=== PATIENT | male | born 1960 | race Caucasian/White ===

== ENCOUNTER 2020-08-31 15:25 | Inpatient (IN) ==
[2020-08-31] MEDS ORDERED: MoRPHine SULFATE 4 MG/ML 1 ML CARP\\VIAL IV STA (15:41)
[2020-08-31] MEDS ORDERED: SODIUM CHLORIDE 0.9% 1000ML 1,000 ML IV ONE (15:44)
--- NOTE | 2020-08-31 15:46 | Emergency Department Note ---
Impression & Plan Acute cholecystitis, Abdominal pain, Acute hypernatremia, Dehydration ED Provider Note Provider: Ignacio Conley MD DATE OF SERVICE:08/31/2020 CHIEF COMPLAINT: Abdominal pain, decreased appetite HISTORY OF PRESENT ILLNESS: Patient is a 60-year-old gentleman history of gout, dementia nonverbal, hypothyroidism, hypertension presenting here via ambulance from his facility in [place] today reportedly with 3 days of worsening abdominal pain decreased intake and not being his normal self and not being able to get out of bed. No bowel movement for 3 is reported. No nausea or vomiting is note d per EMS report. I do report a KUB was obtained there but I do not see results for this. Patient himself is in a provide significant history as he is nonverbal. Patient's states she does not have much more about his acute status as he been nonverbal for more than a year and she has not seen him since lockdown for the and January. No history of intra-abdominal surgeries are reported. There is been no reported trauma or fevers from the available information. REVIEW OF SYSTEMS: Noted secondary to the patient's nonverbal status PAST MEDICAL HISTORY: As noted above MEDICATIONS: Reviewed MAR from the facility of home medications including Depakote SOCIAL HISTORY: , currently resides at [facility] in [place] PHYSICAL EXAM: GENERAL: alert to loud verbal and physical stimuli. Nonverbal himself. Head: normocephalic and atraumatic EYES: No injection, discharge or icterus. NECK: Trachea midline. Supple. ENT: Mucous membranes pink and moist. LUNGS: Airway patent. No retractions. Breath sounds clear HEART: Regular rate and rhythm. No chest wall tenderness ABDOMEN: Guarding with some diffuse abdominal tenderness predominantly on the right side of the mid abdomen. No masses appreciated. BACK: No bilateral flank tenderness. SKIN: Acyanotic, warm, dry, without rashes EXTREMITIES: Without swelling, tenderness or deformity NEUROLOGICAL: Moves all extremities. Nonverbal. EKG: Normal sinus rhythm 97 bpm. No PVC or PAC. No acute ST segment elevation or depression. Normal QTC. CONTINUOUS CARDIAC MONITORING: was ordered and showed a heart rate of 92 bpm in normal sinus rhythm Patient's laboratory studies and imaging reviewed. Differential includes Appendicitis, infections, diverticulitis, UTI, obstruction, mesenteric ischemia, aortic pathology, inflammatory bowel disease, renal colic, PUD, pancreatitis, biliary pathology, hernia, volvulus, constipation, as well as other pathologies. IMPRESSION/MEDICAL DECISION MAKING: Patient presents with [facility] facility for several days of abdominal pain like a bowel movement decreased appetite and not been able to get around like normal. No trauma is reported. Patient himself provides limited history due to nonverbal status. Patient does not describe significant intra-abdominal hi story other than possibly some gallbladder sludge in the past. Patient does appear to be guarding and having some abdominal tenderness on exam. Basic labs were completed as well as an EKG, troponin, and a CT scan of the abdomen pelvis to look for possible etiologies. Patient given some morphine for pain and some IV fluids a liter of normal saline. Labs show white count of 10 with mild anemia 12.6. Hypernatremia of 147 noted creatinine of 1.36 and BUN is slightly elevated 3 8. Prior kidney function the question of there is a mild dehydration he did receive IV fluids. Valproic acid level not significantly elevated. Troponins undetectable. Bilirubin 0.8 and AST and ALT not elevated and no signs of transaminitis or hepatitis. Lipase not elevated and seem consistent with pancreatitis. CT scan shows evidence of a thickened distended gallbladder with surrounding inflammatory changes highly suspicious for acute cholecystitis with a few enlarged lymph nodes noted. No evidence of bowel obstruction or appendicitis. Trace pleural effusions noted. With this finding I did give the patient a dose of Zosyn. Discussed and he is more comfortable on reevaluation. Updated . Alerted our general surgeon to evaluate the patient. Given his medical history of hyponatremia will discuss with the hospitalist for further medical admission and again surgical consultation for acute cholecystectomy is pending from our surgeon. Rapid Covid test to facilitate possible OR case was initiated. DIAGNOSIS: Acute cholecystitis, hyponatremia, dehydration, abdominal pain DISPOSITION: Hospitalist will evaluate as well as general surgeon Patient's is updated and agreeable with the plan. Past Med/Surg History Social History Smoking Status: Former smoker Feels Safe at Home: Yes Allergies Allergies Allergy/AdvReac Type Severity Reaction Status Date / Time No Known Allergies Allergy Verified 08/31/20 16:52 Home Meds Home Medications Medication Instructions Recorded Confirmed B complex-vitamin C-folic acid 1 tab PO DAILY 08/31/20 08/31/20 [Folbee Plus] acetaminophen [Tylenol Extended 1,200 mg PO TID PRN MDD 5 08/31/20 08/31/20 Release] TABLETS/24 HOURS acetaminophen [Tylenol Extended 650 mg PO TID PRN MDD 5 TABLETS/24 08/31/20 08/31/20 Release] HOURS cholecalciferol (vitamin D3) 2,000 unit PO DAILY 08/31/20 08/31/20 [Vitamin D3] divalproex 250 mg PO BID 08/31/20 08/31/20 docusate sodium [DOK] 100 mg PO BID 08/31/20 08/31/20 escitalopram oxalate 10 mg PO DAILY 08/31/20 08/31/20 febuxostat 40 mg PO DAILY 08/31/20 08/31/20 hydroxyzine HCl 50 mg PO Q6H PRN 08/31/20 08/31/20 ibuprofen 400 mg PO BID 08/31/20 08/31/20 levothyroxine 88 mcg PO DAILY 08/31/20 08/31/20 magnesium hydroxide [Milk of 30 ml PO DAILY PRN 08/31/20 08/31/20 Magnesia] melatonin 3 mg PO HS 08/31/20 08/31/20 memantine 28 mg PO DAILY 08/31/20 08/31/20 mirtazapine 15 mg PO HS 08/31/20 08/31/20 quetiapine 100 mg PO TID 08/31/20 08/31/20 sennosides [senna] 8.6 mg PO Q2D 08/31/20 08/31/20 telmisartan 20 mg PO HS 08/31/20 08/31/20 Results & Data (ED) Vital Signs Vital Signs - 24 hr 08/31/20 15:52 08/31/20 16:06 08/31/20 16:11 Temperature 36.8 C Temperature Source Oral Pulse Rate 81 88 98 H Pulse Rate [Finger] Pulse Rate from SpO2 Sensor 88 97 H Respiratory Rate 17 24 22 Blood Pressure 127/77 128/80 Blood Pressure Mean 93 90 Pulse Oximetry 98 98 96 Oxygen Delivery Method Room Air Sepsis Recent Fever Within 48 Hours No Sepsis New/Unexplained Change in Mental Status N/A Sepsis Action Taken by Nursing No Action Required 08/31/20 16:12 08/31/20 16:30 08/31/20 17:12 Temperature Temperature Source Pulse Rate 86 98 H Pulse Rate [Finger] Pulse Rate from SpO2 Sensor 111 H Respiratory Rate 16 15 Blood Pressure 128/86 Blood Pressure Mean 108 Pulse Oximetry 97 92 Oxygen Delivery Method Room Air Sepsis Recent Fever Within 48 Hours Sepsis New/Unexplained Change in Mental Status Sepsis Action Taken by Nursing 08/31/20 17:14 08/31/20 17:30 08/31/20 18:00 Temperature Temperature Source Pulse Rate 92 H 92 H Pulse Rate [Finger] 96 H Pulse Rate from SpO2 Sensor Respiratory Rate 17 22 17 Blood Pressure Blood Pressure Mean Pulse Oximetry 98 Oxygen Delivery Method Room Air Sepsis Recent Fever Within 48 Hours Sepsis New/Unexplained Change in Mental Status Sepsis Action Taken by Nursing 08/31/20 18:05 Temperature Temperature Source Pulse Rate 93 H Pulse Rate [Finger] Pulse Rate from SpO2 Sensor Respiratory Rate 20 Blood Pressure 155/81 H Blood Pressure Mean 104 Pulse Oximetry Oxygen Delivery Method Sepsis Recent Fever Within 48 Hours Sepsis New/Unexplained Change in Mental Status Sepsis Action Taken by Nursing Laboratory Data Result diagrams: 08/31/20 16:05 08/31/20 16:05 Lab Results 08/31/20 08/31/20 08/31/20 Range/Units 16:05 16:05 16:05 WBC 10.20 (4.8-10.8) K/uL RBC 3.99 L (4.7-6.1) M/uL Hgb 12.6 L (14.0-18.0) g/dL Hct 37.6 L (42-52) % MCV 94.2 (80-100) fL MCH 31.6 (25-34) pg MCHC 33.5 (32-36) g/dL RDW Std Deviation 46.7 H (36.4-46.3) fL RDW Coeff of Stella 13.4 (11.5-14.5) % Plt Count 360 (130-400) K/uL MPV 9.8 (7.4-10.4) fL Immature Gran % (Auto) 0.2 % Neut % (Auto) 79.8 % Lymph % (Auto) 11.4 % [place] % (Auto) 8.0 % Eos % (Auto) 0.5 % Baso % (Auto) 0.1 % Neut # (Auto) 8.14 H (1.4-6.5) K/uL Lymph # (Auto) 1.16 L (1.2-3.4) K/uL [place] # (Auto) 0.82 H (0.11-0.59) K/uL Eos # (Auto) 0.05 (0-0.5) K/uL Baso # (Auto) 0.01 (0-0.2) K/uL Immature Gran # (Auto) 0.02 (0.00-0.02) K/uL Sodium 147 H (136-145) mmol/L Potassium 4.0 (3.5-5.1) mmol/L Chloride 113 H (98-107) mmol/L Carbon Dioxide 28 (21-32) mmol/L Anion Gap 6.0 (3-11) BUN 38 H (7-18) mg/dl Creatinine 1.36 (0.6-1.4) mg/dl Est Cr Clr Drug Dosing 52.7 ml/min Est GFR ( Amer) 64.2 Est GFR (Non-Af Amer) 55.4 BUN/Creatinine Ratio 27.6 H (10-20) Glucose 102 H (70-99) mg/dl Calcium 9.6 (8.5-10.1) mg/dl Total Bilirubin 0.8 (0.2-1) mg/dl AST 30 (15-37) U/L ALT 46 (12-78) U/L Alkaline Phosphatase 103 (45-117) U/L Troponin I < 0.015 (0-0.045) ng/ml Total Protein 7.8 (6.4-8.2) gm/dl Albumin 2.5 L (3.4-5.0) gm/dl Globulin 5.3 H (2.5-4.0) gm/dl Albumin/Globulin Ratio 0.5 L (0.9-2) Lipase 79 (73-393) U/L Valproic Acid 27 L (50-100) mcg/ml COVID-19 Eval Order 08/31/20 Range/Units 18:10 WBC (4.8-10.8) K/uL RBC (4.7-6.1) M/uL Hgb (14.0-18.0) g/dL Hct (42-52) % MCV (80-100) fL MCH (25-34) pg MCHC (32-36) g/dL RDW Std Deviation (36.4-46.3) fL RDW Coeff of Stella (11.5-14.5) % Plt Count (130-400) K/uL MPV (7.4-10.4) fL Immature Gran % (Auto) % Neut % (Auto) % Lymph % (Auto) % [place] % (Auto) % Eos % (Auto) % Baso % (Auto) % Neut # (Auto) (1.4-6.5) K/uL Lymph # (Auto) (1.2-3.4) K/uL [place] # (Auto) (0.11-0.59) K/uL Eos # (Auto) (0-0.5) K/uL Baso # (Auto) (0-0.2) K/uL Immature Gran # (Auto) (0.00-0.02) K/uL Sodium (136-145) mmol/L Potassium (3.5-5.1) mmol/L Chloride (98-107) mmol/L Carbon Dioxide (21-32) mmol/L Anion Gap (3-11) BUN (7-18) mg/dl Creatinine (0.6-1.4) mg/dl Est Cr Clr Drug Dosing ml/min Est GFR ( Amer) Est GFR (Non-Af Amer) BUN/Creatinine Ratio (10-20) Glucose (70-99) mg/dl Calcium (8.5-10.1) mg/dl Total Bilirubin (0.2-1) mg/dl AST (15-37) U/L ALT (12-78) U/L Alkaline Phosphatase (45-117) U/L Troponin I (0-0.045) ng/ml Total Protein (6.4-8.2) gm/dl Albumin (3.4-5.0) gm/dl Globulin (2.5-4.0) gm/dl Albumin/Globulin Ratio (0.9-2) Lipase (73-393) U/L Valproic Acid (50-100) mcg/ml COVID-19 Eval Order Covid19 [facility]Now [facility] Administered Medications Discontinued Medications Sodium Chloride (Nss 1000ml) 1,000 mls @ 999 mls/hr IV .Q1H1M ONE Stop: 08/31/20 16:44 Last Infusion: 08/31/20 17:18 Dose: 0 mls/hr Documented by: [id number] Admin: 08/31/20 16:14 Dose: 999 mls/hr Documented by: [id number] Piperacillin Sod/Tazobactam Sod (Zosyn) 4.5 gm in 120 mls @ 240 mls/hr IV NOW ONE Stop: 08/31/20 18:06 Last Admin: 08/31/20 18:22 Dose: 240 mls/hr Documented by: [id number] Ioversol (Ioversol 100ml) 91 ml IV ONCE ONE Stop: 08/31/20 17:04 Last Admin: 08/31/20 17:04 Dose: 91 ml Documented by: [id number] Morphine Sulfate (Morphine Sulfate 4 Mg/Ml 1 Ml Carp\Vial) 4 mg IV NOW STA Stop: 08/31/20 15:42 Last Admin: 08/31/20 16:14 Dose: 4 mg Documented by: [id number] Discharge Plan Visit Data Chief Complaint: Abdominal Pain Stated Complaint: AB PAIN, CONSTIPATION ED Provider: Ignacio Conley Discharge Problem: Acute cholecystitis, Abdominal pain, Acute hypernatremia, Dehydration Patient Disposition: Being Evaluated by Hospitalist Prescriptions Prescriptions: No Action Folbee Plus 5 mg Tablet 1 tab PO DAILY RF: 0 divalproex 250 mg Tablet,Delayed Release (Dr/Ec) 250 mg PO BID RF: 0 melatonin 3 mg Tablet 3 mg PO HS RF: 0 levothyroxine 88 mcg Tablet 88 mcg PO DAILY RF: 0 ibuprofen 200 mg Tablet 400 mg PO BID RF: 0 docusate sodium [DOK] 100 mg Capsule 100 mg PO BID RF: 0 escitalopram oxalate 10 mg Tablet 10 mg PO DAILY RF: 0 febuxostat 40 mg Tablet 40 mg PO DAILY RF: 0 memantine 28 mg Capsule,Sprinkle,Er 24hr 28 mg PO DAILY RF: 0 sennosides [senna] 8.6 mg Tablet 8.6 mg PO Q2D RF: 0 hydroxyzine HCl 50 mg Tablet 50 mg PO Q6H PRN (Reason: Anxiety) RF: 0 quetiapine 100 mg Tablet 100 mg PO TID RF: 0 acetaminophen [Tylenol Extended Release] 650 mg Tablet Extended Release 650 mg PO TID MDD 5 TABLETS/24 HOURS PRN (Reason: Pain, Mild) RF: 0 acetaminophen [Tylenol Extended Release] 650 mg Tablet Extended Release 1,200 mg PO TID MDD 5 TABLETS/24 HOURS PRN (Reason: Pain, Severe) RF: 0 magnesium hydroxide [Milk of Magnesia] 400 mg/5 mL Suspension 30 ml PO DAILY PRN (Reason: Constipation) RF: 0 telmisartan 20 mg Tablet 20 mg PO HS RF: 0 mirtazapine 15 mg Tablet 15 mg PO HS RF: 0 cholecalciferol (vitamin D3) [Vitamin D3] 50 mcg (2,000 unit) Tablet 2,000 unit PO DAILY RF: 0 Referrals Referrals: Won Barton MD [Primary Care Provider] - Discharge Problem: Abdominal pain Qualifiers: Abdominal location: generalized Qualified Code(s): R10.84 - Generalized abdominal pain
[2020-08-31 16:17] LABS: Basophils # (auto) 0.01 K/uL (0-0.2); Basophils % (auto) 0.1 %; Eosinophils # (auto) 0.05 K/uL (0-0.5); Eosinophils % (auto) 0.5 %; Hematocrit (blood only) 37.6 % (42-52); Hemoglobin 12.6 g/dL (14.0-18.0); Immature Granulocytes # (auto) 0.02 K/uL (0.00-0.02); Immature Granulocytes % (auto) 0.2 %; Lymphocytes # (auto) 1.16 K/uL (1.2-3.4); Lymphocytes % (auto) 11.4 %; Mean Corpuscular Hemoglobin 31.6 pg (25-34); Mean Corpuscular Hgb Conc 33.5 g/dL (32-36); Mean Corpuscular Volume 94.2 fL (80-100); Mean Platelet Volume 9.8 fL (7.4-10.4); Monocytes # (auto) 0.82 K/uL (0.11-0.59); Neutrophils # (auto) 8.14 K/uL (1.4-6.5); Neutrophils % (auto) 79.8 %; Platelet Count 360 K/uL (130-400); RDW Coefficient of Variation 13.4 % (11.5-14.5); RDW Standard Deviation 46.7 fL (36.4-46.3); Red Blood Count 3.99 M/uL (4.7-6.1)
--- NOTE | 2020-08-31 16:24 | XRay Report ---
XR chest 1V portable HISTORY: 60 years-old Male abd pain acute atypical chest and abdominal pain COMPARISON: None TECHNIQUE: Portable AP view the chest FINDINGS: Cardiac silhouette appears to be upper limits of normal in size. Lungs are hypoinflated. Small pleura l effusions with linear bibasilar opacities. No overt pulmonary edema or pneumothorax. Bones of the c hest appear grossly intact. IMPRESSION: 1. Small pleural effusions with linear bibasilar atelectasis. 2. Hypoinflation. ACT 112: Negative or not required by law. The above report was generated using voice recognition software. It may contain grammatical, syntax o r spelling errors. Electronically signed by: Jay Leyva M.D. 08/31/2020 4:22 PM
[2020-08-31 16:33] LABS: Alanine Aminotransferase 46 U/L (12-78); Albumin Level 2.5 gm/dl (3.4-5.0); Aspartate Aminotransferase 30 U/L (15-37); BUN Creatinine Ratio 27.6 (10-20); Blood Urea Nitrogen 38 mg/dl (7-18); Calcium 9.6 mg/dl (8.5-10.1); Carbon Dioxide 28 mmol/L (21-32); Chloride 113 mmol/L (98-107); Creatinine Clr Calc Pharmacy 52.7 ml/min; Est GFR (African American) 64.2; Est GFR (Non-African American) 55.4; Glucose 102 mg/dl (70-99); Lipase 79 U/L (73-393); Sodium 147 mmol/L (136-145)
[2020-08-31 16:38] LABS: Albumin Globulin Ratio 0.5 (0.9-2); Alkaline Phosphatase 103 U/L (45-117); Bilirubin,Total 0.8 mg/dl (0.2-1); Globulin 5.3 gm/dl (2.5-4.0); Total Protein 7.8 gm/dl (6.4-8.2); Troponin I < 0.015 ng/ml (0-0.045)
[2020-08-31] MEDS ORDERED: IOVERSOL 100ml IV ONE (17:03)
--- NOTE | 2020-08-31 17:29 | CT Scan Report ---
ABDOMEN AND PELVIS CT WITH IV CONTRAST CT DOSE: 865.04 mGy.cm HISTORY: Generalized abdominal pain, constipation TECHNIQUE: Multiaxial CT images of the abdomen and pelvis were performed following the use of intrave nous contrast. A dose lowering technique was utilized adhering to the principles of ALARA. COMPARISON STUDY: None. FINDINGS: There are trace bilateral pleural effusions. Bilateral lower lobe densities favor atelectas is. No pneumoperitoneum. No pneumatosis. L3-L5 posterior decompression and fusion with pedicle screws and rods. The hardware appears intact. Small fat-containing umbilical hernia. No hepatic or splenic masses. The adrenal glands and pancreas are within normal limits. There are few small bilateral renal hypodense lesions. These favor cysts. No hydronephrosis. Normal bladder. The main portal vein is pat ent. Normal caliber abdominal aorta. Multiple borderline enlarged retroperitoneal lymph nodes are not ed. There are few mildly enlarged periportal lymph nodes. These may be reactive. The gallbladder is d istended and demonstrates a diffusely thickened wall. There is associated pericholecystic fluid and f at stranding. Therefore, this is highly suspicious for acute cholecystitis. Common bile duct appears normal in caliber. There is a 1 cm diverticulum at the second portion of the duodenum. No evidence fo r bowel obstruction. A few scattered colonic diverticula. No evidence for acute diverticulitis. Small to moderate amount of well-formed stool seen within the colon. Normal appendix. IMPRESSION: 1. Diffusely thickened and distended gallbladder with surrounding pericholecystic inflammatory change and fluid. This is highly suspicious for acute cholecystitis. Surgical consultation recommended. 2. A few mildly enlarged periportal lymph nodes which are likely reactive to the suspected acute chol ecystitis. 3. No bowel wall thickening or obstruction. 4. Normal appendix. 5. Colonic diverticulosis. 6. Trace bilateral pleural effusions. 7. Right basilar densities favor atelectasis. ACT 112: Negative or not required by law. Electronically signed by: Jose Luis Bernardo M.D. 08/31/2020 5:27 PM
[2020-08-31] MEDS ORDERED: PIPERACILL/TAZOBAC CONSULT ACTIVE PRN (17:37)
[2020-08-31] MEDS ORDERED: PIPERACILLIN/TAZOBACTAM 4.5 GM/120 ML BAG IV ONE (17:37)
--- NOTE | 2020-08-31 18:47 | History & Physical Report ---
Date of Service August 31, 2020 Assessment & Plan (1) Acute cholecystitis: Zosyn per surgery recommendations NPO after midnight, IV fluids Consult surgery - Discussed with Dr Leblanc at bedside. Revised cardiac risk index 0, medical optimized for surgery High risk of delirium post procedure. (2) Abdominal pain: Acetaminophen PRN +/- morphine PRN (3) Frontotemporal dementia: Continue his routine memantine, mirtazapine, Seroquel. (4) DVT prophylaxis: SCDs would not be tolerated due to his dementia. Consider chemical prophylaxis post operatively. Admission and Anticipated Discharge Date Admission Date: 08/31/2020 History of Present Illness Primary Care Provider: Won Barton MD Ki Lozano is a 60 year old male with frontotemporal dementia, hypothyroidism who presents from a locked memory care unit ([facility] [place]) due to a 2 day history of abdominal pain, decreased oral intake and increased lethargy. Unable to get any history from patient due to severe frontotemporal dementia. His baseline is non-verbal but is ambulatory without assistance. at bedside but she has not seen him since January due to the current pandemic. She denies he has any history cardiovascular disease. Allergies Allergy/AdvReac Type Severity Reaction Status Date / Time No Known Allergies Allergy Verified 08/31/20 16:52 Home Medications Home Medications Medication Instructions Recorded Confirmed Type B complex-vitamin C-folic acid 1 tab PO DAILY 08/31/20 08/31/20 History [Folbee Plus] acetaminophen [Tylenol Extended 1,200 mg PO TID PRN MDD 5 08/31/20 08/31/20 History Release] TABLETS/24 HOURS acetaminophen [Tylenol Extended 650 mg PO TID PRN MDD 5 TABLETS/24 08/31/20 08/31/20 History Release] HOURS cholecalciferol (vitamin D3) 2,000 unit PO DAILY 08/31/20 08/31/20 History [Vitamin D3] divalproex 250 mg PO BID 08/31/20 08/31/20 History docusate sodium [DOK] 100 mg PO BID 08/31/20 08/31/20 History escitalopram oxalate 10 mg PO DAILY 08/31/20 08/31/20 History febuxostat 40 mg PO DAILY 08/31/20 08/31/20 History hydroxyzine HCl 50 mg PO Q6H PRN 08/31/20 08/31/20 History ibuprofen 400 mg PO BID 08/31/20 08/31/20 History levothyroxine 88 mcg PO DAILY 08/31/20 08/31/20 History magnesium hydroxide [Milk of 30 ml PO DAILY PRN 08/31/20 08/31/20 History Magnesia] melatonin 3 mg PO HS 08/31/20 08/31/20 History memantine 28 mg PO DAILY 08/31/20 08/31/20 History mirtazapine 15 mg PO HS 08/31/20 08/31/20 History quetiapine 100 mg PO TID 08/31/20 08/31/20 History sennosides [senna] 8.6 mg PO Q2D 08/31/20 08/31/20 History telmisartan 20 mg PO HS 08/31/20 08/31/20 History Past Med/Surg History Medical History Frontotemporal dementia Hypertension Hypothyroidism Social History Smoking Status: Never smoker Hx Alcohol Use: No Hx Substance Use: No Preferred Language: Bolivian Communication Ability: Unable Telegraphic Instrument Supervisor Required: No Beliefs That Will Affect Care: None Current Living Situation: Jail Other Information That Helps Us Care for You: No Feels Safe at Home: Yes Safety Concerns: Feels Safe At This Time Assistive Devices: None Review of Systems Review of Systems: Unobtainable due to cognitive status Physical Exam Constitutional: well developed and well nourished; no acute distress Eyes: + anicteric sclerae; normal pupil size ENMT: Mouth: + dry oral mucous membranes Neck: trachea midline, no thyromegaly Respiratory: normal respiratory effort, lungs clear to auscultation Cardiovascular: Rate/Rhythm: regular rhythm and + tachycardic Heart Sounds: no murmur Extremities: normal capillary refill; no calf tenderness and no pedal edema Gastrointestinal (Abdomen): Inspection/Auscultation: normal bowel sounds Percussion/Palpation: + abdomen tender (generalized gimacing to palpation) and abdomen soft; no guarding and abdomen not rigid Skin: no rashes, warm and dry Neurologic: moves all extremities, awake and + confused Psychiatric: Orientation: alert; + not oriented x 3 (non-verbal) Results & Data Results & Data ([facility]) Vital Signs (Past 12 Hours) Vital Signs Temp Pulse Pulse Resp BP Pulse Ox 08/31/20 18:05 93 H 20 155/81 H 08/31/20 18:00 92 H 17 08/31/20 17:30 92 H 22 08/31/20 17:14 96 H 17 98 08/31/20 17:12 98 H 15 92 08/31/20 16:30 86 16 128/86 08/31/20 16:12 97 08/31/20 16:11 98 H 22 96 08/31/20 16:06 88 24 128/80 98 08/31/20 15:52 36.8 C 81 17 127/77 98 Diagnostic Findings XR chest 1V portable IMPRESSION: 1. Small pleural effusions with linear bibasilar atelectasis. 2. Hypoinflation. ABDOMEN AND PELVIS CT WITH IV CONTRAST IMPRESSION: 1. Diffusely thickened and distended gallbladder with surrounding pericholecystic inflammatory change and fluid. This is highly suspicious for acute cholecystitis. Surgical consultation recommended. 2. A few mildly enlarged periportal lymph nodes which are likely reactive to the suspected acute cholecystitis. 3. No bowel wall thickening or obstruction. 4. Normal appendix. 5. Colonic diverticulosis. 6. Trace bilateral pleural effusions. 7. Right basilar densities favor atelectasis. ECG Indication: other Rate (beats per minute): 97 Rhythm: normal sinus Findings: no acute ischemic change Comparison ECG Date: no prior available Code Status & VTE Plan Code Status DNR/DNI as discussed with his at bedside VTE Prophylaxis Plan VTE Prophylaxis will be ordered: Yes PG Care Time/CCT Total # of Minutes Spent Total Time Spent with Patient: Total time spent is greater than 50% in coordination of care (as documented) at patient's floor/unit and/or counseling patient: Coding Level of Care Code 95320 Initial Inpt Care Lvl 2 Diagnoses Acute cholecystitis K81.0 Abdominal pain R10.84 Abdominal location: generalized Frontotemporal dementia G31.09; F02.80 DVT prophylaxis Z29.9 (1) Abdominal pain Abdominal location: generalized Qualified Code(s): R10.84 - Generalized abdominal pain
--- NOTE | 2020-08-31 19:37 | Consultation ---
Date of Consultation August 31, 2020 Assessment & Plan (1) Acute cholecystitis: pt is 60 year-old male who presents to Er with 3 days history abdominal pain, IMP: acute cholecystitis, Plan, I recommend to do laparoscopic cholecystectomy, possible open or cholangiogram, D/w benefits, risk sand alternatives of the surgery, the risks - infection, bleeding, injury CBD, pt's family member understood, she agrees with the surgery, I answered all questions, NPO after MN Present on Admission?: Yes (2) Abdominal pain: History of Present Illness CHIEF COMPLAINT: Abdominal pain, decreased appetite HISTORY OF PRESENT ILLNESS: Patient is a 60-year-old gentleman history of gout, dementia nonverbal, hypothyroidism, hypertension presenting here via ambulance from his facility in [place] today reportedly with 3 days of worsening abdominal pain decreased intake and not being his normal self and not being able to get out of bed. No bowel movement for 3 is reported. No nausea or vomiting is noted per EMS report. I do report a KUB was obtained there but I do not see results for this. Patient himself is in a provide significant history as he is nonverbal. Patient's states she does not have much more about his acute status as he been nonverbal for more than a year and she has not seen him since lockdown for the and January. No history of intra-abdominal surgeries are reported. There is been no reported trauma or fevers from the available information. I ( Kentrell Leblanc MD ) got a call for consult acute cholecystitis, I reviewed pt's H/P, labs, CT scan with pt and his family member, REVIEW OF SYSTEMS: Noted secondary to the patient's nonverbal status PAST MEDICAL HISTORY: As noted above MEDICATIONS: Reviewed MAR from the facility of home medications including Depakote SOCIAL HISTORY: , currently resides at [facility] in [place] History of Present Illness CHIEF COMPLAINT: Abdominal pain, decreased appetite HISTORY OF PRESENT ILLNESS: Patient is a 60-year-old gentleman history of gout, dementia nonverbal, hypothyroidism, hypertension presenting here via ambulance from his facility in [place] today reportedly with 3 days of worsening abdominal pain decreased intake and not being his normal self and not being able to get out of bed. No bowel movement for 3 is reported. No nausea or vomiting is noted per EMS report. I do report a KUB was obtained there but I do not see results for this. Patient himself is in a provide significant history as he is nonverbal. Patient's states she does not have much more about his acute status as he been nonverbal for more than a year and she has not seen him since lockdown for the and January. No history of intra-abdominal surgeries are reported. There is been no reported trauma or fevers from the available information. I ( Kentrell Leblanc MD ) got a call for consult acute cholecystitis, I reviewed pt's H/P, labs, CT scan with pt and family member, REVIEW OF SYSTEMS: Noted secondary to the patient's nonverbal status PAST MEDICAL HISTORY: As noted above MEDICATIONS: Reviewed MAR from the facility of home medications including Depakote SOCIAL HISTORY: , currently resides at [facility] in [place] Allergies Allergy/AdvReac Type Severity Reaction Status Date / Time No Known Allergies Allergy Verified 08/31/20 16:52 Home Medications Home Medications Medication Instructions Recorded Confirmed Type B complex-vitamin C-folic acid 1 tab PO DAILY 08/31/20 08/31/20 History [Folbee Plus] acetaminophen [Tylenol Extended 1,200 mg PO TID PRN MDD 5 08/31/20 08/31/20 History Release] TABLETS/24 HOURS acetaminophen [Tylenol Extended 650 mg PO TID PRN MDD 5 TABLETS/24 08/31/20 08/31/20 History Release] HOURS cholecalciferol (vitamin D3) 2,000 unit PO DAILY 08/31/20 08/31/20 History [Vitamin D3] divalproex 250 mg PO BID 08/31/20 08/31/20 History docusate sodium [DOK] 100 mg PO BID 08/31/20 08/31/20 History escitalopram oxalate 10 mg PO DAILY 08/31/20 08/31/20 History febuxostat 40 mg PO DAILY 08/31/20 08/31/20 History hydroxyzine HCl 50 mg PO Q6H PRN 08/31/20 08/31/20 History ibuprofen 400 mg PO BID 08/31/20 08/31/20 History levothyroxine 88 mcg PO DAILY 08/31/20 08/31/20 History magnesium hydroxide [Milk of 30 ml PO DAILY PRN 08/31/20 08/31/20 History Magnesia] melatonin 3 mg PO HS 08/31/20 08/31/20 History memantine 28 mg PO DAILY 08/31/20 08/31/20 History mirtazapine 15 mg PO HS 08/31/20 08/31/20 History quetiapine 100 mg PO TID 08/31/20 08/31/20 History sennosides [senna] 8.6 mg PO Q2D 08/31/20 08/31/20 History telmisartan 20 mg PO HS 08/31/20 08/31/20 History Patient History Social History Smoking Status: Former smoker Feels Safe at Home: Yes Review of Systems Review of Systems: All systems reviewed & are unremarkable except as noted in HPI & below Constitutional: as per Subjective / HPI dementia Eyes: as per Subjective / HPI Ear, Nose, Mouth, Throat: as per Subjective / HPI Respiratory: as per Subjective / HPI Cardiovascular: as per Subjective / HPI Additional Comments: HTN Gastrointestinal: as per Subjective / HPI abdominal pain Genitourinary: + as per Subjective / HPI Musculoskeletal: as per Subjective / HPI Integumentary: as per Subjective / HPI Neurologic: as per Subjective / HPI Psychiatric: as per Subjective / HPI Endocrine: as per Subjective / HPI hypothyroidism Physical Exam Constitutional: WD/WN, vitals as above well developed and well nourished Eyes: PERRL, conjunctivae normal, anicteric sclerae ENMT: external ear and nose normal, oropharynx normal Neck: trachea midline, no thyromegaly Respiratory: normal respiratory effort, lungs clear to auscultation Cardiovascular: RRR, no murmur, no edema Rate/Rhythm: regular rate and regular rhythm Gastrointestinal (Abdomen): Percussion/Palpation: + abdomen tender and abdomen soft tenderness on RUQ, no rebound pain, no distend Musculoskeletal: no cyanosis or clubbing, extremities motor strength 5/5 Skin: no rashes, warm and dry Neurologic: awake Psychiatric: Orientation: + guarded Results & Data ([facility]) Vital Signs (Past 12 Hours) Vital Signs Temp Pulse Pulse Resp BP Pulse Ox 08/31/20 19:13 90 18 150/80 H 95 08/31/20 18:05 93 H 20 155/81 H 08/31/20 18:00 92 H 17 08/31/20 17:30 92 H 22 08/31/20 17:14 96 H 17 98 10/28/20 17:12 98 H 15 92 08/31/20 16:30 86 16 128/86 08/31/20 16:12 97 08/31/20 16:11 98 H 22 96 08/31/20 16:06 88 24 128/80 98 08/31/20 15:52 36.8 C 81 17 127/77 98 Laboratory Results Abnormal lab results 08/31/20 08/31/20 08/31/20 Range/Units 16:05 16:05 16:05 RBC 3.99 L (4.7-6.1) M/uL Hgb 12.6 L (14.0-18.0) g/dL Hct 37.6 L (42-52) % RDW Std Deviation 46.7 H (36.4-46.3) fL Neut # (Auto) 8.14 H (1.4-6.5) K/uL Lymph # (Auto) 1.16 L (1.2-3.4) K/uL [place] # (Auto) 0.82 H (0.11-0.59) K/uL Sodium 147 H (136-145) mmol/L Chloride 113 H (98-107) mmol/L BUN 38 H (7-18) mg/dl BUN/Creatinine Ratio 27.6 H (10-20) Glucose 102 H (70-99) mg/dl Albumin 2.5 L (3.4-5.0) gm/dl Globulin 5.3 H (2.5-4.0) gm/dl Albumin/Globulin Ratio 0.5 L (0.9-2) Valproic Acid 27 L (50-100) mcg/ml Diagnostic Findings ABDOMEN AND PELVIS CT WITH IV CONTRAST CT DOSE: 865.04 mGy.cm HISTORY: Generalized abdominal pain, constipation TECHNIQUE: Multiaxial CT images of the abdomen and pelvis were performed following the use of intravenous contrast. A dose lowering technique was utilized adhering to the principles of ALARA. COMPARISON STUDY: None. FINDINGS: There are trace bilateral pleural effusions. Bilateral lower lobe densities favor atelectasis. No pneumoperitoneum. No pneumatosis. L3-L5 posterior decompression and fusion with pedicle screws and rods. The hardware appears intact. Small fat-containing umbilical hernia. No hepatic or splenic masses. The adrenal glands and pancreas are within normal limits. There are few small bilateral renal hypodense lesions. These favor cysts. No hydronephrosis. Normal bladder. The main portal vein is patent. Normal caliber abdominal aorta. Multiple borderline enlarged retroperitoneal lymph nodes are noted. There are few mildly enlarged periportal lymph nodes. These may be reactive. The gallbladder is distended and demonstrates a diffusely thickened wall. There is associated pericholecystic fluid and fat stranding. Therefore, this is highly suspicious for acute cholecystitis. Common bile duct appears normal in caliber. There is a 1 cm diverticulum at the second portion of the duodenum. No evidence for bowel obstruction. A few scattered colonic diverticula. No evidence for acute diverticulitis. Small to moderate amount of well-formed stool seen within the colon. Normal appendix. IMPRESSION: 1. Diffusely thickened and distended gallbladder with surrounding pericholecystic inflammatory change and fluid. This is highly suspicious for acute cholecystitis. Surgical consultation recommended. 2. A few mildly enlarged periportal lymph nodes which are likely reactive to the suspected acute cholecystitis. 3. No bowel wall thickening or obstruction. 4. Normal appendix. 5. Colonic diverticulosis. 6. Trace bilateral pleural effusions. 7. Right basilar densities favor atelectasis. (1) Abdominal pain Abdominal location: generalized Qualified Code(s): R10.84 - Generalized abdominal pain
[2020-08-31] MEDS ORDERED: POLYETHYLENE (MIRALAX) 17 GM PACK PO PRN (19:46)
[2020-08-31] MEDS ORDERED: ONDANSETRON INJ 2 MG/ML 2 ML VIAL IV PRN (19:46)
[2020-08-31] MEDS: D5W AND 1/2NSS + 20MEQ KCL 20 MEQ/1,000 ML BAG IV SCH (21:06)
[2020-08-31] MEDS: DOCUSATE SODIUM 100 MG CAP PO SCH (21:07)
[2020-08-31] MEDS: DIVALPROEX DELAY RELEASE 250 MG TABEC PO SCH (21:07)
[2020-08-31] MEDS: MELATONIN 3 MG TAB PO SCH (21:07)
[2020-08-31] MEDS: ACETAMINOPHEN 325 MG TAB PO PRN (21:07)
[2020-08-31] MEDS: SENNA 8.6 MG TAB PO SCH (21:08)
[2020-08-31] MEDS: MIRTAZAPINE TAB 15 MG TAB PO SCH (21:08)
[2020-08-31] MEDS: QUEtiapine FUMARATE 100 MG TABLET PO SCH (21:08)
[2020-08-31] MEDS: PIPERACILLIN/TAZOBACTAM 3.375 GM in DEXTROSE 5% 100 ML IV SCH (22:26)
[2020-09-01 05:58] LABS: Hematocrit (blood only) 39.5 % (42-52); Hemoglobin 12.9 g/dL (14.0-18.0); Mean Corpuscular Hemoglobin 31.3 pg (25-34); Mean Corpuscular Hgb Conc 32.7 g/dL (32-36); Mean Corpuscular Volume 95.9 fL (80-100); Platelet Count 299 K/uL (130-400); RDW Coefficient of Variation 13.7 % (11.5-14.5); RDW Standard Deviation 48.5 fL (36.4-46.3); Red Blood Count 4.12 M/uL (4.7-6.1); White Blood Count 6.94 K/uL (4.8-10.8)
[2020-09-01 06:16] LABS: BUN Creatinine Ratio 20.8 (10-20); Calcium 8.6 mg/dl (8.5-10.1); Creatinine Clr Calc Pharmacy 54.5 ml/min; Est GFR (African American) 64.2; Est GFR (Non-African American) 55.4
[2020-09-01] MEDS: PIPERACILLIN/TAZOBACTAM 3.375 GM in DEXTROSE 5% 100 ML IV SCH ×3 (06:35→22:22)
[2020-09-01] MEDS: LEVOTHYROXINE SODIUM 88 MCG TABLET PO SCH (06:35)
[2020-09-01] MEDS: D5W AND 1/2NSS + 20MEQ KCL 20 MEQ/1,000 ML BAG IV SCH ×3 (06:35→21:23)
--- NOTE | 2020-09-01 08:29 | Hospitalist Progress Note ---
Date of Service September 01, 2020 Assessment & Plan (1) Acute cholecystitis: s/p cholecystecomy today Per Op note: significant inflammation on gallbladder wall with gangrene gallbladder with full pus Zosyn per surgery recommendations (2) Abdominal pain: related to acute cholecystitis Acetaminophen PRN morphine PRN (3) Elevated serum creatinine: Cr up to 1.36 unknown baseline likely related to poor PO intake/dehydration giving fluids repeat BMP in am (4) Anemia: normocytic anemia monitor (5) Frontotemporal dementia: Cont memantine, mirtazapine, Seroquel, depakote, lexapro (6) Hypertension: cont telmisartan (7) Hypothyroidism: cont synthroid (8) DVT prophylaxis: SCDs in place Admission and Anticipated Discharge Date Admission Date: August 31, 2020 Subjective Hx frontotemporal dementia lives in [facility]. Patient is nonverbal at baseline. at bedside providing history. Patient has had abdominal pain, lethargy, poor PO intake for several days. Went OR today for cholecystectomy. Per report, gallbladder was gangrenous. thinks patient is in pain, though improved from earlier. Believes pain meds are helping as he is grimacing less. No other current issues. No active vomiting or diarrhea. Review of Systems Review of Systems: Unobtainable due to cognitive status Physical Exam Constitutional: well developed and + ill appearing; no acute distress grimacing Eyes: PERRL, conjunctivae normal, anicteric sclerae ENMT: Mouth: oral mucous membranes not dry Respiratory: normal respiratory effort; no respiratory distress and no labored breathing Auscultation: lungs clear to auscultation bilaterally; no crackles, no rales, no rhonchi and no wheezes Cardiovascular: Rate/Rhythm: regular rate and regular rhythm Heart Sounds: no murmur and no cardiac rub Vessels: normal peripheral pulses and radial pulses present; no JVD Extremities: no edema Gastrointestinal (Abdomen): Inspection/Auscultation: abdomen normal to inspection and normal bowel sounds; abdomen not distended Percussion/Palpation: + abdomen tender, + guarding and + abdomen rigid; + abdomen not soft and no hepatosplenomegaly Musculoskeletal: Head/Neck/Chest: normocephalic and head atraumatic Spine: no cervical spinal tenderness, no cervical muscular tenderness, no thoracic spinal tenderness and no lumbar spinal tenderness Skin: no rashes, warm and dry Neurologic: CN's II-XI intact bilaterally and moves all extremities Motor/Sensory: no tremor and no sensory deficit nonverbal Psychiatric: Orientation: alert Apperance: appropriately groomed; not disheveled Genitourinary: no Echeverria catheter Results & Data Results & Data ([facility]) Vital Signs (Past 12 Hours) Vital Signs Temp Pulse Resp BP BP Pulse Ox 09/01/20 07:12 36.9 C 80 18 150/91 H 95 08/31/20 23:39 37.0 C 83 16 100/64 94 Laboratory Results Abnormal lab results 08/31/20 08/31/20 08/31/20 Range/Units 16:05 16:05 16:05 RBC 3.99 L (4.7-6.1) M/uL Hgb 12.6 L (14.0-18.0) g/dL Hct 37.6 L (42-52) % RDW Std Deviation 46.7 H (36.4-46.3) fL Neut # (Auto) 8.14 H (1.4-6.5) K/uL Lymph # (Auto) 1.16 L (1.2-3.4) K/uL [place] # (Auto) 0.82 H (0.11-0.59) K/uL Sodium 147 H (136-145) mmol/L Chloride 113 H (98-107) mmol/L BUN 38 H (7-18) mg/dl BUN/Creatinine Ratio 27.6 H (10-20) Glucose 102 H (70-99) mg/dl Albumin 2.5 L (3.4-5.0) gm/dl Globulin 5.3 H (2.5-4.0) gm/dl Albumin/Globulin Ratio 0.5 L (0.9-2) Valproic Acid 27 L (50-100) mcg/ml 09/01/20 09/01/20 Range/Units 05:22 05:22 RBC 4.12 L (4.7-6.1) M/uL Hgb 12.9 L (14.0-18.0) g/dL Hct 39.5 L (42-52) % RDW Std Deviation 48.5 H (36.4-46.3) fL Neut # (Auto) (1.4-6.5) K/uL Lymph # (Auto) (1.2-3.4) K/uL [place] # (Auto) (0.11-0.59) K/uL Sodium (136-145) mmol/L Chloride 116 H (98-107) mmol/L BUN 28 H (7-18) mg/dl BUN/Creatinine Ratio 20.8 H (10-20) Glucose 111 H (70-99) mg/dl Albumin (3.4-5.0) gm/dl Globulin (2.5-4.0) gm/dl Albumin/Globulin Ratio (0.9-2) Valproic Acid (50-100) mcg/ml Diagnostic Findings COVID negative CXR small pleural effusions with linear bibasilar atelectasis, hypoinflation CT abd/pelvis diffusely thickened and distended gallbladder with surrounding pericholecystic inflammatory change and fluid, highly suspicious for acute cholecystitis. Few mildly enlarged periportal lymph nodes which are likely reactive to suspected acute cholecystitis. No bowel wall thickening or obstruction. PG Care Time/CCT Total # of Minutes Spent Total Time Spent with Patient: Total time spent is greater than 50% in coordination of care (as documented) at patient's floor/unit and/or counseling patient: Coding Level of Care Code 71654 Subseq Hosp Care Lvl 3 Diagnoses Acute cholecystitis K81.0 Abdominal pain R10.84 Abdominal location: generalized Elevated serum creatinine R79.89 Anemia D64.9 Anemia type: unspecified type Frontotemporal dementia G31.09; F02.80 Hypertension I10 Hypertension type: unspecified Hypothyroidism E03.9 Hypothyroidism type: unspecified DVT prophylaxis Z29.9 (1) Abdominal pain Abdominal location: generalized Qualified Code(s): R10.84 - Generalized abdominal pain (2) Anemia Anemia type: unspecified type Qualified Code(s): D64.9 - Anemia, unspecified (3) Hypothyroidism Hypothyroidism type: unspecified Qualified Code(s): E03.9 - Hypothyroidism, unspecified (4) Hypertension Hypertension type: unspecified Qualified Code(s): I10 - Essential (primary) hypertension
[2020-09-01] MEDS: MoRPHine SULFATE 2 MG/ML CARP IV PRN ×2 (09:23→16:28)
[2020-09-01] MEDS ORDERED: ROCURONIUM BROMIDE 10 MG/ML 5 ML VIAL IV ONE ×3 (09:46→12:26)
[2020-09-01] MEDS ORDERED: PROPOFOL IV EMULSION 10 MG/ML 20 ML VIAL IV ONE (09:46)
[2020-09-01] MEDS ORDERED: ONDANSETRON INJ 2 MG/ML 2 ML VIAL ONE (09:46)
[2020-09-01] MEDS ORDERED: LIDOCAINE HCL 2% 2 ML VIAL/AMP(20MG/ML) INFIL ONE (09:46)
--- NOTE | 2020-09-01 10:00 | History & Physical Bridge Note ---
Date of Service September 01, 2020 History & Physical Bridge Note I have examined the patient, reviewed the History & Physical and in the interval since the performance of the History & Physical I have noted the following changes of clinical significance: no changes noted
[2020-09-01] MEDS ORDERED: HYDROmorphone INJ 1 MG/ML SYRINGE IV PRN (10:14)
[2020-09-01] MEDS ORDERED: ePHEDrine sulfate 50 MG/ML AMP IV PRN (10:14)
[2020-09-01] MEDS ORDERED: ATROPINE SULFATE 0.1 MG/ML 10ML SYR IV PRN (10:14)
[2020-09-01] MEDS ORDERED: fentaNYL citrate 100 MCG/2 ML VIAL IV PRN (10:14)
[2020-09-01] MEDS ORDERED: LABETALOL HCL IV 5 MG/ML 20ML IV PRN (10:14)
[2020-09-01] MEDS ORDERED: ONDANSETRON INJ 2 MG/ML 2 ML VIAL IV PRN (10:14)
[2020-09-01] MEDS ORDERED: PHENYLEPHRINE 100MCG/ML 5ML SYR IV PRN (10:14)
[2020-09-01] MEDS ORDERED: fentaNYL citrate 100 MCG/2 ML VIAL ONE ×2 (10:15→10:50)
[2020-09-01] MEDS ORDERED: BACITRACIN OINT 15 GM TUBE ONE (10:16)
[2020-09-01] MEDS ORDERED: LIDOCAINE HCL 1% 20 ML VIAL ONE (10:16)
[2020-09-01] MEDS ORDERED: BUPIVACAINE 0.5 % 5 MG/1 ML MPF 30ML VIAL ONE (10:16)
--- NOTE | 2020-09-01 10:20 | Anesthesiology Consultation ---
Date of Service September 01, 2020 Covid 19 negative from 08/31/20. The patient has fronto-temporal dementia. He is awake with open eyes but is not following any commands and has been nonverbal. His signed consent. Assessment & Plan (1) Encounter for pre-operative examination: Chart Review Chart Review: Acceptable Risk for Surgery and Patient NOT seen in Pre Admission Testing Consults Requested none History Surgery Operation Date: 09/01/20 08:10 Proposed Procedures p Laparoscopic Cholecystectomy - Kentrell Leblanc MD Height/Weight Height: 5 ft 8 in Weight: 72.1 kg Allergies Allergy/AdvReac Type Severity Reaction Status Date / Time No Known Allergies Allergy Verified 08/31/20 16:52 Medications Home Medications Medication Instructions Recorded Confirmed Last Taken B complex-vitamin C-folic acid 1 tab PO DAILY 08/31/20 08/31/20 Unknown [Folbee Plus] acetaminophen [Tylenol Extended 1,200 mg PO TID PRN MDD 5 08/31/20 08/31/20 Unknown Release] TABLETS/24 HOURS acetaminophen [Tylenol Extended 650 mg PO TID PRN MDD 5 TABLETS/24 08/31/20 08/31/20 Unknown Release] HOURS cholecalciferol (vitamin D3) 2,000 unit PO DAILY 08/31/20 08/31/20 Unknown [Vitamin D3] divalproex 250 mg PO BID 08/31/20 08/31/20 Unknown docusate sodium [DOK] 100 mg PO BID 08/31/20 08/31/20 Unknown escitalopram oxalate 10 mg PO DAILY 08/31/20 08/31/20 Unknown febuxostat 40 mg PO DAILY 08/31/20 08/31/20 Unknown hydroxyzine HCl 50 mg PO Q6H PRN 08/31/20 08/31/20 Unknown ibuprofen 400 mg PO BID 08/31/20 08/31/20 Unknown levothyroxine 88 mcg PO DAILY 08/31/20 08/31/20 Unknown magnesium hydroxide [Milk of 30 ml PO DAILY PRN 08/31/20 08/31/20 Unknown Magnesia] melatonin 3 mg PO HS 08/31/20 08/31/20 Unknown memantine 28 mg PO DAILY 08/31/20 08/31/20 Unknown mirtazapine 15 mg PO HS 08/31/20 08/31/20 Unknown quetiapine 100 mg PO TID 08/31/20 08/31/20 Unknown sennosides [senna] 8.6 mg PO Q2D 08/31/20 08/31/20 Unknown telmisartan 20 mg PO HS 08/31/20 08/31/20 Unknown Active Medications Generic Name Dose Route Start Last Admin Trade Name Freq PRN Reason Stop Dose Admin Acetaminophen 650 mg 08/31/20 19:46 08/31/20 21:07 Acetaminophen 325 Mg Tab PO 09/30/20 19:45 650 mg Q4H PRN Administration pain/fever Divalproex Sodium 250 mg 08/31/20 21:00 08/31/20 21:07 Divalproex Delay Release 250 Mg Tabec PO 09/30/20 20:59 250 mg BID SOFY Administration Docusate Sodium 100 mg 08/31/20 21:00 08/31/20 21:07 Docusate Sodium 100 Mg Cap PO 09/30/20 20:59 100 mg BID SOFY Administration Potassium Chloride/Dextrose/Sod Cl 20 meq in 1,000 mls @ 125 mls/hr 08/31/20 20:15 09/01/20 06:35 D5w And 1/2nss + 20meq Kcl IV 09/30/20 20:14 125 mls/hr .Q8H SOFY Administration Piperacillin Sod/Tazobactam 115 mls @ 28.75 mls/hr 08/31/20 23:00 09/01/20 06:35 Sod 3.375 gm/ Dextrose IV 09/10/20 22:59 28.8 mls/hr Q8H SOFY Administration Protocol Levothyroxine Sodium 88 mcg 09/01/20 06:30 09/01/20 06:35 Levothyroxine Sodium 88 Mcg Tablet PO 10/01/20 06:29 Not Given DAILYBB SOFY Melatonin 3 mg 08/31/20 21:00 08/31/20 21:07 Melatonin 3 Mg Tab PO 09/30/20 20:59 3 mg HS SOFY Administration Mirtazapine 15 mg 08/31/20 21:00 08/31/20 21:08 Mirtazapine Tab 15 Mg Tab PO 09/30/20 20:59 15 mg HS SOFY Administration Morphine Sulfate 2 mg 09/01/20 07:42 09/01/20 09:23 Morphine Sulfate 2 Mg/Ml Carp IV 09/15/20 07:41 2 mg Q2H PRN Administration Pain Quetiapine Fumarate 100 mg 08/31/20 21:00 08/31/20 21:08 Quetiapine Fumarate 100 Mg Tablet PO 09/30/20 20:59 100 mg TID SOFY Administration Sennosides 8.6 mg 08/31/20 21:00 08/31/20 21:08 Senna 8.6 Mg Tab PO 09/30/20 20:59 8.6 mg Q48H SOFY Administration NPO Date Last Intake of Fluids: 08/29/20 Time Last Intake of Fluids: 12:00 Date Last Intake of Solids: 08/29/20 Time Last Intake of Solids: 12:00 Past Medical History Medical History Frontotemporal dementia Hypertension Hypothyroidism Social History Smoking Status: Never smoker Hx Alcohol Use: No Hx Substance Use: No Physical Exam Vital Signs Last Vital Signs Temp 37.9 C H 09/01/20 10:06 Pulse 78 09/01/20 10:06 Resp 18 09/01/20 10:06 BP 140/87 09/01/20 10:06 Pulse Ox 98 09/01/20 10:06 Testing Laboratory Results 09/01/20 05:22 09/01/20 05:22 Electrocardiogram Date: 08/31/20 Findings: + NSR @ (97)
[2020-09-01] MEDS ORDERED: PHENYLEPHRINE 100MCG/ML 5ML SYR ONE (11:07)
[2020-09-01] MEDS ORDERED: GLYCOPYRROLATE 0.2 MG/ML VIAL ONE (11:08)
[2020-09-01] MEDS ORDERED: NEOSTIGMINE METHYLSULFATE 5 MG/5 ML SYR ONE (11:08)
--- NOTE | 2020-09-01 13:00 | Post Operative Brief Note ---
Immediate Post Op Note v1 Date of Surgery September 01, 2020 Pre & Post Diagnosis Operation Date: 09/01/20 08:10 Pre-Op Diagnosis: ACUTE CHOLECYSTITIS Post-Op Diagnosis: ACUTE CHOLECYSTITIS, GANGRENE GALLBLADDER I identified the patient and participated in the time-out.: Yes Procedure Operation Date: 09/01/20 08:10 Actual Procedures p Laparoscopic subtotal Cholecystectomy(Not Applicable) - Kentrell Leblanc MD Surgeon Kentrell Leblanc MD Certified [employer] Estimated Blood Loss 30 Findings Consistent with Post-Op Diagnosis SIGNIFICANT INFLAMMATION ON GALLBLADDER WALL WITH GANGRENE GALLBLADDER WITH FULL PUS Fluids 1200ML Specimens GALLBLADDER Drains Hernandez-Liriano Drain (10 flat ) Anesthesia Type General Complications none Disposition Accompanied Patient To Recovery: Yes Disposition: Recovery Room Overlapping Procedure I was immediately available: during the entire case.
--- NOTE | 2020-09-01 13:28 | Anesthesiology Progress Note ---
Date of Service September 01, 2020 Anesthesia Post Procedure Vital Signs Vital Signs: Temp Pulse Pulse Pulse Resp BP BP 09/01/20 13:20 86 21 114/80 09/01/20 13:11 36.0 C L 90 14 117/75 09/01/20 10:06 37.9 C H 78 18 140/87 09/01/20 09:30 36.3 C L 76 16 137/79 09/01/20 07:12 36.9 C 80 18 08/31/20 23:39 37.0 C 83 16 100/64 08/31/20 19:47 37.6 C H 88 18 08/31/20 19:13 90 18 150/80 H 08/31/20 18:05 93 H 20 155/81 H 08/31/20 18:00 92 H 17 08/31/20 17:30 92 H 22 08/31/20 17:14 96 H 17 08/31/20 17:12 98 H 15 08/31/20 16:30 86 16 128/86 08/31/20 16:12 08/31/20 16:11 98 H 22 08/31/20 16:06 88 24 128/80 08/31/20 15:52 36.8 C 81 17 127/77 BP Pulse Ox 09/01/20 13:20 100 09/01/20 13:11 92 09/01/20 10:06 98 09/01/20 09:30 95 09/01/20 07:12 150/91 H 95 08/31/20 23:39 94 08/31/20 19:47 145/90 H 96 08/31/20 19:13 95 08/31/20 18:05 08/31/20 18:00 08/31/20 17:30 08/31/20 17:14 98 08/31/20 17:12 92 08/31/20 16:30 08/31/20 16:12 97 08/31/20 16:11 96 08/31/20 16:06 98 08/31/20 15:52 98 Pain Intensity Abdomen: Pain Intensity: 0 Transfer of Care Handoff Completed per policy Notes Mental Status: see notes below Patient Amnestic to Procedure: Yes Nausea / Vomiting: adequately controlled Pain: adequately controlled Airway Patency, RR, SpO2: stable & adequate BP & HR: stable & adequate Hydration State: stable & adequate Anesthetic Complications: no major complications apparent and Pt Satisfied with anesthetic care Notes: The patient is stable at baseline. He was nonverbal and not following commands preoperatively.
[2020-09-01] MEDS ORDERED: MAGNESIUM HYDROXIDE SUSP 30 ML UDC PO PRN (14:33)
[2020-09-01] MEDS: QUEtiapine FUMARATE 100 MG TABLET PO SCH ×3 (15:46→21:29)
[2020-09-01] MEDS: DOCUSATE SODIUM 100 MG CAP PO SCH ×2 (15:49→21:29)
[2020-09-01] MEDS: CHOLECALCIFEROL 1,000 UNITS 25 MCG TAB PO SCH (16:04)
[2020-09-01] MEDS: DIVALPROEX SODIUM SPRINKLE 125 MG CAP PO SCH ×2 (17:13→22:22)
[2020-09-01] MEDS: FEBUXOSTAT 40 MG TABLET PO SCH (17:13)
[2020-09-01] MEDS: ESCITALOPRAM OXALATE 10 MG TAB PO SCH (17:14)
--- NOTE | 2020-09-01 18:20 | Operative Report (OR) ---
DATE OF OPERATION: 09/01/2020 PREOPERATIVE DIAGNOSES: Acute cholecystitis, cholelithiasis. POSTOPERATIVE DIAGNOSES: Acute cholecystitis, gangrenous gallbladder. OPERATIVE PROCEDURE: Laparoscopy, subtotal cholecystectomy, CÉSAR drainage x1. SURGEON: Kentrell Leblanc MD. ANESTHESIA: General. ESTIMATED BLOOD LOSS: About 30 mL. FINDINGS: Acute cholecystitis, significant inflammation on the gallbladder wall with gangrene gallbladder and gallbladder contained full pus. COMPLICATIONS: None. INDICATIONS FOR THE PROCEDURE: This is a 60-year-old gentleman who was admitted to the hospital for acute cholecystitis and I recommended to do laparoscopic cholecystectomy, possible open, possible cholangiogram. I did talk to the patient and family member about the benefit, the risk, alternate procedure. I indicated the risks may include but not limited to such as bleeding, infection, injury to common bile duct, bile leak, may need ERCP, myocardial infarction, DVT, even , sepsis, multiple organ failure. The patient and family understand. The patient and family signed informed consent and I answered all questions. DETAILS OF PROCEDURE: We brought the patient to the OR, put the patient in the supine position. The patient received SCD on bilateral legs to prevent DVT. Also, patient received 3.375 grams of Zosyn IV for prophylactic antibiotic. The patient received general anesthesia without difficulties. The abdomen was prepped and draped in routine sterile fashion. After timeout, I injected the local anesthesia by using 1% lidocaine mixed with 0.5% Marcaine just above the umbilicus. Then I made a small incision just above umbilicus, opened fascia and opened peritoneum under direct vision, put a Jonah trocar in, connected to CO2 to create pneumoperitoneum, flow rate at 6 liters per minute, pressure not more than 14 mmHg. Once we got a nice pneumoperitoneum, we put the camera in, looked around the abdomen, it showed normal finding on the liver. However, the gallbladder showed significant inflammation on the gallbladder with distention, confirmed the diagnosis of acute cholecystitis and also with gangrene gallbladder. Then, we put another two 5 mm trocars on the right upper quadrant, one 12 trocar on the epigastric area. Once all trocars in, we used the grasper to hold the gallbladder. Because of the significant distention, we had to use a large needle to decompress the gallbladder first. Once we decompressed, we found the patient had full pus inside the gallbladder and the gallbladder wall was gangrene gallbladder. We used the grasper to hold the base of gallbladder, put in the direction to the diaphragm, another grasper to hold the pouch of gallbladder. Because of the significant inflammation on the cystic duct area, it was difficult to identify. At this moment, we used the top-down technique and dissected the gallbladder from the liver bed nearly about 90%. Then we used the Endo-AKBAR staple for transection the gallbladder near the duct area and then we removed gallbladder through the catch bag. Then we reinserted Jonah trocar in, connected to CO2 to create pneumoperitoneum again. Then we used the harmonic to open the remainder of the gallbladder and suctioned all the flow out to make sure no stone left behind. Then we used Endoloop, closed the remainder of the opening of the gallbladder. We left about 1 cm piece of gallbladder near the cystic duct. We thought this is safe for the patient in order to avoid injury the common bile duct and also I used 2-0 Vicryl, sutured the opening of gallbladder figure of eight. Rechecked and no bile leak at this moment. So, we put a 10 mm CÉSAR drainage near the remainder of the gallbladder. Then, we rechecked the gallbladder on the liver side, no active bleeding. Then we removed the trocar under direct vision. No active bleeding from the trocar site. Pneumoperitoneum was released and we fixed the CÉSAR drainage on the skin by using 0 nylon and we closed the umbilical incision, fascial layer by using 0 Vicryl [id number] x2, closed subcutaneous layer by using 2-0 Vicryl interruptedly, closed skin by using 4-0 Vicryl continuous running, closed the epigastric area incision, fascial layer by using 0 Vicryl [id number] x2, closed subcutaneous layer by using 2-0 Vicryl interruptedly, closed skin by using 4-0 Vicryl interruptedly, closed another two 5 mm trocar site skin only by using 4-0 Vicryl. Then, we put the dressing on. The patient tolerated the procedure well. All instrument, needle and sponge count were correct x2 at the end of the case. The patient was transferred to recovery room in stable condition. The specimen was sent to pathology. After the procedure, I did talk to the patient and family member about the OR finding and the procedure we did, she understands and I answered all questions. I attest to the content of the Intraoperative Record and any orders documented therein. Any exceptions are noted below. FAB
[2020-09-01] MEDS: ACETAMINOPHEN 1,000 MG/100 ML VIAL IV PRN (18:48)
[2020-09-01] MEDS ORDERED: TELMISARTAN 20 MG TAB PO SCH (21:00)
[2020-09-01] MEDS: IBUPROFEN 200 MG TAB PO SCH (21:28)
[2020-09-01] MEDS: MEMANTINE HCL 10 MG TAB PO SCH (21:28)
[2020-09-01] MEDS: MELATONIN 3 MG TAB PO SCH (21:29)
[2020-09-01] MEDS: MIRTAZAPINE TAB 15 MG TAB PO SCH (21:30)
[2020-09-01] MEDS: DIVALPROEX DELAY RELEASE 250 MG TABEC PO SCH (21:38)
[2020-09-02] MEDS: MoRPHine SULFATE 2 MG/ML CARP IV PRN (03:08)
[2020-09-02] MEDS: D5W AND 1/2NSS + 20MEQ KCL 20 MEQ/1,000 ML BAG IV SCH ×2 (04:40→13:40)
[2020-09-02] MEDS: ACETAMINOPHEN 1,000 MG/100 ML VIAL IV PRN ×2 (04:40→22:52)
--- NOTE | 2020-09-02 05:02 | Electrocardiogram Report ---
Test Reason : Blood Pressure : / mmHG Vent. Rate : 097 BPM Atrial Rate : 097 BPM P-R Int : 132 ms QRS Dur : 084 ms QT Int : 302 ms P-R-T Axes : 052 049 020 degrees QTc Int : 383 ms Poor data quality, interpretation may be adversely affected Normal sinus rhythm Normal ECG No previous ECGs available Confirmed by Hugh Loja ([id number]) on 09/02/2020 5:02:25 AM Referred By: REFERRED SELF Confirmed By:Hugh Loja
[2020-09-02] MEDS: PIPERACILLIN/TAZOBACTAM 3.375 GM in DEXTROSE 5% 100 ML IV SCH ×3 (06:21→22:50)
[2020-09-02] MEDS: LEVOTHYROXINE SODIUM 88 MCG TABLET PO SCH (06:23)
[2020-09-02 06:49] LABS: Hematocrit (blood only) 32.6 % (42-52); Hemoglobin 10.7 g/dL (14.0-18.0); Mean Corpuscular Hgb Conc 32.8 g/dL (32-36); Mean Corpuscular Volume 94.5 fL (80-100); Mean Platelet Volume 9.8 fL (7.4-10.4); Platelet Count 355 K/uL (130-400); RDW Coefficient of Variation 13.6 % (11.5-14.5); RDW Standard Deviation 47.2 fL (36.4-46.3); Red Blood Count 3.45 M/uL (4.7-6.1); White Blood Count 6.94 K/uL (4.8-10.8)
[2020-09-02 07:42] LABS: Albumin Level 1.9 gm/dl (3.4-5.0); BUN Creatinine Ratio 19.4 (10-20); Calcium 8.1 mg/dl (8.5-10.1); Creatinine Clr Calc Pharmacy 72.6 ml/min; Est GFR (African American) 90.9; Est GFR (Non-African American) 78.4; Potassium 3.8 mmol/L (3.5-5.1)
[2020-09-02 07:49] LABS: Albumin Globulin Ratio 0.5 (0.9-2); Bilirubin,Total 0.6 mg/dl (0.2-1); Globulin 3.8 gm/dl (2.5-4.0); Total Protein 5.7 gm/dl (6.4-8.2)
[2020-09-02] MEDS: ESCITALOPRAM OXALATE 10 MG TAB PO SCH (09:45)
[2020-09-02] MEDS: CHOLECALCIFEROL 1,000 UNITS 25 MCG TAB PO SCH (09:45)
[2020-09-02] MEDS: QUEtiapine FUMARATE 100 MG TABLET PO SCH ×2 (09:45→14:45)
[2020-09-02] MEDS: IBUPROFEN 200 MG TAB PO SCH (09:45)
[2020-09-02] MEDS: MEMANTINE HCL 10 MG TAB PO SCH ×2 (09:46→22:43)
[2020-09-02] MEDS: DIVALPROEX SODIUM SPRINKLE 125 MG CAP PO SCH ×2 (09:46→22:43)
[2020-09-02] MEDS: VITAMIN B COMPLEX TAB PO SCH (09:46)
[2020-09-02] MEDS: DOCUSATE SODIUM 100 MG CAP PO SCH ×2 (09:47→22:42)
[2020-09-02] MEDS: FEBUXOSTAT 40 MG TABLET PO SCH (09:47)
[2020-09-02] MEDS: ADVANCED PROBIOTIC 1250 MG CAPSULE PO SCH ×2 (11:17→12:30)
--- NOTE | 2020-09-02 13:05 | Surgery Progress Note ---
Date of Service F/U S/P laparoscopic subtotal cholecystectomy for gangrene gallbladder, POD 1 doing fine, tolerated clear diet, no nausea, no vomiting, no fever, CÉSAR 70ml September 02, 2020 Assessment & Plan (1) Acute cholecystitis: pt is 60 year-old male who presents to Er with 3 days history abdominal pain, IMP: acute cholecystitis, Plan, I recommend to do laparoscopic cholecystectomy, possible open or cholangiogram, D/w benefits, risk sand alternatives of the surgery, the risks - infection, bleeding, injury CBD, pt's family member understood, she agrees with the surgery, I answered all questions, NPO after MN 09/02/2020 1:07PM pod 1 doing fine regular diet, continue iv antibiotic, phone representative surgeon cover this weekend, thanks, (2) Abdominal pain: Admission and Anticipated Discharge Date Admission Date: August 31, 2020 Review of Systems Constitutional: as per Subjective / HPI dementia Eyes: as per Subjective / HPI Ear, Nose, Mouth, Throat: as per Subjective / HPI Respiratory: as per Subjective / HPI Cardiovascular: as per Subjective / HPI Additional Comments: HTN Gastrointestinal: as per Subjective / HPI abdominal pain Genitourinary: + as per Subjective / HPI Musculoskeletal: as per Subjective / HPI Integumentary: as per Subjective / HPI Neurologic: as per Subjective / HPI Psychiatric: as per Subjective / HPI Endocrine: as per Subjective / HPI hypothyroidism Physical Exam Constitutional: WD/WN, vitals as above well developed and well nourished Eyes: PERRL, conjunctivae normal, anicteric sclerae ENMT: external ear and nose normal, oropharynx normal Neck: trachea midline, no thyromegaly Respiratory: normal respiratory effort, lungs clear to auscultation Cardiovascular: RRR, no murmur, no edema Rate/Rhythm: regular rate and regular rhythm Gastrointestinal (Abdomen): Percussion/Palpation: + abdomen tender (mild tenderness at incision site, all incisions intact, no redness, ) and abdomen soft Musculoskeletal: no cyanosis or clubbing, extremities motor strength 5/5 Skin: no rashes, warm and dry Neurologic: awake Psychiatric: Orientation: + guarded Results & Data ([facility]) Vital Signs (Past 12 Hours) Vital Signs Temp Pulse Resp BP Pulse Ox 09/02/20 12:00 37.1 C 82 16 121/82 95 09/02/20 07:34 37.1 C 79 18 128/77 95 09/02/20 03:29 37.1 C 93 H 18 116/79 90 09/02/20 02:20 82 14 94 09/02/20 01:08 96 Laboratory Results Abnormal lab results 09/02/20 09/02/20 Range/Units 06:12 06:12 RBC 3.45 L (4.7-6.1) M/uL Hgb 10.7 L (14.0-18.0) g/dL Hct 32.6 L (42-52) % RDW Std Deviation 47.2 H (36.4-46.3) fL Chloride 111 H (98-107) mmol/L BUN 20 H (7-18) mg/dl Glucose 134 H (70-99) mg/dl Calcium 8.1 L (8.5-10.1) mg/dl AST 42 H (15-37) U/L Alkaline Phosphatase 178 H (45-117) U/L Total Protein 5.7 L D (6.4-8.2) gm/dl Albumin 1.9 L (3.4-5.0) gm/dl Albumin/Globulin Ratio 0.5 L (0.9-2) (1) Abdominal pain Abdominal location: generalized Qualified Code(s): R10.84 - Generalized abdominal pain
--- NOTE | 2020-09-02 13:06 | Hospitalist Progress Note ---
Date of Service September 02, 2020 Assessment & Plan (1) Acute gangrenous cholecystitis: POD #1 s/p subtotal lap lucho. Gall bladder was severely gangrenous and diseased at time of surgery. Intra-op culture growing GNR -- continue IV zosyn. Patient's LFTs fernando overnight - given the severity of his gall bladder disease I spoke with Dr Leblanc. We both agreed GI consultation was needed to exclude CBD stone. [facility] contacted - Dr Monk performed ERCP/EUS. ERCP revealed choledocholithiasis. s/p extraction of stone and stent placement. No purulence noted per his op note. Continue NPO status, IV zosyn, IV fluids. Appreciate gen surg and GI consultations/assistance. (2) Sepsis: 2nd gangrenous gall bladder. (3) Choledocholithiasis: as noted on ERCP today. see above. LFTs in am. (4) Acute metabolic encephalopathy: suspect 2nd to severe sepsis, recent anesthesia, and acute respiratory acidosis. continue IV antibiotics and supportive care. HOLD melatonin, seroquel and remeron in the face of his severe sedation. BIPAP for mild respiratory acidosis. of note - lactate, ammonia levels both normal. check TSH in am. (5) Acute respiratory failure with hypercapnia: 2nd to severe sedation in face of sepsis, recent surgery, etc. upon arrival back from ERCP BIPAP to be placed and would leave on for the rem ainder of the night. recheck VBG 1-2 hours after BIPAP is initiated. (6) Acute kidney injury: 2nd to sepsis. BMP in am. Cr is improved with IV fluids. (7) Hypertension: hold ARB (8) Hypothyroidism: check TSH am cont synthroid (9) Frontotemporal dementia: I suspect that his depakote, seroquel, etc is for behavior related to his dementia. resides in [address]. depakote level at admission was 17. holding other agents due to severe sedation/lethargy as noted above. DNR status. (10) Esophagitis: as seen on ERCP today. start IV PPI daily. Dr Monk recommends oral PPI x 1month after d/c. (11) DVT prophylaxis: holding chemical means today due to ERCP can likely start SC heparin or lovenox tomorrow updated twice today remains quite ill Admission and Anticipated Discharge Date Admission Date: August 31, 2020 Subjective during the visit pt's was at bedside. she reports she had been present for several hours and despite such he has been sleeping heavily/difficult to arouse. she reports he was also very lethargic yesterday evening s/p lap lucho. I performed a sternal rub and he briefly opened eyes then quickly returned to sleep. she reports it is not unusual for him to become quite delirious in the hospital setting but his is quite severe for him. he has known frontotemporal dementia. Review of Systems Review of Systems: Unobtainable due to reduced consciousness Physical Exam Constitutional: + altered mental status; no acute distress ENMT: Mouth: + dry oral mucous membranes Respiratory: normal respiratory effort, lungs clear to auscultation Auscultation: + diminished lung sounds (Bases ) Cardiovascular: Rate/Rhythm: regular rate and regular rhythm Heart Sounds: normal S1 and normal S2; no murmur Vessels: posterior tibial pulses present and dorsalis pedis pulses present; no JVD Extremities: no edema Gastrointestinal (Abdomen): Inspection/Auscultation: + abdomen distended and + hypoactive bowel sounds Percussion/Palpation: + abdomen tender; no hepatosplenomegaly drain in place - serosanguinous fluid present; no bile Skin: no jaundice Psychiatric: Orientation: + not alert and + not oriented x 3 Results & Data Results & Data ([facility]) Vital Signs (Past 12 Hours) Vital Signs Temp Pulse Resp BP Pulse Ox 09/02/20 12:00 37.1 C 82 16 121/82 95 09/02/20 07:34 37.1 C 79 18 128/77 95 09/02/20 03:29 37.1 C 93 H 18 116/79 90 09/02/20 02:20 82 14 94 09/02/20 01:08 96 Laboratory Results Laboratory Results - last 24 hr 09/02/20 09/02/20 09/02/20 06:12 06:12 13:27 WBC 6.94 RBC 3.45 L Hgb 10.7 L Hct 32.6 L MCV 94.5 MCH 31.0 MCHC 32.8 RDW Std Deviation 47.2 H RDW Coeff of Stella 13.6 Plt Count 355 MPV 9.8 VBG pH VBG pCO2 VBG pO2 VBG HCO3 VBG O2 Saturation VBG Base Excess Barometric Pressure Sodium 142 Potassium 3.8 Chloride 111 H Carbon Dioxide 26 Anion Gap 5.0 BUN 20 H Creatinine 1.02 Est Cr Clr Drug Dosing 72.6 Est GFR ( Amer) 90.9 Est GFR (Non-Af Amer) 78.4 BUN/Creatinine Ratio 19.4 Glucose 134 H Lactate 2.0 Calcium 8.1 L Total Bilirubin 0.6 AST 42 H ALT 73 Alkaline Phosphatase 178 H Ammonia Total Protein 5.7 L D Albumin 1.9 L Globulin 3.8 Albumin/Globulin Ratio 0.5 L 09/02/20 09/02/20 09/02/20 13:27 13:27 22:26 WBC RBC Hgb Hct MCV MCH MCHC RDW Std Deviation RDW Coeff of Stella Plt Count MPV VBG pH 7.33 L 7.36 VBG pCO2 51 H 45 VBG pO2 31 36 VBG HCO3 26 25 VBG O2 Saturation < 60.0 64.0 VBG Base Excess -0.4 -0.6 Barometric Pressure 734.9 741.9 Sodium Potassium Chloride Carbon Dioxide Anion Gap BUN Creatinine Est Cr Clr Drug Dosing Est GFR ( Amer) Est GFR (Non-Af Amer) BUN/Creatinine Ratio Glucose Lactate Calcium Total Bilirubin AST ALT Alkaline Phosphatase Ammonia 29.3 Total Protein Albumin Globulin Albumin/Globulin Ratio PG Care Time/CCT Total # of Minutes Spent Total Time Spent with Patient: Total time spent is greater than 50% in coordination of care (as documented) at patient's floor/unit and/or counseling patient: Coding Level of Care Code 33176 Subseq Hosp Care Lvl 3 Diagnoses Acute gangrenous cholecystitis K81.0 Sepsis A41.9 Choledocholithiasis K80.50 Acute metabolic encephalopathy G93.41 Acute respiratory failure with hypercapnia J96.02 Acute kidney injury N17.9 Hypertension I10 Hypertension type: unspecified Hypothyroidism E03.9 Hypothyroidism type: unspecified Frontotemporal dementia G31.09; F02.80 Esophagitis K20.90 DVT prophylaxis Z29.9 (1) Hypertension Hypertension type: unspecified Qualified Code(s): I10 - Essential (primary) hypertension (2) Hypothyroidism Hypothyroidism type: unspecified Qualified Code(s): E03.9 - Hypothyroidism, unspecified
[2020-09-02 13:37] LABS: Base Excess VBG -0.4 mEq/L; HCO3 VBG 26 mmol/L; PCO2 VBG 51 mmHg (38-50); PO2 VBG 31 mmHg; pH VBG 7.33 (7.36-7.41)
[2020-09-02 13:40] LABS: Oxygen Saturation VBG < 60.0 %
[2020-09-02] MEDS ORDERED: INDOMETHACIN 50 MG SUPP PR ONE ×2 (13:50→19:43)
[2020-09-02] MEDS ORDERED: IOVERSOL 50ml IV ONE ×2 (14:18→18:38)
--- NOTE | 2020-09-02 14:46 | Gastrointestinal Consultation ---
Date of Consultation September 02, 2020 Assessment & Plan (1) Elevated LFTs: Pt is a 60 y/o male who is POD #1 s/p subtotal cholecystectomy, seen for rising LFTs concerning for possible biliary stone. - Keep NPO, IVF hydration - Will plan for EUS/ERCP in OR by Dr. Monk; Pt has frontotemporal dementia, non verbal. (Pat) will need to give consent - Trend LFTs Supervising Physician Co-Signing Physician Notes I performed a history and physical examination of the patient today, including specifically on physical exam - soft abdomen. I have discussed the patient's management with the advanced practitioner. Please refer to the nurse practitioner's note for the documented findings and plan of care. EUS/ERCP today. History of Present Illness Reason for Consultation: Elevated LFTs, ? CBD stone Requesting Physician: Dr. Vin Chery Attending Physician: Dr. Franki Monk History of Present Illness Pt is a 60 y/o male seen today for elevated LFTs, POD #1 after subtotal ch olecystectomy for gangrenous gallbladder. He had hx of frontotemporal dementia, non verbal for over a year. (Pat) gives history. Pt currently sleeping in bed, grimaces when abdomen palpated. Noted CÉSAR drain to RUQ abd area w serosangenous fluid. Surgical dressings CDI. Chart reviewed - he is hemodynamically stable. LFTs: Tbili 0.6, AST 42, ALT 73, Alk phose 178. CT abd/pelvis 08/31: 1. Diffusely thickened and distended gallbladder with surrounding pericholecystic inflammatory change and fluid. This is highly suspicious for acute cholecystitis. Surgical consultation recommended. 2. A few mildly enlarged periportal lymph nodes which are likely reactive to the suspected acute cholecystitis. 3. No bowel wall thickening or obstruction. 4. Normal appendix. 5. Colonic diverticulosis. 6. Trace bilateral pleural effusions. 7. Right basilar densities favor atelectasis. Allergies Allergy/AdvReac Type Severity Reaction Status Date / Time No Known Allergies Allergy Verified 08/31/20 16:52 Home Medications Home Medications Medication Instructions Recorded Confirmed Type B complex-vitamin C-folic acid 1 tab PO DAILY 08/31/20 08/31/20 History [Folbee Plus] acetaminophen [Tylenol Extended 1,200 mg PO TID PRN MDD 5 08/31/20 08/31/20 History Release] TABLETS/24 HOURS acetaminophen [Tylenol Extended 650 mg PO TID PRN MDD 5 TABLETS/24 08/31/20 08/31/20 History Release] HOURS cholecalciferol (vitamin D3) 2,000 unit PO DAILY 08/31/20 08/31/20 History [Vitamin D3] divalproex 250 mg PO BID 08/31/20 08/31/20 History docusate sodium [DOK] 100 mg PO BID 08/31/20 08/31/20 History escitalopram oxalate 10 mg PO DAILY 08/31/20 08/31/20 History febuxostat 40 mg PO DAILY 08/31/20 08/31/20 History hydroxyzine HCl 50 mg PO Q6H PRN 08/31/20 08/31/20 History ibuprofen 400 mg PO BID 08/31/20 08/31/20 History levothyroxine 88 mcg PO DAILY 08/31/20 08/31/20 History magnesium hydroxide [Milk of 30 ml PO DAILY PRN 08/31/20 08/31/20 History Magnesia] melatonin 3 mg PO HS 08/31/20 08/31/20 History memantine 28 mg PO DAILY 08/31/20 08/31/20 History mirtazapine 15 mg PO HS 08/31/20 08/31/20 History quetiapine 100 mg PO TID 08/31/20 08/31/20 History sennosides [senna] 8.6 mg PO Q2D 08/31/20 08/31/20 History telmisartan 20 mg PO HS 08/31/20 08/31/20 History Patient History Medical History Frontotemporal dementia Hypertension Hypothyroidism Social History Smoking Status: Never smoker Hx Alcohol Use: No Hx Substance Use: No Preferred Language: Occitan Communication Ability: Unable E [employer] Required: No Beliefs That Will Affect Care: None marital status: Current Living Situation: [facility] Other Information That Helps Us Care for You: No Feels Safe at Home: Yes Safety Concerns: Feels Safe At This Time Assistive Devices: None Review of Systems Review of Systems: Unobtainable due to cognitive status Physical Exam Constitutional: WD/WN, vitals as above well groomed and comfortable Eyes: PERRL, conjunctivae normal, anicteric sclerae ENMT: external ear and nose normal, oropharynx normal Respiratory: normal respiratory effort, lungs clear to auscultation Cardiovascular: RRR, no murmur, no edema Gastrointestinal (Abdomen): Surgical dressing CDI, CÉSAR drain w serosangenous fluid, pt grimaces when abd palpated Skin: no rashes, warm and dry Psychiatric: Non verbal (frontotemporal dementia) Lymphatic: no lymphedema Results & Data ([facility]) Vital Signs (Past 12 Hours) Vital Signs Temp Pulse Resp BP Pulse Ox 09/02/20 12:00 37.1 C 82 16 121/82 95 09/02/20 07:34 37.1 C 79 18 128/77 95 09/02/20 03:29 37.1 C 93 H 18 116/79 90
[2020-09-02] MEDS ORDERED: SODIUM CHLORIDE 0.9% 1000ML 500 ML IV ONE (15:10)
[2020-09-02] MEDS ORDERED: LABETALOL HCL IV 5 MG/ML 20ML IV PRN (18:00)
[2020-09-02] MEDS ORDERED: ONDANSETRON INJ 2 MG/ML 2 ML VIAL IV PRN (18:00)
[2020-09-02] MEDS ORDERED: PHENYLEPHRINE 100MCG/ML 5ML SYR IV PRN (18:00)
[2020-09-02] MEDS ORDERED: fentaNYL citrate 100 MCG/2 ML VIAL IV PRN (18:00)
[2020-09-02] MEDS ORDERED: ATROPINE SULFATE 0.1 MG/ML 10ML SYR IV PRN (18:00)
[2020-09-02] MEDS ORDERED: ePHEDrine sulfate 50 MG/ML AMP IV PRN (18:00)
--- NOTE | 2020-09-02 18:14 | Anesthesiology Consultation ---
Date of Service September 02, 2020 Covid 19 negative from 08/31/20. The patient is familiar to me as I took care of him yesterday for his laparoscopic cholecystectomy. He has significant dementia. Assessment & Plan (1) Encounter for pre-operative examination: Chart Review Chart Review: Acceptable Risk for Surgery and Patient NOT seen in Pre Admission Testing Consults Requested none medicine is following the patient History Surgery Operation Date: 09/01/20 08:10 Proposed Procedures p Laparoscopic Cholecystectomy - Kentrell Leblanc MD Operation Date: 09/02/20 16:15 Proposed Procedures p Endoscopic Retrograde Cholangiopancreato - Franki Monk MD s Endoscopic Ultrasonography Upper - Franki Monk MD Height/Weight Height: 5 ft 8 in Weight: 72.1 kg Allergies Allergy/AdvReac Type Severity Reaction Status Date / Time No Known Allergies Allergy Verified 08/31/20 16:52 Medications Home Medications Medication Instructions Recorded Confirmed Last Taken B complex-vitamin C-folic acid 1 tab PO DAILY 08/31/20 08/31/20 Unknown [Folbee Plus] acetaminophen [Tylenol Extended 1,200 mg PO TID PRN MDD 5 08/31/20 08/31/20 Unknown Release] TABLETS/24 HOURS acetaminophen [Tylenol Extended 650 mg PO TID PRN MDD 5 TABLETS/24 08/31/20 08/31/20 Unknown Release] HOURS cholecalciferol (vitamin D3) 2,000 unit PO DAILY 08/31/20 08/31/20 Unknown [Vitamin D3] divalproex 250 mg PO BID 08/31/20 08/31/20 Unknown docusate sodium [DOK] 100 mg PO BID 08/31/20 08/31/20 Unknown escitalopram oxalate 10 mg PO DAILY 08/31/20 08/31/20 Unknown febuxostat 40 mg PO DAILY 08/31/20 08/31/20 Unknown hydroxyzine HCl 50 mg PO Q6H PRN 08/31/20 08/31/20 Unknown ibuprofen 400 mg PO BID 08/31/20 08/31/20 Unknown levothyroxine 88 mcg PO DAILY 08/31/20 08/31/20 Unknown magnesium hydroxide [Milk of 30 ml PO DAILY PRN 08/31/20 08/31/20 Unknown Magnesia] melatonin 3 mg PO HS 08/31/20 08/31/20 Unknown memantine 28 mg PO DAILY 08/31/20 08/31/20 Unknown mirtazapine 15 mg PO HS 08/31/20 08/31/20 Unknown quetiapine 100 mg PO TID 08/31/20 08/31/20 Unknown sennosides [senna] 8.6 mg PO Q2D 08/31/20 08/31/20 Unknown telmisartan 20 mg PO HS 08/31/20 08/31/20 Unknown Active Medications Generic Name Dose Route Start Last Admin Trade Name Freq PRN Reason Stop Dose Admin Acetaminophen 650 mg 08/31/20 19:46 08/31/20 21:07 Acetaminophen 325 Mg Tab PO 09/30/20 19:45 650 mg Q4H PRN Administration pain/fever Divalproex Sodium 250 mg 09/01/20 16:00 09/02/20 09:46 Divalproex Sodium Sprinkle 125 Mg Cap PO 10/01/20 15:59 250 mg BID SOFY Administration Docusate Sodium 100 mg 08/31/20 21:00 09/02/20 09:47 Docusate Sodium 100 Mg Cap PO 09/30/20 20:59 100 mg BID SOFY Administration Escitalopram Oxalate 10 mg 09/01/20 09:00 09/02/20 09:45 Escitalopram Oxalate 10 Mg Tab PO 10/01/20 08:59 10 mg DAILY SOFY Administration Febuxostat 40 mg 09/01/20 09:00 09/02/20 09:47 Febuxostat 40 Mg Tablet PO 10/01/20 08:59 40 mg DAILY SOFY Administration Potassium Chloride/Dextrose/Sod Cl 20 meq in 1,000 mls @ 125 mls/hr 08/31/20 20:15 09/02/20 18:04 D5w And 1/2nss + 20meq Kcl IV 09/30/20 20:14 0 mls/hr .Q8H SOFY Infusion Acetaminophen 1,000 mg in 100 mls @ 400 mls/hr 08/31/20 19:46 09/02/20 05:09 Ofirmev IV 09/03/20 19:45 Infused Q8H PRN Infusion Pain or fever Piperacillin Sod/Tazobactam 115 mls @ 28.75 mls/hr 08/31/20 23:00 09/02/20 14:49 Sod 3.375 gm/ Dextrose IV 09/10/20 22:59 28.8 mls/hr Q8H SOFY Administration Protocol Ibuprofen 400 mg 09/01/20 21:00 09/02/20 09:45 Ibuprofen 200 Mg Tab PO 10/01/20 20:59 400 mg BID SOFY Administration Lactobacillus Acidoph/Casei/Rhamnos 2 cap 09/02/20 10:00 09/02/20 12:30 Advanced Probiotic 1250 Mg Capsule PO 10/02/20 09:59 2 cap DAILY SOFY Administration Levothyroxine Sodium 88 mcg 09/01/20 06:30 09/02/20 06:23 Levothyroxine Sodium 88 Mcg Tablet PO 10/01/20 06:29 88 mcg DAILYBB SOFY Administration Melatonin 3 mg 08/31/20 21:00 09/01/20 21:29 Melatonin 3 Mg Tab PO 09/30/20 20:59 3 mg HS SOFY Administration Memantine 10 mg 09/01/20 21:00 09/02/20 09:46 Memantine Hcl 10 Mg Tab PO 10/01/20 20:59 10 mg BID SOFY Administration Mirtazapine 15 mg 08/31/20 21:00 09/01/20 21:30 Mirtazapine Tab 15 Mg Tab PO 09/30/20 20:59 15 mg HS SOFY Administration Morphine Sulfate 2 mg 09/01/20 07:42 09/02/20 03:08 Morphine Sulfate 2 Mg/Ml Carp IV 09/15/20 07:41 2 mg Q2H PRN Administration Pain Quetiapine Fumarate 100 mg 08/31/20 21:00 09/02/20 14:45 Quetiapine Fumarate 100 Mg Tablet PO 09/30/20 20:59 Not Given TID SOFY Sennosides 8.6 mg 08/31/20 21:00 08/31/20 21:08 Senna 8.6 Mg Tab PO 09/30/20 20:59 8.6 mg Q48H SOFY Administration Telmisartan 20 mg 09/01/20 21:00 09/01/20 21:28 Telmisartan 20 Mg Tab PO 10/01/20 20:59 20 mg HS SOFY Administration Vitamin B Complex 1 tab 09/02/20 09:00 09/02/20 09:46 Vitamin B Complex Tab PO 10/02/20 08:59 1 tab DAILY SOFY Administration Vitamin D 2,000 units 09/01/20 09:00 09/02/20 09:45 Cholecalciferol 1,000 Units 25 Mcg Tab PO 10/01/20 08:59 2,000 units DAILY SOFY Administration NPO Date Last Intake of Fluids: 09/02/20 Time Last Intake of Fluids: 12:00 Date Last Intake of Solids: 09/02/20 Time Last Intake of Solids: 12:00 Past Medical History Medical History Frontotemporal dementia Hypertension Hypothyroidism Social History Smoking Status: Never smoker Hx Alcohol Use: No Hx Substance Use: No Physical Exam Vital Signs Last Vital Signs Temp 36.9 C 09/02/20 15:33 Pulse 82 09/02/20 15:33 Resp 18 09/02/20 15:33 BP 124/76 09/02/20 15:33 Pulse Ox 97 09/02/20 15:33 Testing Laboratory Results 09/02/20 06:12 09/02/20 06:12 09/01/20 11:32 Gram Stain - Final Gallbladder Fluid Aerobic and Anaerobic Culture - Preliminary Gram negative bacilli Electrocardiogram Date: 08/31/20 Findings: + NSR @ (60)
[2020-09-02] MEDS ORDERED: PROPOFOL IV EMULSION 10 MG/ML 20 ML VIAL IV ONE (18:46)
[2020-09-02] MEDS ORDERED: fentaNYL citrate 100 MCG/2 ML VIAL ONE (18:46)
[2020-09-02] MEDS ORDERED: ONDANSETRON INJ 2 MG/ML 2 ML VIAL ONE (18:46)
[2020-09-02] MEDS ORDERED: SUCCINYLCHOLINE CHLORIDE 20 MG/ML 10 ML VIAL IV ONE (18:46)
--- NOTE | 2020-09-02 19:52 | Operative Report ---
Post Operative Report Pre & Post Diagnosis Operation Date: 09/01/20 08:10 Pre-Op Diagnosis: ACUTE CHOLECYSTITIS Post-Op Diagnosis: ACUTE CHOLECYSTITIS Operation Date: 09/02/20 16:15 Pre-Op Diagnosis: Suspected Bile Leak Post-Op Diagnosis: Suspected Bile Leak I identified the patient and participated in the time-out.: Yes Procedure Operation Date: 09/01/20 08:10 Actual Procedures p Laparoscopic subtotal Cholecystectomy(Not Applicable) - Kentrell Leblanc MD Operation Date: 09/02/20 16:15 Actual Procedures p Endoscopic Retrograde Cholangiopancreatogram(Not Applicable) - Franki Monk MD s Endoscopic Ultrasonography Upper; Esophagogastroduodenoscopy(Not Applicable) - Franki Monk MD Surgeon Franki Monk MD 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 Any exceptions are noted below.
--- NOTE | 2020-09-02 20:06 | GI REPORT ---
Patient Name: Ki Lozano Procedure Date: 09/02/2020 7:10 PM Date of : 1960 Admit Type: Inpatient Age: 60 Gender: Male Attending MD: Franki Monk MD Procedure: Upper GI endoscopy Providers: Franki Monk MD Referring MD: Vin Harding Indications: Abnormal CT of the GI tract Medicines: General Anesthesia Complications: No immediate complications. Estimated Blood Loss: Estimated blood loss: none. Procedure: Pre-Anesthesia Assessment: - Prior to the procedure, a History and Physical was performed, and patient medications, allergies and sensitivities were reviewed. The patient's tolerance of previous anesthesia was reviewed. - The risks and benefits of the procedure and the sedation options and risks were discussed with the patient. All questions were answered and informed consent was obtained. - Patient identification and proposed procedure were verified prior to the procedure by the physician and the nurse. The procedure was verified in the procedure room. - Pre-procedure physical examination revealed no contraindications to sedation. After obtaining informed consent, the endoscope was passed under direct vision. Throughout the procedure, the patient's blood pressure, pulse, and oxygen saturations were monitored continuously. The Endoscope was introduced through the mouth, and advanced to the second part of duodenum. The upper GI endoscopy was accomplished without difficulty. The patient tolerated the procedure well. Findings: Esophagitis with no bleeding was found in the lower third of the esophagus. The entire examined stomach was normal. The duodenal bulb and second portion of the duodenum were normal. Impression: - Reflux esophagitis. - Normal stomach. - Normal duodenal bulb and second portion of the duodenum. - No specimens collected. Recommendation: - Perform an upper endoscopic ultrasound (UEUS) today. - PO PPI for 4 weeks. Franki Monk MD 09/02/2020 8:05:49 PM This report has been signed electronically. Note Initiated On: 09/02/2020 7:10 PM Number of Addenda: 0 I attest to the content of the Intraoperative Record and orders documented therein, exceptions below {[id number]}
--- NOTE | 2020-09-02 20:08 | Fluoroscopy Report ---
[place] ERCP biliary ductal HISTORY: 60 years-old Male ERCP COMPARISON: CT abdomen and pelvis 08/31/2020 TECHNIQUE: 8 spot fluoroscopic images of the right upper quadrant abdomen were obtained utilizing 45. 5 seconds fluoroscopy time FINDINGS: Surgical drainage catheter projects over the abdominal right upper quadrant. Endoscope is noted withi n the duodenum. Cannulation of the common bile duct with retrograde injection of contrast into the co mmon bile duct. Opacified cystic duct remnant with cholecystectomy. Balloon sweep of the common bile duct. There is no intrahepatic or extrahepatic biliary ductal dilation or definite choledocholithiasi s. Subsequent images demonstrate placement of a common bile duct stent which appears in satisfactory positioning. IMPRESSION: Fluoroscopic assistance as above. Please see operative report for further details. ACT 112: Negative or not required by law. The above report was generated using voice recognition software. It may contain grammatical, syntax o r spelling errors. Electronically signed by: Jay Leyva M.D. 09/02/2020 8:07 PM
--- NOTE | 2020-09-02 20:12 | GI REPORT ---
Patient Name: Ki Lozano Procedure Date: 09/02/2020 7:15 PM Date of : 1960 Admit Type: Inpatient Age: 60 Gender: Male Attending MD: Franki Monk MD Procedure: Upper EUS Providers: Franki Monk MD Referring MD: Vin Harding Indications: Elevated liver enzymes, Suspected choledocholithiasis Medicines: General Anesthesia Complications: No immediate complications. Estimated Blood Loss: Estimated blood loss: none. Procedure: Pre-Anesthesia Assessment: - Prior to the procedure, a History and Physical was performed, and patient medications, allergies and sensitivities were reviewed. The patient's tolerance of previous anesthesia was reviewed. - The risks and benefits of the procedure and the sedation options and risks were discussed with the patient. All questions were answered and informed consent was obtained. - Patient identification and proposed procedure were verified prior to the procedure by the physician and the nurse. The procedure was verified in the procedure room. - Pre-procedure physical examination revealed no contraindications to sedation. After obtaining informed consent, the endoscope was passed under direct vision. Throughout the procedure, the patient's blood pressure, pulse, and oxygen saturations were monitored continuously. The Endosonoscope was introduced through the mouth, and advanced to the second part of duodenum. The upper EUS was accomplished without difficulty. The patient tolerated the procedure well. Findings: ENDOSCOPIC FINDING: : A medium diverticulum was found in the area of the papilla. ENDOSONOGRAPHIC FINDING: : There was no sign of significant endosonographic abnormality in the ampulla. No masses were identified. One stone was visualized endosonographically in the common bile duct. It was hyperechoic and characterized by shadowing. CBD diameter was 6 mm. Evidence of a subtotal cholecystectomy was identified endosonographically. There was no sign of significant endosonographic abnormality in the visualized portion of the liver. There was no sign of significant endosonographic abnormality in the entire pancreas. The pancreatic duct measured up to 2 mm in diameter. There was no sign of significant endosonographic abnormality involving the celiac trunk. Many enlarged lymph nodes were visualized in the celiac region (level 20), peripancreatic region and su hepatis region. The largest measured 22 mm in maximal cross-sectional diameter. The nodes were triangular, hypoechoic and heterogenous and had well defined margins. Impression: - Duodenal diverticulum. - There was no sign of significant pathology in the ampulla. - One stone was visualized endosonographically in the common bile duct. - Evidence of partial cholecystectomy with remnant gallbladder. - There was no evidence of significant pathology in the visualized portion of the liver. - There was no sign of significant pathology in the entire pancreas. - The celiac trunk was endosonographically normal. - Many enlarged lymph nodes were visualized in the celiac region (level 20), peripancreatic region and su hepatis region. Likely reative inflammatory nodes. - No specimens collected. Recommendation: - Perform an ERCP today. - Perform CT scan (computed tomography) of the abdomen with contrast in 5 weeks for follow up on the lymph nodes. Franki Monk MD 09/02/2020 8:11:56 PM This report has been signed electronically. Note Initiated On: 09/02/2020 7:15 PM Number of Addenda: 0 I attest to the content of the Intraoperative Record and orders documented therein, exceptions below {[id number]}
--- NOTE | 2020-09-02 20:18 | GI REPORT ---
Patient Name: Ki Lozano Procedure Date: 09/02/2020 7:28 PM Date of : 1960 Admit Type: Inpatient Age: 60 Gender: Male Attending MD: Franki Monk MD Procedure: ERCP Providers: Franki Monk MD Referring MD: Kentrell Ag . Md Indications: For therapy of bile duct stone(s) Medicines: General Anesthesia Complications: No immediate complications. Estimated Blood Loss: Estimated blood loss: none. Procedure: Pre-Anesthesia Assessment: - Prior to the procedure, a History and Physical was performed, and patient medications, allergies and sensitivities were reviewed. The patient's tolerance of previous anesthesia was reviewed. - The risks and benefits of the procedure and the sedation options and risks were discussed with the patient. All questions were answered and informed consent was obtained. - Patient identification and proposed procedure were verified prior to the procedure by the physician and the nurse. The procedure was verified in the procedure room. - Pre-procedure physical examination revealed no contraindications to sedation. After obtaining informed consent, the scope was passed under direct vision. Throughout the procedure, the patient's blood pressure, pulse, and oxygen saturations were monitored continuously. The Scope was introduced through the mouth, and advanced to the duodenum and used to inject contrast into the bile duct. The ERCP was accomplished without difficulty. The patient tolerated the procedure well. Findings: A veneer redrier film of the abdomen was obtained. One percutaneous drain ending in the Right upper quadrant was seen. The esophagus was successfully intubated under direct vision. The scope was advanced to a normal major papilla in the descending duodenum without detailed examination of the pharynx, larynx and associated structures, and upper GI tract. The upper GI tract was grossly normal. The major papilla was located partially within a diverticulum. A 0.035 inch straight standard wire was passed into the biliary tree. The Fusion OMNI sphincterotome was passed over the guidewire and the bile duct was then deeply cannulated. Contrast was injected. I personally interpreted the bile duct images. Ductal flow of contrast was adequate. Image quality was adequate. Contrast extended to the main bile duct. Opacification of the entire biliary tree except for the gallbladder was successful. The maximum diameter of the ducts was 8 mm. No clear evidence of bile leak seen. Biliary sphincterotomy was made with a monofilament traction (standard) sphincterotome using ERBE electrocautery. There was no post-sphincterotomy bleeding. The biliary tree was swept with a 12 mm balloon starting at the bifurcation. One stone was removed. No stones remained. One 10 Fr by 10 cm plastic biliary stent with a single external flap and a single internal flap was placed into the common bile duct. Bile flowed through the stent. The stent was in good position. Indomethacin 100 mg was given via suppository to decrease the risk of post-ERCP pancreatitis (PEP). PD was not cannulated. Impression: - Choledocholithiasis was found. Complete removal was accomplished by biliary sphincterotomy and balloon extraction. - One plastic biliary stent was placed into the common bile duct. Recommendation: - Return patient to [facility] care. - Repeat ERCP in 6 weeks to remove stent. Franki Monk MD 09/02/2020 8:17:59 PM This report has been signed electronically. Note Initiated On: 09/02/2020 7:28 PM Number of Addenda: 0 I attest to the content of the Intraoperative Record and orders documented therein, exceptions below {[id number]}
[2020-09-02] MEDS ORDERED: PANTOprazole 40 MG in SYRINGE 0 ML IV ONE (20:19)
--- NOTE | 2020-09-02 20:36 | Anesthesiology Progress Note ---
Date of Service September 02, 2020 Anesthesia Post Procedure Vital Signs Vital Signs: Temp Pulse Pulse Resp BP BP Pulse Ox 09/02/20 20:33 89 22 140/91 94 09/02/20 20:25 94 H 22 144/99 H 94 09/02/20 20:15 97 H 24 140/96 97 09/02/20 20:05 37.7 C H 98 H 20 120/87 95 09/02/20 18:15 36.9 C 86 18 132/86 97 09/02/20 15:33 36.9 C 82 18 124/76 97 09/02/20 12:00 37.1 C 82 16 121/82 95 09/02/20 07:34 37.1 C 79 18 128/77 95 09/02/20 03:29 37.1 C 93 H 18 116/79 90 09/02/20 02:20 82 14 94 09/02/20 01:08 96 09/02/20 00:16 36.8 C 81 18 96 09/01/20 23:41 37.4 C 87 18 123/71 94 Pain Intensity Abdomen: Pain Intensity: 0 Transfer of Care Handoff Completed per policy Notes Mental Status: alert / awake / arousable Patient Amnestic to Procedure: Yes Nausea / Vomiting: adequately controlled Pain: adequately controlled Airway Patency, RR, SpO2: stable & adequate BP & HR: stable & adequate Hydration State: stable & adequate Anesthetic Complications: no major complications apparent and Pt Satisfied with anesthetic care Notes: The patient is awake and stable at his baseline.
[2020-09-02 22:39] LABS: Base Excess VBG -0.6 mEq/L; pH VBG 7.36 (7.36-7.41)
[2020-09-02] MEDS: SENNA 8.6 MG TAB PO SCH (22:43)
[2020-09-03] MEDS: D5W AND 1/2NSS + 20MEQ KCL 20 MEQ/1,000 ML BAG IV SCH ×4 (01:45→21:19)
[2020-09-03] MEDS: PIPERACILLIN/TAZOBACTAM 3.375 GM in DEXTROSE 5% 100 ML IV SCH ×3 (06:58→23:50)
[2020-09-03] MEDS: LEVOTHYROXINE SODIUM 88 MCG TABLET PO SCH (07:03)
--- NOTE | 2020-09-03 07:05 | Surgery Progress Note ---
Date of Service September 03, 2020 Assessment & Plan (1) Acute gangrenous cholecystitis: -s/p cholecystectomy on 09/01 and ERCP on 09/02 due to choledocholithiasis -continue CÉSAR drain -will likely advance diet this am Admission and Anticipated Discharge Date Admission Date: August 31, 2020 Subjective Pt. non-verbal. Discussed with RN and no acute issues noted. Physical Exam Constitutional: well developed and well nourished; no acute distress Respiratory: normal respiratory effort; no respiratory distress and no labored breathing using BiPAP as ordered Gastrointestinal (Abdomen): CÉSAR in place; abdomen with slight distention, palpation does not appear to cause pain Results & Data ([facility]) Vital Signs (Past 12 Hours) Vital Signs Temp Pulse Pulse Pulse Resp BP BP 09/03/20 04:07 36.5 C 69 18 130/78 09/03/20 03:15 91 H 18 09/02/20 23:00 37.4 C 78 20 154/81 H 09/02/20 21:55 37.9 C H 85 18 138/82 09/02/20 21:25 37.8 C H 83 20 138/87 09/02/20 21:00 85 17 09/02/20 20:55 37.3 C 92 H 18 142/87 H 09/02/20 20:45 37.9 C H 87 22 132/83 09/02/20 20:35 37.9 C H 89 22 140/91 09/02/20 20:25 94 H 22 144/99 H 09/02/20 20:15 97 H 24 140/96 09/02/20 20:05 37.7 C H 98 H 20 120/87 Pulse Ox 09/03/20 04:07 97 09/03/20 03:15 95 09/02/20 23:00 100 09/02/20 21:55 100 09/02/20 21:25 100 09/02/20 21:00 97 09/02/20 20:55 95 09/02/20 20:45 100 09/02/20 20:35 94 09/02/20 20:25 94 09/02/20 20:15 97 09/02/20 20:05 95 PG Care Time/CCT Total # of Minutes Spent Total Time Spent with Patient: Total time spent is greater than 50% in coordination of care (as documented) at patient's floor/unit and/or counseling patient: Coding Level of Care Code None Diagnoses Acute gangrenous cholecystitis K81.0
[2020-09-03 07:17] LABS: Basophils # (auto) 0.01 K/uL (0-0.2); Basophils % (auto) 0.2 %; Eosinophils % (auto) 1.5 %; Hematocrit (blood only) 32.5 % (42-52); Hemoglobin 11.1 g/dL (14.0-18.0); Immature Granulocytes # (auto) 0.05 K/uL (0.00-0.02); Immature Granulocytes % (auto) 0.8 %; Lymphocytes # (auto) 1.74 K/uL (1.2-3.4); Lymphocytes % (auto) 26.4 %; Mean Corpuscular Hemoglobin 31.4 pg (25-34); Mean Corpuscular Hgb Conc 34.2 g/dL (32-36); Mean Corpuscular Volume 91.8 fL (80-100); Mean Platelet Volume 9.4 fL (7.4-10.4); Monocytes # (auto) 0.84 K/uL (0.11-0.59); Monocytes % (auto) 12.8 %; Neutrophils # (auto) 3.84 K/uL (1.4-6.5); Neutrophils % (auto) 58.3 %; Platelet Count 413 K/uL (130-400); RDW Coefficient of Variation 12.9 % (11.5-14.5); RDW Standard Deviation 43.7 fL (36.4-46.3); Red Blood Count 3.54 M/uL (4.7-6.1); White Blood Count 6.58 K/uL (4.8-10.8)
[2020-09-03 07:54] LABS: Albumin Globulin Ratio 0.5 (0.9-2); Albumin Level 1.8 gm/dl (3.4-5.0); BUN Creatinine Ratio 12.2 (10-20); Bilirubin,Total 0.7 mg/dl (0.2-1); Calcium 7.9 mg/dl (8.5-10.1); Creatinine Clr Calc Pharmacy 76.4 ml/min; Est GFR (African American) 96.6; Est GFR (Non-African American) 83.3; Globulin 3.9 gm/dl (2.5-4.0); Potassium 3.9 mmol/L (3.5-5.1); Total Protein 5.7 gm/dl (6.4-8.2)
[2020-09-03] MEDS: CHOLECALCIFEROL 1,000 UNITS 25 MCG TAB PO SCH (09:22)
[2020-09-03] MEDS: FEBUXOSTAT 40 MG TABLET PO SCH (09:22)
[2020-09-03] MEDS: DOCUSATE SODIUM 100 MG CAP PO SCH ×2 (09:22→21:18)
[2020-09-03] MEDS: DIVALPROEX SODIUM SPRINKLE 125 MG CAP PO SCH ×2 (09:23→21:19)
[2020-09-03] MEDS: ESCITALOPRAM OXALATE 10 MG TAB PO SCH (09:23)
[2020-09-03] MEDS: VITAMIN B COMPLEX TAB PO SCH (09:23)
[2020-09-03] MEDS: ADVANCED PROBIOTIC 1250 MG CAPSULE PO SCH (09:23)
[2020-09-03] MEDS: MEMANTINE HCL 10 MG TAB PO SCH ×2 (09:24→21:20)
[2020-09-03] MEDS ORDERED: PANTOprazole 40 MG in SYRINGE 0 ML IV SCH (11:00)
--- NOTE | 2020-09-03 13:22 | Hospitalist Progress Note ---
Date of Service September 03, 2020 Assessment & Plan (1) Acute gangrenous cholecystitis: s/p subtotal lap lucho on 09/01. Gall bladder was severely gangrenous and diseased at time of surgery. Intra-op culture growing E. coli resistant to ampicillin, ampicillin/sulbactam, gentamicin, and Bactrim-- continue IV zosyn and eventually convert to oral antibiotics. CÉSAR drain remains in place Patient's LFTs fernando overnight after surgery-GI was consulted GI Dr Monk performed ERCP/EUS and ERCP revealed choledocholithiasis. Now s/p extraction of stone and stent placement. No purulence noted per his op note. Doing much better, advance diet to clear liquids today -Continue IV zosyn, IV fluids with D5 half-normal with 20 M EQ potassium chloride -Does not seem to be having any pain but Tylenol is ordered as needed, discontinue morphine as it may contribute to worsening mental status -Can convert IV meds to p.o. now that tolerating p.o. -Bowel regimen with senna, MiraLAX as needed, milk of magnesia as needed, docusate twice daily Appreciate gen surg and GI consultations Of note, he had lymphadenopathy noted in the region of the celiac region, peripancreatic region, and su hepatis region largest measuring 22 mm-GI recommends repeat CT scan abdomen/pelvis with contrast in 5 weeks for follow-up (2) Sepsis: 2nd gangrenous gall bladder. Now resolved (3) Choledocholithiasis: as noted on ERCP as above see above. Follow LFTs (4) Acute metabolic encephalopathy: suspect 2nd to severe sepsis, recent anesthesia, and acute respiratory acidosis. Ammonia and lactate levels were normal, TSH mildly elevated at 6 Now much improved status post ERCP, recovery from anesthesia, and with BiPAP to correct respiratory acidosis continue IV antibiotics and supportive care as above. Continue to HOLD melatonin, seroquel and remeron in the face of his severe sedation. -Much improved At baseline he is nonverbal as per (5) Acute respiratory failure with hypercapnia: 2nd to severe sedation in face of sepsis, recent surgery, etc. VBG was abnormal and is now improved after BiPAP Resolved (6) Acute kidney injury: 2nd to sepsis. Creatinine now normal Follow BMP in am. Continue IV fluids. Continue holding ARB (7) Hypertension: Blood pressures are acceptable -Continue to hold ARB (8) Hypothyroidism: TSH mildly elevated here at 6.04 but in the setting of acute illness cont synthroid at current home dose Follow TFTs in 6 weeks as an outpatient (9) Frontotemporal dementia: Severe and progressive, resides in memory care at [facility]. Is nonverbal at baseline I suspect that his depakote, seroquel, etc is for behavior related to his dementia. depakote level at admission was 17. holding other agents due to severe sedation/lethargy as noted above. Continue Lexapro DNR status. Continue supportive care (10) Esophagitis: as seen on ERCP start IV PPI daily and convert to oral PPI in the morning. Dr Monk recommends oral PPI x 1month after d/c. (11) DVT prophylaxis: holding chemical means today due to ERCP can likely start SC heparin or lovenox when okay with surgeon/GI SCDs updated at the bedside Disposition-continued stay on medical/surgical floor Admission and Anticipated Discharge Date Admission Date: August 31, 2020 Subjective Patient is nonverbal but is awake and eating lunch when I saw him, smiling. His is at the bedside and does not report any problems. She does not notice him grimacing which is usually a sign of pain. He was on BiPAP overnight which has been weaned off. Review of Systems Review of Systems: Unobtainable due to cognitive status Physical Exam Constitutional: WD/WN, vitals as above Eyes: + anicteric sclerae Neck: trachea midline, no thyromegaly Respiratory: normal respiratory effort, lungs clear to auscultation Cardiovascular: RRR, no murmur, no edema Chest (Breasts): Chest: normal inspection of chest Gastrointestinal (Abdomen): Inspection/Auscultation: normal bowel sounds; + abdomen abnormal to inspection (With right-sided abdominal dressing with CÉSAR drain with serosang drainage) and abdomen not distended Percussion/Palpation: abdomen soft; abdomen nontender Umbilical dressing with small clear fluid- filled blister underneath it Musculoskeletal: Extremities: extremities normal to inspection; no cyanosis and no clubbing Skin: no rashes, warm and dry Neurologic: moves all extremities and awake; no focal motor deficits Psychiatric: Speech: + mute Lymphatic: no lymphedema Results & Data Results & Data ([facility]) Vital Signs (Past 12 Hours) Vital Signs Temp Pulse Pulse Resp BP Pulse Ox 09/03/20 09:16 97 09/03/20 07:47 36.7 C 67 16 135/82 96 09/03/20 04:07 36.5 C 69 18 130/78 97 09/03/20 03:15 91 H 18 95 Laboratory Results 09/03/20 09/03/20 09/03/20 Range/Units 07:03 07:03 07:03 WBC 6.58 (4.8-10.8) K/uL RBC 3.54 L (4.7-6.1) M/uL Hgb 11.1 L (14.0-18.0) g/dL Hct 32.5 L (42-52) % MCV 91.8 (80-100) fL MCH 31.4 (25-34) pg MCHC 34.2 (32-36) g/dL RDW Std Deviation 43.7 (36.4-46.3) fL RDW Coeff of Stella 12.9 (11.5-14.5) % Plt Count 413 H (130-400) K/uL MPV 9.4 (7.4-10.4) fL Immature Gran % (Auto) 0.8 % Neut % (Auto) 58.3 % Lymph % (Auto) 26.4 % Kendall % (Auto) 12.8 % Eos % (Auto) 1.5 % Baso % (Auto) 0.2 % Neut # (Auto) 3.84 (1.4-6.5) K/uL Lymph # (Auto) 1.74 (1.2-3.4) K/uL Kendall # (Auto) 0.84 H (0.11-0.59) K/uL Eos # (Auto) 0.10 (0-0.5) K/uL Baso # (Auto) 0.01 (0-0.2) K/uL Immature Gran # (Auto) 0.05 H (0.00-0.02) K/uL VBG pH (7.36-7.41) VBG pCO2 (38-50) mmHg VBG pO2 mmHg VBG HCO3 mmol/L VBG O2 Saturation % VBG Base Excess mEq/L Barometric Pressure mm/Hg Sodium 139 (136-145) mmol/L Potassium 3.9 (3.5-5.1) mmol/L Chloride 109 H (98-107) mmol/L Carbon Dioxide 26 (21-32) mmol/L Anion Gap 4.0 (3-11) BUN 12 (7-18) mg/dl Creatinine 0.97 (0.6-1.4) mg/dl Est Cr Clr Drug Dosing 76.4 ml/min Est GFR ( Amer) 96.6 Est GFR (Non-Af Amer) 83.3 BUN/Creatinine Ratio 12.2 (10-20) Glucose 118 H (70-99) mg/dl Lactate (0.4-2.0) mmol/L Calcium 7.9 L (8.5-10.1) mg/dl Total Bilirubin 0.7 (0.2-1) mg/dl AST 30 (15-37) U/L ALT 55 (12-78) U/L Alkaline Phosphatase 146 H (45-117) U/L Ammonia (11-32) umol/L Total Protein 5.7 L (6.4-8.2) gm/dl Albumin 1.8 L (3.4-5.0) gm/dl Globulin 3.9 (2.5-4.0) gm/dl Albumin/Globulin Ratio 0.5 L (0.9-2) TSH 6.040 H (0.300-4.500) uIu/ml 09/02/20 09/02/20 09/02/20 Range/Units 22:26 13:27 13:27 WBC (4.8-10.8) K/uL RBC (4.7-6.1) M/uL Hgb (14.0-18.0) g/dL Hct (42-52) % MCV (80-100) fL MCH (25-34) pg MCHC (32-36) g/dL RDW Std Deviation (36.4-46.3) fL RDW Coeff of Stella (11.5-14.5) % Plt Count (130-400) K/uL MPV (7.4-10.4) fL Immature Gran % (Auto) % Neut % (Auto) % Lymph % (Auto) % Kendall % (Auto) % Eos % (Auto) % Baso % (Auto) % Neut # (Auto) (1.4-6.5) K/uL Lymph # (Auto) (1.2-3.4) K/uL Kendall # (Auto) (0.11-0.59) K/uL Eos # (Auto) (0-0.5) K/uL Baso # (Auto) (0-0.2) K/uL Immature Gran # (Auto) (0.00-0.02) K/uL VBG pH 7.36 7.33 L (7.36-7.41) VBG pCO2 45 51 H (38-50) mmHg VBG pO2 36 31 mmHg VBG HCO3 25 26 mmol/L VBG O2 Saturation 64.0 < 60.0 % VBG Base Excess -0.6 -0.4 mEq/L Barometric Pressure 741.9 734.9 mm/Hg Sodium (136-145) mmol/L Potassium (3.5-5.1) mmol/L Chloride (98-107) mmol/L Carbon Dioxide (21-32) mmol/L Anion Gap (3-11) BUN (7-18) mg/dl Creatinine (0.6-1.4) mg/dl Est Cr Clr Drug Dosing ml/min Est GFR ( Amer) Est GFR (Non-Af Amer) BUN/Creatinine Ratio (10-20) Glucose (70-99) mg/dl Lactate (0.4-2.0) mmol/L Calcium (8.5-10.1) mg/dl Total Bilirubin (0.2-1) mg/dl AST (15-37) U/L ALT (12-78) U/L Alkaline Phosphatase (45-117) U/L Ammonia 29.3 (11-32) umol/L Total Protein (6.4-8.2) gm/dl Albumin (3.4-5.0) gm/dl Globulin (2.5-4.0) gm/dl Albumin/Globulin Ratio (0.9-2) TSH (0.300-4.500) uIu/ml 09/02/20 Range/Units 13:27 WBC (4.8-10.8) K/uL RBC (4.7-6.1) M/uL Hgb (14.0-18.0) g/dL Hct (42-52) % MCV (80-100) fL MCH (25-34) pg MCHC (32-36) g/dL RDW Std Deviation (36.4-46.3) fL RDW Coeff of Stella (11.5-14.5) % Plt Count (130-400) K/uL MPV (7.4-10.4) fL Immature Gran % (Auto) % Neut % (Auto) % Lymph % (Auto) % Kendall % (Auto) % Eos % (Auto) % Baso % (Auto) % Neut # (Auto) (1.4-6.5) K/uL Lymph # (Auto) (1.2-3.4) K/uL Kendall # (Auto) (0.11-0.59) K/uL Eos # (Auto) (0-0.5) K/uL Baso # (Auto) (0-0.2) K/uL Immature Gran # (Auto) (0.00-0.02) K/uL VBG pH (7.36-7.41) VBG pCO2 (38-50) mmHg VBG pO2 mmHg VBG HCO3 mmol/L VBG O2 Saturation % VBG Base Excess mEq/L Barometric Pressure mm/Hg Sodium (136-145) mmol/L Potassium (3.5-5.1) mmol/L Chloride (98-107) mmol/L Carbon Dioxide (21-32) mmol/L Anion Gap (3-11) BUN (7-18) mg/dl Creatinine (0.6-1.4) mg/dl Est Cr Clr Drug Dosing ml/min Est GFR ( Amer) Est GFR (Non-Af Amer) BUN/Creatinine Ratio (10-20) Glucose (70-99) mg/dl Lactate 2.0 (0.4-2.0) mmol/L Calcium (8.5-10.1) mg/dl Total Bilirubin (0.2-1) mg/dl AST (15-37) U/L ALT (12-78) U/L Alkaline Phosphatase (45-117) U/L Ammonia (11-32) umol/L Total Protein (6.4-8.2) gm/dl Albumin (3.4-5.0) gm/dl Globulin (2.5-4.0) gm/dl Albumin/Globulin Ratio (0.9-2) TSH (0.300-4.500) uIu/ml Gallbladder fluid culture with E. coli, resistant to ampicillin, ampicillin/sulbactam, gentamicin, Bactrim PG Care Time/CCT Total # of Minutes Spent Total Time Spent with Patient: Total time spent is greater than 50% in coordination of care (as documented) at patient's floor/unit and/or counseling patient: Coding Level of Care Code 93288 Subseq Hosp Care Lvl 3 Diagnoses Acute gangrenous cholecystitis K81.0 Sepsis A41.9 Choledocholithiasis K80.50 Acute metabolic encephalopathy G93.41 Acute respiratory failure with hypercapnia J96.02 Acute kidney injury N17.9 Hypertension I10 Hypertension type: unspecified Hypothyroidism E03.9 Hypothyroidism type: unspecified Frontotemporal dementia G31.09; F02.80 Esophagitis K20.90 DVT prophylaxis Z29.9 (1) Hypertension Hypertension type: unspecified Qualified Code(s): I10 - Essential (primary) hypertension (2) Hypothyroidism Hypothyroidism type: unspecified Qualified Code(s): E03.9 - Hypothyroidism, unspecified
[2020-09-04] MEDS: D5W AND 1/2NSS + 20MEQ KCL 20 MEQ/1,000 ML BAG IV SCH ×3 (03:50→20:09)
[2020-09-04 05:53] LABS: Basophils # (auto) 0.02 K/uL (0-0.2); Basophils % (auto) 0.3 %; Eosinophils # (auto) 0.18 K/uL (0-0.5); Eosinophils % (auto) 2.7 %; Hematocrit (blood only) 34.7 % (42-52); Hemoglobin 11.8 g/dL (14.0-18.0); Immature Granulocytes # (auto) 0.08 K/uL (0.00-0.02); Immature Granulocytes % (auto) 1.2 %; Lymphocytes % (auto) 25.7 %; Mean Corpuscular Hemoglobin 30.7 pg (25-34); Mean Corpuscular Volume 90.4 fL (80-100); Mean Platelet Volume 9.3 fL (7.4-10.4); Monocytes # (auto) 0.63 K/uL (0.11-0.59); Monocytes % (auto) 9.5 %; Neutrophils # (auto) 4.01 K/uL (1.4-6.5); Neutrophils % (auto) 60.6 %; Platelet Count 598 K/uL (130-400); RDW Coefficient of Variation 12.9 % (11.5-14.5); RDW Standard Deviation 42.6 fL (36.4-46.3); Red Blood Count 3.84 M/uL (4.7-6.1); White Blood Count 6.62 K/uL (4.8-10.8)
[2020-09-04] MEDS: PIPERACILLIN/TAZOBACTAM 3.375 GM in DEXTROSE 5% 100 ML IV SCH (06:12)
[2020-09-04] MEDS: LEVOTHYROXINE SODIUM 88 MCG TABLET PO SCH (06:12)
--- NOTE | 2020-09-04 06:30 | Surgery Progress Note ---
Date of Service September 04, 2020 Assessment & Plan (1) Acute gangrenous cholecystitis: -s/p cholecystectomy on 09/01 and ERCP on 09/02 due to choledocholithiasis -continue CÉSAR drain -will continue diet advancement as tolerated Admission and Anticipated Discharge Date Admission Date: August 31, 2020 Subjective When asked how he is doing pt. states "good.". He does not offer much more in the way of verbal commentary. Discussed with RN--pt. doing well without N/V and tolerating oral intake. Physical Exam Gastrointestinal (Abdomen): Percussion/Palpation: abdomen soft; abdomen nontender palpation does not cause pain Results & Data ([facility]) Vital Signs (Past 12 Hours) Vital Signs Temp Pulse Resp BP Pulse Ox 09/03/20 22:49 36.8 C 82 18 152/89 H 96 PG Care Time/CCT Total # of Minutes Spent Total Time Spent with Patient: Total time spent is greater than 50% in coordination of care (as documented) at patient's floor/unit and/or counseling patient: Coding Level of Care Code None Diagnoses Acute gangrenous cholecystitis K81.0
[2020-09-04 06:35] LABS: Albumin Level 1.9 gm/dl (3.4-5.0); BUN Creatinine Ratio 8.7 (10-20); Bilirubin Direct 0.2 mg/dl (0-0.2); Calcium 7.9 mg/dl (8.5-10.1); Creatinine Clr Calc Pharmacy 75.6 ml/min; Est GFR (African American) 95.4; Est GFR (Non-African American) 82.3; Magnesium 2.1 mg/dl (1.8-2.4); Potassium 3.9 mmol/L (3.5-5.1)
[2020-09-04 06:37] LABS: Bilirubin,Total 0.6 mg/dl (0.2-1); Phosphorus 2.4 mg/dl (2.5-4.9); Total Protein 5.9 gm/dl (6.4-8.2)
[2020-09-04] MEDS: DIVALPROEX SODIUM SPRINKLE 125 MG CAP PO SCH ×2 (08:44→20:10)
[2020-09-04] MEDS: DOCUSATE SODIUM 100 MG CAP PO SCH ×2 (08:44→20:09)
[2020-09-04] MEDS: VITAMIN B COMPLEX TAB PO SCH (08:45)
[2020-09-04] MEDS: ADVANCED PROBIOTIC 1250 MG CAPSULE PO SCH (08:46)
[2020-09-04] MEDS: ESCITALOPRAM OXALATE 10 MG TAB PO SCH (08:47)
[2020-09-04] MEDS: FEBUXOSTAT 40 MG TABLET PO SCH (08:47)
[2020-09-04] MEDS: PANTOprazole 40 MG TAB PO SCH (08:48)
[2020-09-04] MEDS: CHOLECALCIFEROL 1,000 UNITS 25 MCG TAB PO SCH (08:48)
[2020-09-04] MEDS: MEMANTINE HCL 10 MG TAB PO SCH ×2 (08:48→20:10)
--- NOTE | 2020-09-04 09:28 | Hospitalist Progress Note ---
Date of Service September 04, 2020 Assessment & Plan (1) Acute gangrenous cholecystitis: s/p subtotal lap lucho on 09/01. Gall bladder was severely gangrenous and diseased at time of surgery. Intra-op culture growing E. coli resistant to ampicillin, ampicillin/sulbactam, gentamicin, and Bactrim CÉSAR drain remains in place Patient's LFTs fernando overnight 09/03 after surgery-GI was consulted GI Dr Monk performed ERCP/EUS and ERCP revealed choledocholithiasis. Now s/p extraction of stone and stent placement. No purulence noted per his op note. surgery is with oversight of advance diet - based on sensitivities will change to iv rocephin ( can consider po cipro if needs longer course) -Does not seem to be having any pain but Tylenol is ordered as needed, discontinue morphine as it may contribute to worsening mental status -pt is having diarrhea, and incontinence will reduce Bowel regimen previously with senna, MiraLAX as needed, milk of magnesia as needed, docusate twice daily Appreciate gen surg and GI consultations Of note, he had lymphadenopathy noted in the region of the celiac region, peripancreatic region, and su hepatis region largest measuring 22 mm-GI recommends repeat CT scan abdomen/pelvis with contrast in 5 weeks for follow-up, however will plan these future workups based on family discussion of goals of care (2) Sepsis: 2nd gangrenous gall bladder. Now resolved (3) Choledocholithiasis: as noted on ERCP as above see above. normalized with exception of alk phos (4) Acute metabolic encephalopathy: suspect 2nd to severe sepsis, recent anesthesia, and acute respiratory acidosis. Ammonia and lactate levels were normal, TSH mildly elevated at 6 Now much improved status post ERCP, recovery from anesthesia, and with BiPAP to correct respiratory acidosis continue IV antibiotics and supportive care as above. Continue to HOLD melatonin, seroquel and remeron At baseline he is nonverbal as per and she is open to goals of care discussion as he has had prehospital progression of his dementia (5) Acute respiratory failure with hypercapnia: resolved after appropriate medications held (6) Acute kidney injury: resolved 2nd to sepsis. Continue holding ARB (7) Hypertension: Blood pressures are acceptable -Continue to hold ARB (8) Hypothyroidism: TSH mildly elevated here at 6.04 but in the setting of acute illness cont synthroid at current home dose Follow TFTs as an outpatient (9) Frontotemporal dementia: Severe and progressive, resides in memory care at [facility]. Is nonverbal at baseline it is suspected that his depakote, seroquel, etc is for behavior related to his dementia. depakote level at admission was 17. DNR status. will have palliative care consult as is concerned about his progressive cognitive decline and that it may be a physical sharp to have him cooperate with physical therapy, so as not to create this conflict or medication him to cooperate, she understands that his pre illness wishes were to eventually progress to palliative/hospice care and wishes to discuss goals of care and what a possible future transition may look like. (10) Esophagitis: as seen on ERCP PPI daily Dr Monk recommends oral PPI x 1month after d/c. (11) DVT prophylaxis: SCDs updated at the bedside 09/04/20 Disposition-continued stay on medical/surgical floor Admission and Anticipated Discharge Date Admission Date: August 31, 2020 Subjective pt has frontal lobe dementia, is with very sparse communication, his is at bedside, she is supportive and understands that his dementia is progressing she will be open to discuss goals of care with palliative care this week Review of Systems Review of Systems: Unobtainable due to cognitive status Physical Exam Physical Exam: The patient appeared well nourished and normally developed. Vital signs as documented. Head exam is normocephalic atraumatic no scleral icterus Neck is without JVD, thyromegaly, or carotid bruits. Lungs are clear to auscultation, no focal loss of breath sounds Cardiac exam, Rhythm is regular.. No murmurs, rubs or gallops. Abdominal exam reveals hypoactive bowel sounds dressings in place CÉSAR drain at the right upper quadrant is still draining serosanguineous liquid abdomen is somewhat tender to examination Extremities are nonedematous and both pedal pulses are present Neurologic exam is alert expressionless bradykinetic typically not interested in cooperating with examination today Skin is without bruises within the operative site Psychologically is with concerns for progressive frontal lobe dementia Results & Data Results & Data ([facility]) Vital Signs (Past 12 Hours) Vital Signs Temp Pulse Pulse Resp BP Pulse Ox 09/04/20 06:58 99.1 F 77 18 151/91 H 97 09/03/20 22:49 98.2 F 82 18 152/89 H 96 PG Care Time/CCT Total # of Minutes Spent Total Time Spent with Patient: Total time spent is greater than 50% in coordination of care (as documented) at patient's floor/unit and/or counseling patient: Coding Level of Care Code 63532 Subseq Hosp Care Lvl 3 Diagnoses Acute gangrenous cholecystitis K81.0 Sepsis A41.9 Choledocholithiasis K80.50 Acute metabolic encephalopathy G93.41 Acute respiratory failure with hypercapnia J96.02 Acute kidney injury N17.9 Hypertension I10 Hypertension type: unspecified Hypothyroidism E03.9 Hypothyroidism type: unspecified Frontotemporal dementia G31.09; F02.80 Esophagitis K20.90 DVT prophylaxis Z29.9 (1) Hypothyroidism Hypothyroidism type: unspecified Qualified Code(s): E03.9 - Hypothyroidism, unspecified (2) Hypertension Hypertension type: unspecified Qualified Code(s): I10 - Essential (primary) hypertension
[2020-09-04] MEDS: cefTRIAXone SODIUM 2,000 MG in DEXTROSE 5% 50 ML IV SCH (15:02)
[2020-09-04] MEDS: ACETAMINOPHEN 325 MG TAB PO PRN (15:51)
[2020-09-04] MEDS: SENNA 8.6 MG TAB PO SCH (20:10)
[2020-09-05] MEDS: D5W AND 1/2NSS + 20MEQ KCL 20 MEQ/1,000 ML BAG IV SCH ×3 (04:07→20:01)
[2020-09-05] MEDS: LEVOTHYROXINE SODIUM 88 MCG TABLET PO SCH (04:08)
[2020-09-05] MEDS: DOCUSATE SODIUM 100 MG CAP PO SCH ×2 (08:49→21:04)
[2020-09-05] MEDS: FEBUXOSTAT 40 MG TABLET PO SCH (08:49)
[2020-09-05] MEDS: DIVALPROEX SODIUM SPRINKLE 125 MG CAP PO SCH ×2 (08:50→21:05)
[2020-09-05] MEDS: MEMANTINE HCL 10 MG TAB PO SCH ×2 (08:50→21:06)
[2020-09-05] MEDS: CHOLECALCIFEROL 1,000 UNITS 25 MCG TAB PO SCH (08:51)
[2020-09-05] MEDS: VITAMIN B COMPLEX TAB PO SCH (08:51)
[2020-09-05] MEDS: PANTOprazole 40 MG TAB PO SCH (08:51)
[2020-09-05] MEDS: ESCITALOPRAM OXALATE 10 MG TAB PO SCH (08:51)
[2020-09-05] MEDS: ADVANCED PROBIOTIC 1250 MG CAPSULE PO SCH (08:52)
--- NOTE | 2020-09-05 09:12 | Palliative Care Consultation ---
Date of Consultation September 05, 2020 Assessment & Plan (1) Palliative care encounter: This patient is a 60 year old male who presented to the [facility] from [facility] care [facility] with abdominal pain, decreased PO intake, and worsening lethargy. The patient has severe frontotemporal dementia and is non- verbal at baseline. A CT was performed and he was found to have a gangrenous cholelithiasis and underwent a cholecystectomy on September 01, 2020 and an ERCP on September 02, 2020. Post-operatively, he has a CÉSAR drain and is advancing his diet as tolerated. The patients , Ca, stated she has concerns regarding his overall progress and progressive cognitive decline and is int erested in discussing goals of care. Pt is an established DNR/DNI. Palliative care was consulted to discuss further. -I met with the patient in room 387. The patient did not fix his gaze on me and did not answer questions or follow commands appropriately. The patients daughter, Ruba, was at the bedside and she indicated that her stepmother, Ca, was in the waiting room. I called Ca at [phone] and we met in the lobby in a conference room to discuss her husbands care at length. They share a daughter and he has two other daughters from a previous marriage (Ruba and another daughter who is estranged from his life) He has lived at [facility] for 3 years and has done relatively well there. He does have some behaviors that require medication (Seroquel, Lexapro and Remeron). He apparent has grabbed at staff out of fear, but that has not occurred for over a year. She would like to take a conservative approach to his care moving forward. I certainly believe he would qualify for Hospice Services with a diagnosis of: Senile Degeneration of the Brain. Taking into consideration his dementia, on a FAST score, I would indicate him to be all of 6 and all of 7, indicating severe dementia. We did discuss the possibility that he could return to [facility] in [place] with Hospice services. 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 I communicated the above with the showcase trimmer, who will reach out to [facility] to determine which hospice service they are contracted with. I returned to the room to leave the completed POLST form. Ruba, his daughter, was updated as well. Dr. Haywood was updated as well. At this time, palliative will follow peripherally, unless additional needs arise. (2) Frontotemporal dementia: (3) Acute gangrenous cholecystitis: (4) Sepsis: History of Present Illness Reason for Consultation: Goals of care Requesting Physician: Dr. Haywood Attending Physician: Jules Haywood MD History of Present Illness This patient is a 60 year old male who presented to the [facility] from [facility] with abdominal pain, decreased PO intake, and worsening lethargy. The patient has severe frontotemporal dementia and is non- verbal at baseline. A CT was performed and he was found to have a gangrenous cholelithiasis and underwent a cholecystectomy on September 01, 2020 and an ERCP on September 02, 2020. Post-operatively, he has a CÉSAR drain and is advancing his diet as tolerated. The patients , Ca, stated she has concerns regarding his overall progress and progressive cognitive decline and is interested in discussing goals of care. Pt is an established DNR/DNI. Palliative care was consulted to discuss further. Please see A/P for further details. Thank you kindly for involving the Palliative Care Consultation service with this individual. Allergies Allergy/AdvReac Type Severity Reaction Status Date / Time No Known Allergies Allergy Verified 08/31/20 16:52 Home Medications Home Medications Medication Instructions Recorded Confirmed Type B complex-vitamin C-folic acid 1 tab PO DAILY 08/31/20 08/31/20 History [Folbee Plus] acetaminophen [Tylenol Extended 1,200 mg PO TID PRN MDD 5 08/31/20 08/31/20 History Release] TABLETS/24 HOURS acetaminophen [Tylenol Extended 650 mg PO TID PRN MDD 5 TABLETS/24 08/31/20 08/31/20 History Release] HOURS cholecalciferol (vitamin D3) 2,000 unit PO DAILY 08/31/20 08/31/20 History [Vitamin D3] divalproex 250 mg PO BID 08/31/20 08/31/20 History docusate sodium [DOK] 100 mg PO BID 08/31/20 08/31/20 History escitalopram oxalate 10 mg PO DAILY 08/31/20 08/31/20 History febuxostat 40 mg PO DAILY 08/31/20 08/31/20 History hydroxyzine HCl 50 mg PO Q6H PRN 08/31/20 08/31/20 History ibuprofen 400 mg PO BID 08/31/20 08/31/20 History levothyroxine 88 mcg PO DAILY 08/31/20 08/31/20 History magnesium hydroxide [Milk of 30 ml PO DAILY PRN 08/31/20 08/31/20 History Magnesia] melatonin 3 mg PO HS 08/31/20 08/31/20 History memantine 28 mg PO DAILY 08/31/20 08/31/20 History mirtazapine 15 mg PO HS 08/31/20 08/31/20 History quetiapine 100 mg PO TID 08/31/20 08/31/20 History sennosides [senna] 8.6 mg PO Q2D 08/31/20 08/31/20 History telmisartan 20 mg PO HS 08/31/20 08/31/20 History Patient History Medical History (Updated 09/05/20 @ 09:10 by CAYETANO Greco) Frontotemporal dementia Hypertension Hypothyroidism Palliative care encounter Social History Smoking Status: Never smoker Hx Alcohol Use: No Hx Substance Use: No Preferred Language: Spanish Communication Ability: Unable 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 Beliefs That Will Affect Care: None marital status: Current Living Situation: Longterm Other Information That Helps Us Care for You: No Feels Safe at Home: Yes Safety Concerns: Feels Safe At This Time Assistive Devices: None Review of Systems Review of Systems: Unobtainable due to cognitive status Physical Exam Constitutional: well nourished, + ill appearing and + combative; not in distress Respiratory: normal respiratory effort, lungs clear to auscultation Auscultation: + diminished lung sounds Cardiovascular: RRR, no murmur, no edema Extremities: normal capillary refill and + edema Gastrointestinal (Abdomen): normal bowel sounds, soft, nontender, no hepatosplenomegaly Psychiatric: Orientation: alert; + not oriented x 3 Insight: + severely impaired insight Judgement: + severely impaired judgement Results & Data ([facility]) Vital Signs (Past 12 Hours) Vital Signs Temp Pulse Resp BP Pulse Ox 09/05/20 07:07 37.3 C 83 18 145/84 H 96 09/04/20 23:58 37.2 C 75 16 153/88 H 95 PG Care Time/CCT Total # of Minutes Spent Total Time Spent with Patient: Total time spent is greater than 50% in coordination of care (as documented) at patient's floor/unit and/or counseling patient: 100 Coding Level of Care Code 43797 Inpt Consult Level 4 Diagnoses Palliative care encounter Z51.5 Frontotemporal dementia G31.09; F02.80 Acute gangrenous cholecystitis K81.0 Sepsis A41.9 Time Spent (min) 100 Time Spent Midlevel Total time spent 100 minutes with > 50% of that time spent assessing the patient, discussing goals of care with the patients and collaborating with IDT
--- NOTE | 2020-09-05 12:01 | Surgery Progress Note ---
Date of Service doing fine, no abdominal pain, no nausea, no vomiting, no fever, September 05, 2020 Assessment & Plan (1) Acute cholecystitis: pt is 60 year-old male who presents to Er with 3 days history abdominal pain, IMP: acute cholecystitis, Plan, I recommend to do laparoscopic cholecystectomy, possible open or cholangiogram, D/w benefits, risk sand alternatives of the surgery, the risks - infection, bleeding, injury CBD, pt's family member understood, she agrees with the surgery, I answered all questions, NPO after MN 09/02/2020 1:07PM pod 1 doing fine regular diet, continue iv antibiotic, 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 I have discussed the patient's management with the advanced practitioner. Please refer to the nurse practitioner's note for the documented findings and plan of care. EUS/ERCP today. Subjective pt has frontal lobe dementia, is with very sparse communication, his is at bedside, she is supportive and understands that his dementia is progressing she will be open to discuss goals of care with palliative care this week Review of Systems Constitutional: as per Subjective / HPI dementia Eyes: as per Subjective / HPI Ear, Nose, Mouth, Throat: as per Subjective / HPI Respiratory: as per Subjective / HPI Cardiovascular: as per Subjective / HPI Additional Comments: HTN Gastrointestinal: as per Subjective / HPI abdominal pain Genitourinary: + as per Subjective / HPI Musculoskeletal: as per Subjective / HPI Integumentary: as per Subjective / HPI Neurologic: as per Subjective / HPI Psychiatric: as per Subjective / HPI Endocrine: as per Subjective / HPI hypothyroidism Physical Exam Constitutional: WD/WN, vitals as above well developed and well nourished Eyes: PERRL, conjunctivae normal, anicteric sclerae ENMT: external ear and nose normal, oropharynx normal Neck: trachea midline, no thyromegaly Respiratory: normal respiratory effort, lungs clear to auscultation Cardiovascular: RRR, no murmur, no edema Rate/Rhythm: regular rate and regular rhythm Gastrointestinal (Abdomen): normal bowel sounds, soft, nontender, no hepatosplenomegaly Percussion/Palpation: abdomen soft all incisions heal well, Musculoskeletal: no cyanosis or clubbing, extremities motor strength 5/5 Skin: no rashes, warm and dry Neurologic: awake Psychiatric: Orientation: + guarded Results & Data ([facility]) Vital Signs (Past 12 Hours) Vital Signs Temp Pulse Resp BP Pulse Ox 09/05/20 07:07 37.3 C 83 18 145/84 H 96 (1) Abdominal pain Abdominal location: generalized Qualified Code(s): R10.84 - Generalized abdominal pain
[2020-09-05] MEDS: cefTRIAXone SODIUM 2,000 MG in DEXTROSE 5% 50 ML IV SCH (13:32)
--- NOTE | 2020-09-05 18:04 | Hospitalist Progress Note ---
Date of Service September 05, 2020 Assessment & Plan (1) Acute gangrenous cholecystitis: s/p subtotal lap lucho on 09/01. Gall bladder was severely gangrenous and diseased at time of surgery. Intra-op culture growing E. coli resistant to ampicillin, ampicillin/sulbactam, gentamicin, and Bactrim CÉSAR drain remains in place Patient's LFTs fernando overnight 09/03 after surgery-GI was consulted GI Dr Monk performed ERCP/EUS and ERCP revealed choledocholithiasis. Now s/p extraction of stone and stent placement. No purulence noted per his op note. surgery is with oversight of advance diet - based on sensitivities will change to iv rocephin ( can consider po cipro if needs longer course) -Does not seem to be having any pain but Tylenol is ordered as needed, discontinue morphine as it may contribute to worsening mental status -pt is having diarrhea, and incontinence will reduce Bowel regimen previously with senna, MiraLAX as needed, milk of magnesia as needed, docusate twice daily Appreciate gen surg and GI consultations Of note, he had lymphadenopathy noted in the region of the celiac region, peripancreatic region, and su hepatis region largest measuring 22 mm-GI recommends repeat CT scan abdomen/pelvis with contrast in 5 weeks for follow-up, however will plan these future workups based on family discussion of goals of care (2) Sepsis: 2nd gangrenous gall bladder. Now resolved (3) Choledocholithiasis: as noted on ERCP as above see above. normalized with exception of alk phos (4) Acute metabolic encephalopathy: suspect 2nd to severe sepsis, recent anesthesia, and acute respiratory acidosis. Ammonia and lactate levels were normal, TSH mildly elevated at 6 Now much improved status post ERCP, recovery from anesthesia, and with BiPAP to correct respiratory acidosis continue IV antibiotics and supportive care as above. Continue to HOLD melatonin, seroquel and remeron At baseline he is nonverbal as per and she is open to goals of care discussion as he has had prehospital progression of his dementia (5) Acute respiratory failure with hypercapnia: resolved after appropriate medications held (6) Acute kidney injury: resolved 2nd to sepsis. Continue holding ARB (7) Hypertension: Blood pressures are acceptable -Continue to hold ARB (8) Hypothyroidism: TSH mildly elevated here at 6.04 but in the setting of acute illness cont synthroid at current home dose Follow TFTs as an outpatient (9) Frontotemporal dementia: Severe and progressive, resides in memory care at [facility]. Is nonverbal at baseline it is suspected that his depakote, seroquel, etc is for behavior related to his dementia. depakote level at admission was 17. DNR status. Prolonged visit today with discussions with and daughter who is the stepdaughter. Eventual disposition is going to depend upon whether [facility] will take him back, hospice status [facility] patient's hospice status really revolves around his progressive frontal lobe dementia. He is physically quite strong but he is resistant to direction and instruction for physical therapy which is a difficult to place him in a personal care situation. He does have the physical ability to do things such as walking some self hygiene however his frontal lobe dementia makes him have challenges understanding direction and taking direction. Overall I spent approximately 90 minutes in discussions with his Ca, his daughter Juan M, palliative care services and nursing staff (10) Esophagitis: as seen on ERCP PPI daily Dr Monk recommends oral PPI x 1month after d/c. (11) DVT prophylaxis: SCDs updated at the bedside 09/04/20 Disposition-continued stay on medical/surgical floor Admission and Anticipated Discharge Date Admission Date: August 31, 2020 Subjective pt has frontal lobe dementia, is with very sparse communication, his is at bedside, she is supportive and understands that his dementia is progressing she will be open to discuss goals of care with palliative care this week Review of Systems Review of Systems: Unobtainable due to cognitive status Patient appears restless but comfortable not significantly uncomfortable when examining his abdomen Physical Exam Physical Exam: The patient appeared well nourished and normally developed. Vital signs as documented. Head exam is normocephalic atraumatic no scleral icterus Neck is without JVD, thyromegaly, or carotid bruits. Lungs are clear to auscultation, no focal loss of breath sounds Cardiac exam, Rhythm is regular.. No murmurs, rubs or gallops. Abdominal exam reveals hypoactive bowel sounds dressings in place CÉSAR drain at the right upper quadrant is still draining serosanguineous liquid abdomen is somewhat tender to examination there is no focal guarding or rebound noted Extremities are nonedematous and both pedal pulses are present Neurologic exam is alert expressionless bradykinetic typically not interested in cooperating with examination today Skin is without bruises within the operative site Psychologically is with concerns for progressive frontal lobe dementia Results & Data Results & Data ([facility]) Vital Signs (Past 12 Hours) Vital Signs Temp Pulse Resp BP Pulse Ox 09/05/20 16:29 99.5 F 84 16 160/95 H 97 09/05/20 07:07 99.1 F 83 18 145/84 H 96 PG Care Time/CCT Total # of Minutes Spent Total Time Spent with Patient: Total time spent is greater than 50% in coordination of care (as documented) at patient's floor/unit and/or counseling patient: Coding Level of Care Code 05591 Subseq Hosp Care Lvl 3 Diagnoses Acute gangrenous cholecystitis K81.0 Sepsis A41.9 Choledocholithiasis K80.50 Acute metabolic encephalopathy G93.41 Acute respiratory failure with hypercapnia J96.02 Acute kidney injury N17.9 Hypertension I10 Hypertension type: unspecified Hypothyroidism E03.9 Hypothyroidism type: unspecified Frontotemporal dementia G31.09; F02.80 Esophagitis K20.90 DVT prophylaxis Z29.9 (1) Hypertension Hypertension type: unspecified Qualified Code(s): I10 - Essential (primary) hypertension (2) Hypothyroidism Hypothyroidism type: unspecified Qualified Code(s): E03.9 - Hypothyroidism, unspecified
[2020-09-06] MEDS: D5W AND 1/2NSS + 20MEQ KCL 20 MEQ/1,000 ML BAG IV SCH ×2 (02:51→11:15)
[2020-09-06] MEDS: LEVOTHYROXINE SODIUM 88 MCG TABLET PO SCH (05:58)
[2020-09-06 07:23] LABS: Hematocrit (blood only) 40.5 % (42-52); Mean Corpuscular Hemoglobin 31.4 pg (25-34); Mean Corpuscular Hgb Conc 34.6 g/dL (32-36); Mean Corpuscular Volume 90.8 fL (80-100); Platelet Count 746 K/uL (130-400); RDW Coefficient of Variation 12.9 % (11.5-14.5); RDW Standard Deviation 42.4 fL (36.4-46.3); Red Blood Count 4.46 M/uL (4.7-6.1)
[2020-09-06 07:58] LABS: Albumin Level 2.4 gm/dl (3.4-5.0); BUN Creatinine Ratio 5.7 (10-20); Calcium 9.2 mg/dl (8.5-10.1); Creatinine Clr Calc Pharmacy 76.4 ml/min; Est GFR (African American) 96.6; Est GFR (Non-African American) 83.3; Potassium 4.1 mmol/L (3.5-5.1)
[2020-09-06 08:02] LABS: Albumin Globulin Ratio 0.5 (0.9-2); Bilirubin,Total 0.3 mg/dl (0.2-1); Globulin 4.7 gm/dl (2.5-4.0); Total Protein 7.1 gm/dl (6.4-8.2)
[2020-09-06] MEDS: DOCUSATE SODIUM 100 MG CAP PO SCH (09:01)
[2020-09-06] MEDS: DIVALPROEX SODIUM SPRINKLE 125 MG CAP PO SCH ×2 (09:02→21:36)
[2020-09-06] MEDS: ESCITALOPRAM OXALATE 10 MG TAB PO SCH (09:03)
[2020-09-06] MEDS: MEMANTINE HCL 10 MG TAB PO SCH ×2 (09:04→21:37)
[2020-09-06] MEDS: PANTOprazole 40 MG TAB PO SCH (09:04)
[2020-09-06] MEDS: ADVANCED PROBIOTIC 1250 MG CAPSULE PO SCH (09:04)
[2020-09-06] MEDS: FEBUXOSTAT 40 MG TABLET PO SCH (09:05)
[2020-09-06] MEDS: CHOLECALCIFEROL 1,000 UNITS 25 MCG TAB PO SCH (09:05)
[2020-09-06] MEDS: VITAMIN B COMPLEX TAB PO SCH (09:05)
--- NOTE | 2020-09-06 12:59 | Surgery Progress Note ---
Date of Service pt is stable, no fever, he tolerated diet, no nausea, no vomiting, September 06, 2020 Assessment & Plan (1) Acute cholecystitis: pt is 60 year-old male who presents to Er with 3 days history abdominal pain, IMP: acute cholecystitis, Plan, I recommend to do laparoscopic cholecystectomy, possible open or cholangiogram, D/w benefits, risk sand alternatives of the surgery, the risks - infection, bleeding, injury CBD, pt's family member understood, she agrees with the surgery, I answered all questions, NPO after MN 09/02/2020 1:07PM pod 1 doing fine regular diet, continue iv antibiotic, 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 I have discussed the patient's management with the advanced practitioner. Please refer to the nurse practitioner's note for the documented findings and plan of care. EUS/ERCP today. Subjective pt has frontal lobe dementia, is with very sparse communication, his is at bedside, she is supportive and understands that his dementia is progressing she will be open to discuss goals of care with palliative care this week Review of Systems Constitutional: as per Subjective / HPI dementia Eyes: as per Subjective / HPI Ear, Nose, Mouth, Throat: as per Subjective / HPI Respiratory: as per Subjective / HPI Cardiovascular: as per Subjective / HPI Additional Comments: HTN Gastrointestinal: as per Subjective / HPI abdominal pain Genitourinary: + as per Subjective / HPI Musculoskeletal: as per Subjective / HPI Integumentary: as per Subjective / HPI Neurologic: as per Subjective / HPI Psychiatric: as per Subjective / HPI Endocrine: as per Subjective / HPI hypothyroidism Physical Exam Constitutional: WD/WN, vitals as above well developed and well nourished Eyes: PERRL, conjunctivae normal, anicteric sclerae ENMT: external ear and nose normal, oropharynx normal Neck: trachea midline, no thyromegaly Respiratory: normal respiratory effort, lungs clear to auscultation Cardiovascular: RRR, no murmur, no edema Rate/Rhythm: regular rate and regular rhythm Gastrointestinal (Abdomen): normal bowel sounds, soft, nontender, no hepatosplenomegaly Percussion/Palpation: abdomen soft Musculoskeletal: no cyanosis or clubbing, extremities motor strength 5/5 Skin: no rashes, warm and dry Neurologic: awake Psychiatric: Orientation: + guarded Results & Data ([facility]) Vital Signs (Past 12 Hours) Vital Signs Temp Pulse Resp BP Pulse Ox 09/06/20 07:51 36.2 C L 84 18 151/97 H 96 Laboratory Results Abnormal lab results 09/06/20 09/06/20 Range/Units 06:35 06:35 RBC 4.46 L (4.7-6.1) M/uL Hct 40.5 L (42-52) % Plt Count 746 H (130-400) K/uL BUN 6 L (7-18) mg/dl BUN/Creatinine Ratio 5.7 L (10-20) Glucose 103 H (70-99) mg/dl Alkaline Phosphatase 129 H (45-117) U/L Albumin 2.4 L (3.4-5.0) gm/dl Globulin 4.7 H (2.5-4.0) gm/dl Albumin/Globulin Ratio 0.5 L (0.9-2) (1) Abdominal pain Abdominal location: generalized Qualified Code(s): R10.84 - Generalized abdominal pain
--- NOTE | 2020-09-06 13:37 | Palliative Care Progress Note ---
Date of Service September 06, 2020 Assessment & Plan (1) Palliative care encounter: Plan for return to SNF with hospice care. He appears to be comfortable at rest. I am concerned that combative behavior with care may be pain related. Discussed with RN to premedicate with tylenol prior to am care. He is also having loose stools. Will d/c senna and colace and continue miralax prn for constipation. I was unable to meet with his who has left for work POLST was completed for discharge. Admission and Anticipated Discharge Date Admission Date: August 31, 2020 Subjective Having loose stools. RN feeding him during visit. He appears to have good appetite when fed and no difficulty swallowing. He continues to be combative with care. Review of Systems Review of Systems: Unobtainable due to cognitive status PainAD 0 Physical Exam 2 Constitutional: + disheveled Eyes: stares straight ahead ENMT: external ear and nose normal, oropharynx normal Respiratory: normal respiratory effort; no labored breathing Skin: warm and dry Neurologic: awake Speech / Cognition: + abnormal cognition Psychiatric: Orientation: + not oriented x 3 Results & Data ([facility]) Vital Signs (Past 12 Hours) Vital Signs Temp Pulse Resp BP Pulse Ox 09/06/20 07:51 97.2 F L 84 18 151/97 H 96 PG Care Time/CCT Total # of Minutes Spent Total Time Spent with Patient: Total time spent is greater than 50% in coordination of care (as documented) at patient's floor/unit and/or counseling patient:28 minutes with more than 50% spent on coordinating care with Dr. Haywood and RN, symptom management and plan of care. Coding Level of Care Code 55771 Subseq Hosp Care Lvl 2 Diagnoses Palliative care encounter Z51.5 Time Spent (min) 28 Comment [id number]
[2020-09-06] MEDS: cefTRIAXone SODIUM 2,000 MG in DEXTROSE 5% 50 ML IV SCH (14:07)
--- NOTE | 2020-09-06 17:11 | Hospitalist Progress Note ---
Date of Service September 06, 2020 Assessment & Plan (1) Acute gangrenous cholecystitis: s/p subtotal lap lucho on 09/01. Gall bladder was severely gangrenous and diseased at time of surgery. Intra-op culture growing E. coli resistant to ampicillin, ampicillin/sulbactam, gentamicin, and Bactrim CÉSAR drain remains in place Patient's LFTs fernando overnight 09/03 after surgery-GI was consulted GI Dr Monk performed ERCP/EUS and ERCP revealed choledocholithiasis. Now s/p extraction of stone and stent placement. No purulence noted per his op note. surgery is with oversight of advance diet - based on sensitivities will change to iv rocephin ( can consider po cipro if needs longer course) -Does not seem to be having any pain but Tylenol is ordered as needed, discontinue morphine as it may contribute to worsening mental status -pt is having diarrhea, and incontinence will reduce Bowel regimen previously with senna, MiraLAX as needed, milk of magnesia as needed, docusate twice daily Appreciate gen surg and GI consultations Of note, he had lymphadenopathy noted in the region of the celiac region, peripancreatic region, and su hepatis region largest measuring 22 mm-GI recommends repeat CT scan abdomen/pelvis with contrast in 5 weeks for follow-up, however will plan these future workups based on family discussion of goals of care (2) Sepsis: 2nd gangrenous gall bladder. Now resolved (3) Choledocholithiasis: as noted on ERCP as above see above. normalized with exception of alk phos (4) Acute metabolic encephalopathy: suspect 2nd to severe sepsis, recent anesthesia, and acute respiratory acidosis. Ammonia and lactate levels were normal, TSH mildly elevated at 6 Now much improved status post ERCP, recovery from anesthesia, and with BiPAP to correct respiratory acidosis continue IV antibiotics and supportive care as above. Continue to HOLD melatonin, seroquel and remeron At baseline he is nonverbal as per and she is open to goals of care discussion as he has had prehospital progression of his dementia (5) Acute respiratory failure with hypercapnia: resolved after appropriate medications held (6) Acute kidney injury: resolved 2nd to sepsis. Continue holding ARB (7) Hypertension: Blood pressures are acceptable -Continue to hold ARB (8) Hypothyroidism: TSH mildly elevated here at 6.04 but in the setting of acute illness cont synthroid at current home dose Follow TFTs as an outpatient (9) Frontotemporal dementia: Severe and progressive, resides in memory care at [facility]. Is nonverbal at baseline it is suspected that his depakote, seroquel, etc is for behavior related to his dementia. depakote level at admission was 17. DNR status. Prolonged visit today with discussions with and daughter who is the stepdaughter. Eventual disposition is going to depend upon whether [facility] will take him back, hospice status versus needing to be placed in a [facility] for palliative hospice care patient's hospice status really revolves around his progressive frontal lobe dementia. He is physically quite strong but he is resistant to direction and instruction for physical therapy which is a difficult to place him in a personal care situation. He does have the physical ability to do things such as walking some self hygiene however his frontal lobe dementia makes him have challenges understanding direction and taking direction. Overall I spent approximately 90 minutes in discussions with his Ca, his daughter Juan M, palliative care services and nursing staff (10) Esophagitis: as seen on ERCP PPI daily Dr Monk recommends oral PPI x 1month after d/c. (11) DVT prophylaxis: SCDs updated at the bedside 09/04/20 Disposition-continued stay on medical/surgical floor Admission and Anticipated Discharge Date Admission Date: August 31, 2020 Subjective pt has frontal lobe dementia, remains at the bedside daily, is mostly interested in patient returning to [facility], but his mobility status is not been assesed as he has been resistent to ambulation, unclear as of why as pt is not loquacious given his frontal lobe dementia Review of Systems Review of Systems: Patient appears restless but comfortable not significantly uncomfortable when examining his abdomen Physical Exam Physical Exam: The patient appeared well nourished and normally developed. Vital signs as documented. Head exam is normocephalic atraumatic no scleral icterus Neck is without JVD, thyromegaly, or carotid bruits. Lungs are clear to auscultation, no focal loss of breath sounds Cardiac exam, Rhythm is regular.. No murmurs, rubs or gallops. Abdominal exam reveals normal bowel sounds,seems tender to exam, still with drai n in place Extremities are nonedematous and both pedal pulses are present Neurologic exam is alert, no focal loss of strength or sensation Skin is without bruises or rashes Psychologically is with concerns for progressive dementia. Results & Data Results & Data ([facility]) Vital Signs (Past 12 Hours) Vital Signs Temp Pulse Resp BP Pulse Ox 09/06/20 16:26 99.1 F 85 18 143/97 H 96 09/06/20 07:51 97.2 F L 84 18 151/97 H 96 PG Care Time/CCT Total # of Minutes Spent Total Time Spent with Patient: Total time spent is greater than 50% in coordination of care (as documented) at patient's floor/unit and/or counseling patient: Coding Level of Care Code 35016 Subseq Hosp Care Lvl 2 Diagnoses Acute gangrenous cholecystitis K81.0 Sepsis A41.9 Choledocholithiasis K80.50 Acute metabolic encephalopathy G93.41 Acute respiratory failure with hypercapnia J96.02 Acute kidney injury N17.9 Hypertension I10 Hypertension type: unspecified Hypothyroidism E03.9 Hypothyroidism type: unspecified Frontotemporal dementia G31.09; F02.80 Esophagitis K20.90 DVT prophylaxis Z29.9 (1) Hypertension Hypertension type: unspecified Qualified Code(s): I10 - Essential (primary) hypertension (2) Hypothyroidism Hypothyroidism type: unspecified Qualified Code(s): E03.9 - Hypothyroidism, unspecified
[2020-09-06] MEDS: ACETAMINOPHEN 500 MG TAB PO SCH (21:38)
[2020-09-07] MEDS: LEVOTHYROXINE SODIUM 88 MCG TABLET PO SCH (06:14)
[2020-09-07] MEDS: DIVALPROEX SODIUM SPRINKLE 125 MG CAP PO SCH ×2 (08:40→20:17)
[2020-09-07] MEDS: ADVANCED PROBIOTIC 1250 MG CAPSULE PO SCH (08:41)
[2020-09-07] MEDS: PANTOprazole 40 MG TAB PO SCH (08:41)
[2020-09-07] MEDS: MEMANTINE HCL 10 MG TAB PO SCH ×2 (08:41→20:17)
[2020-09-07] MEDS: ESCITALOPRAM OXALATE 10 MG TAB PO SCH (08:41)
[2020-09-07] MEDS: VITAMIN B COMPLEX TAB PO SCH (08:42)
[2020-09-07] MEDS: ACETAMINOPHEN 500 MG TAB PO SCH ×3 (08:42→20:18)
[2020-09-07] MEDS: FEBUXOSTAT 40 MG TABLET PO SCH (08:42)
[2020-09-07] MEDS: CHOLECALCIFEROL 1,000 UNITS 25 MCG TAB PO SCH (08:42)
--- NOTE | 2020-09-07 10:20 | Surgery Progress Note ---
Date of Service pt is doing fine, tolerated diet, no nausea, no vomiting, no fever, CÉSAR 5 ml September 07, 2020 Assessment & Plan (1) Acute cholecystitis: pt is 60 year-old male who presents to [facility] with 3 days history abdominal pain, IMP: acute cholecystitis, Plan, I recommend to do laparoscopic cholecystectomy, possible open or cholangiogram, D/w benefits, risk sand alternatives of the surgery, the risks - infection, bleeding, injury CBD, pt's family member understood, she agrees with the surgery, I answered all questions, NPO after MN 09/02/2020 1:07PM pod 1 doing fine regular diet, continue iv antibiotic, 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 weekend, thanks, 09/05/2020 12:00PM doing fine, regular diet, consult returned case inspector for discharge plan, possible discharge tomorrow, will F/u 09/06/2020 12:57PM stable, discharge plan, the CÉSAR is 10 ml, may pull out CÉSAR tomorrow, will F/U 09/07/2020 10:19AM i pulled CÉSAR drainage today, pt can be discharged he can take a shower tomorrow, F/U nm in 2 weeks, (2) Abdominal pain: Admission and Anticipated Discharge Date Admission Date: August 31, 2020 Supervising Physician Co-Signing Physician Notes I performed a history and physical examination of the patient today, including specifically on physical exam - soft abdomen. I have discussed the patient's management with the advanced practitioner. Please refer to the nurse practitioner's note for the documented findings and plan of care. EUS/ERCP today. Subjective pt has frontal lobe dementia, remains at the bedside daily, is mostly interested in patient returning to [facility], but his mobility status is not been assesed as he has been resistent to ambulation, unclear as of why as pt is not loquacious given his frontal lobe dementia Review of Systems Constitutional: as per Subjective / HPI dementia Eyes: as per Subjective / HPI Ear, Nose, Mouth, Throat: as per Subjective / HPI Respiratory: as per Subjective / HPI Cardiovascular: as per Subjective / HPI Additional Comments: HTN Gastrointestinal: as per Subjective / HPI abdominal pain Genitourinary: + as per Subjective / HPI Musculoskeletal: as per Subjective / HPI Integumentary: as per Subjective / HPI Neurologic: as per Subjective / HPI Psychiatric: as per Subjective / HPI Endocrine: as per Subjective / HPI hypothyroidism Physical Exam Constitutional: WD/WN, vitals as above well developed and well nourished Eyes: PERRL, conjunctivae normal, anicteric sclerae ENMT: external ear and nose normal, oropharynx normal Neck: trachea midline, no thyromegaly Respiratory: normal respiratory effort, lungs clear to auscultation Cardiovascular: RRR, no murmur, no edema Rate/Rhythm: regular rate and regular rhythm Gastrointestinal (Abdomen): normal bowel sounds, soft, nontender, no hepatosplenomegaly Percussion/Palpation: abdomen soft all incisions heal well, Musculoskeletal: no cyanosis or clubbing, extremities motor strength 5/5 Skin: no rashes, warm and dry Neurologic: awake Psychiatric: Orientation: + guarded Results & Data ([facility]) Vital Signs (Past 12 Hours) Vital Signs Temp Pulse Resp BP BP Pulse Ox 09/07/20 07:40 36.8 C 94 H 18 123/94 94 09/06/20 23:02 37.1 C 79 20 140/86 98 (1) Abdominal pain Abdominal location: generalized Qualified Code(s): R10.84 - Generalized abdominal pain
--- NOTE | 2020-09-07 13:31 | Palliative Care Progress Note ---
Date of Service September 07, 2020 Assessment & Plan (1) Palliative care encounter: I met with his and we discussed her goals. She and Ki have talked about this in the past and he was clear that he would not want life prolonging interventions. She has considered SNF for rehab but realizes that his rehab potential is limited and wonders to what end we would be aiming. She feels that comfort directed approach is best route for him at this point and is most consistent with his previously expressed wishes. Her preference would be to return to his [facility] where he is familiar with the staff and routine. He could have hospice care at the facility to provide additional support. If that is not possible, then she would prefer SNF with hospice care. She has completed POLST form for DNR, comfort measures only, avoid rehospitalization. (2) Frontotemporal dementia: (3) Acute gangrenous cholecystitis: Admission and Anticipated Discharge Date Admission Date: August 31, 2020 Subjective Eating lunch. Requires assistance with feeding by his who is at bedside. He is cooperative but nonverbal. No facial grimace at rest. has noted facial grimace with movement. Review of Systems Review of Systems: Unobtainable due to cognitive status [place] Symptom Assessment Scale Pain 0/3 PainAD Physical Exam Constitutional: no acute distress Respiratory: normal respiratory effort; no labored breathing Skin: no rashes, warm and dry Neurologic: nonverbal Psychiatric: Orientation: alert Results & Data ([facility]) Vital Signs (Past 12 Hours) Vital Signs Temp Pulse Resp BP Pulse Ox 09/07/20 07:40 98.2 F 94 H 18 123/94 94 PG Care Time/CCT Total # of Minutes Spent Total Time Spent with Patient: Total time spent is greater than 50% in coordination of care (as documented) at patient's floor/unit and/or counseling patient:38 minutes with more than 50% spent on discussing goals of care, prognosis and symptom management Coding Level of Care Code 43263 Subseq Hosp Care Lvl 3 Diagnoses Palliative care encounter Z51.5 Frontotemporal dementia G31.09; F02.80 Acute gangrenous cholecystitis K81.0
[2020-09-07] MEDS: cefTRIAXone SODIUM 2,000 MG in DEXTROSE 5% 50 ML IV SCH (14:16)
--- NOTE | 2020-09-07 17:27 | Hospitalist Progress Note ---
Date of Service September 07, 2020 Assessment & Plan (1) Acute gangrenous cholecystitis: s/p subtotal lap lucho on 09/01. Gall bladder was severely gangrenous and diseased at time of surgery. Intra-op culture growing E. coli resistant to ampicillin, ampicillin/sulbactam, gentamicin, and Bactrim CÉSAR drain to be removed per Dr Leblanc Patient's LFTs fernando overnight 09/03 after surgery-GI was consulted GI Dr Monk performed ERCP/EUS and ERCP revealed choledocholithiasis. Now s/p extraction of stone and stent placement. No purulence noted per his op note. surgery is with oversight of advance diet - based on sensitivities will change to iv rocephin ( can consider po cipro if needs longer course) -Does not seem to be having any pain but Tylenol is ordered as needed, discontinue morphine as it may contribute to worsening mental status still incontinence of bowel, this has been an issue previously Of note, he had lymphadenopathy noted in the region of the celiac region, peripancreatic region, and su hepatis region largest measuring 22 mm-GI recommends repeat CT scan abdomen/pelvis with contrast in 5 weeks for follow-up, however will plan these future workups based on family discussion of goals of care, family is considering palliative care and this may forgo this follow up (2) Sepsis: 2nd gangrenous gall bladder. Now resolved (3) Choledocholithiasis: as noted on ERCP as above see above. (4) Acute metabolic encephalopathy: suspect 2nd to severe sepsis, recent anesthesia, and acute respiratory acidosis. Ammonia and lactate levels were normal, TSH mildly elevated at 6 resolved Continue to HOLD melatonin, seroquel and remeron At baseline he is nonverbal as per and she is open to goals of care discussion as he has had prehospital progression of his dementia (5) Acute respiratory failure with hypercapnia: resolved after appropriate medications held (6) Acute kidney injury: resolved 2nd to sepsis. Continue holding ARB (7) Hypertension: Blood pressures are acceptable -Continue to hold ARB (8) Hypothyroidism: TSH mildly elevated here at 6.04 but in the setting of acute illness cont synthroid at current home dose Follow TFTs as an outpatient (9) Frontotemporal dementia: Severe and progressive, resides in memory care at [facility]. Is nonverbal at baseline it is suspected that his depakote, seroquel, etc is for behavior related to his dementia. depakote level at admission was 17. DNR status. Prolonged visit today with discussions with and daughter who is the s tepdaughter. now with personal snf not being able to accomidate this pts needs will consider snf placement and eventual transition to palliative care (10) Esophagitis: as seen on ERCP PPI daily Dr Monk recommends oral PPI x 1month after d/c. (11) DVT prophylaxis: SCDs Disposition-continued stay on medical/surgical floor, look to place in snf Admission and Anticipated Discharge Date Admission Date: August 31, 2020 Subjective pt has frontal lobe dementia, remains at the bedside daily, is mostly interested in [facility], but his mobility status is not been assesed as he has been resistent to ambulation, unclear as of why as pt is not loquacious given his frontal lobe dementia Review of Systems Review of Systems: Patient appears restless but comfortable not significantly uncomfortable when examining his abdomen Physical Exam Physical Exam: The patient appeared well nourished and normally developed. Vital signs as documented. Head exam is normocephalic atraumatic no scleral icterus Neck is without JVD, thyromegaly, or carotid bruits. Lungs are clear to auscultation, no focal loss of breath sounds Cardiac exam, Rhythm is regular.. No murmurs, rubs or gallops. Abdominal exam reveals normal bowel sounds,seems tender to exam, still with drain in place Extremities are nonedematous and both pedal pulses are present Neurologic exam is alert, no focal loss of strength or sensation Skin is without bruises or rashes Psychologically is with concerns for progressive dementia. Results & Data Results & Data ([facility]) Vital Signs (Past 12 Hours) Vital Signs Temp Pulse Resp BP Pulse Ox 09/07/20 16:18 98.1 F 86 18 119/74 92 09/07/20 07:40 98.2 F 94 H 18 123/94 94 PG Care Time/CCT Total # of Minutes Spent Total Time Spent with Patient: Total time spent is greater than 50% in coordination of care (as documented) at patient's floor/unit and/or counseling patient: Coding Level of Care Code 55750 Subseq Hosp Care Lvl 2 Diagnoses Acute gangrenous cholecystitis K81.0 Sepsis A41.9 Choledocholithiasis K80.50 Acute metabolic encephalopathy G93.41 Acute respiratory failure with hypercapnia J96.02 Acute kidney injury N17.9 Hypertension I10 Hypertension type: unspecified Hypothyroidism E03.9 Hypothyroidism type: unspecified Frontotemporal dementia G31.09; F02.80 Esophagitis K20.90 DVT prophylaxis Z29.9 (1) Hypertension Hypertension type: unspecified Qualified Code(s): I10 - Essential (primary) hypertension (2) Hypothyroidism Hypothyroidism type: unspecified Qualified Code(s): E03.9 - Hypothyroidism, unspecified
[2020-09-07] MEDS: hydrOXYzine HCl 25 MG TAB PO PRN (20:29)
[2020-09-08] MEDS: LEVOTHYROXINE SODIUM 88 MCG TABLET PO SCH (05:31)
[2020-09-08] MEDS: DIVALPROEX SODIUM SPRINKLE 125 MG CAP PO SCH ×2 (08:37→20:02)
[2020-09-08] MEDS: FEBUXOSTAT 40 MG TABLET PO SCH (08:37)
[2020-09-08] MEDS: PANTOprazole 40 MG TAB PO SCH (08:38)
[2020-09-08] MEDS: CHOLECALCIFEROL 1,000 UNITS 25 MCG TAB PO SCH (08:38)
[2020-09-08] MEDS: MEMANTINE HCL 10 MG TAB PO SCH ×2 (08:38→20:02)
[2020-09-08] MEDS: VITAMIN B COMPLEX TAB PO SCH (08:39)
[2020-09-08] MEDS: ESCITALOPRAM OXALATE 10 MG TAB PO SCH (08:39)
[2020-09-08] MEDS: ACETAMINOPHEN 500 MG TAB PO SCH ×3 (08:39→20:01)
[2020-09-08] MEDS: ADVANCED PROBIOTIC 1250 MG CAPSULE PO SCH (09:20)
--- NOTE | 2020-09-08 10:55 | Palliative Care Progress Note ---
Date of Service September 08, 2020 Assessment & Plan (1) Palliative care encounter: I met with Ki at his bedside. He was resting with his eyes closed in no apparent distress. Disposition remains unclear due to bed availability, etc. [facility] is still considering receiving Ki back with Hospice services, but I did reach out and speak to Ca who has decided that she would like him to be transferred to a SNF with Hospice services in place when he arrives. She knows that [facility] may accept him to return; however, she recognizes that he will continually progressively worsen and eventually would likely require SNF. She would like to make this transition now as it has been so emotionally unsettling for her and is unsure she can go through the process again at a later date. This is understandably hard to process as her is so young to have end-stage cognitive disease. Case management is working on disposition and I informed her that Ca would like to move forward with choosing a Hospice agency. Evelyn in case management mentioned that a bed may be available as soon as at [facility]. For now, the patient does not have symptom management needs and a POLST has been completed indicating: DNR/DNI, comfort measures only, avoid rehospitalization, no artificial nutrition/hydration. Palliative Care will sign off at this time; however, should additional needs arise or if symptoms require management, please do not hesitate to contact us ([phone]). Thank you for allowing us to participate in his care. (2) Frontotemporal dementia: (3) Acute gangrenous cholecystitis: Admission and Anticipated Discharge Date Admission Date: August 31, 2020 Subjective patient resting in no apparent distress Patient unreliable for ROS due to severe dementia Review of Systems Review of Systems: Unobtainable due to cognitive status Physical Exam Constitutional: well nourished, + ill appearing and + combative; not in distress Respiratory: normal respiratory effort, lungs clear to auscultation Auscultation: + diminished lung sounds Cardiovascular: RRR, no murmur, no edema Extremities: normal capillary refill and + edema Gastrointestinal (Abdomen): normal bowel sounds, soft, nontender, no hepatosplenomegaly Psychiatric: Orientation: alert; + not oriented x 3 Insight: + severely impaired insight Judgement: + severely impaired judgement Results & Data ([facility]) Vital Signs (Past 12 Hours) Vital Signs Temp Pulse Resp BP BP Pulse Ox 09/08/20 07:52 36.4 C L 73 16 112/75 94 09/07/20 23:24 37.2 C 73 16 123/78 98 PG Care Time/CCT Total # of Minutes Spent Total Time Spent with Patient: Total time spent is greater than 50% in coordination of care (as documented) at patient's floor/unit and/or counseling patient: 35 Coding Level of Care Code 12415 Subseq Hosp Care Lvl 3 Diagnoses Palliative care encounter Z51.5 Frontotemporal dementia G31.09; F02.80 Acute gangrenous cholecystitis K81.0 Time Spent (min) 35 Time Spent Midlevel Total time spent 35 minutes with > 50% of that time spent assessing the patient, discussing goals of care and collaborating with the IDT
[2020-09-08] MEDS: cefTRIAXone SODIUM 2,000 MG in DEXTROSE 5% 50 ML IV SCH (14:06)
--- NOTE | 2020-09-08 16:49 | Hospitalist Progress Note ---
Date of Service September 08, 2020 Assessment & Plan (1) Acute gangrenous cholecystitis: s/p subtotal lap lucho on 09/01. Gall bladder was severely gangrenous and diseased at time of surgery. Intra-op culture growing E. coli resistant to ampicillin, ampicillin/sulbactam, gentamicin, and Bactrim CÉSAR drain to be removed per Dr Leblanc Patient's LFTs fernando overnight 09/03 after surgery-GI was consulted GI Dr Monk performed ERCP/EUS and ERCP revealed choledocholithiasis. Now s/p extraction of stone and stent placement. No purulence noted per his op note. surgery is with oversight of advance diet - based on sensitivities of gall bladder with e coli resistent to pcn, changed to iv rocephin -Does not seem to be having any pain but Tylenol is ordered as needed, discontinue morphine as it may contribute to worsening mental status still incontinence of bowel, this has been an issue previously Of note, he had lymphadenopathy noted in the region of the celiac region, peripancreatic region, and su hepatis region largest measuring 22 mm-GI recommends repeat CT scan abdomen/pelvis with contrast in 5 weeks for follow-up, however will plan these future workups based on family discussion of goals of care, family is considering palliative care and this may forgo this follow up (2) Sepsis: 2nd gangrenous gall bladder. Now resolved (3) Choledocholithiasis: as noted on ERCP as above see above. (4) Acute metabolic encephalopathy: suspect 2nd to severe sepsis, recent anesthesia, and acute respiratory acidosis. Ammonia and lactate levels were normal, TSH mildly elevated at 6 resolved Continue to HOLD melatonin, seroquel and remeron At baseline he is nonverbal as per and she is open to goals of care discussion as he has had prehospital progression of his dementia (5) Acute respiratory failure with hypercapnia: resolved after appropriate medications held (6) Acute kidney injury: resolved 2nd to sepsis. Continue holding ARB (7) Hypertension: Blood pressures are acceptable -Continue to hold ARB (8) Hypothyroidism: TSH mildly elevated here at 6.04 but in the setting of acute illness cont synthroid at current home dose Follow TFTs as an outpatient (9) Frontotemporal dementia: Severe and progressive, resides in memory care at [facility]. Is nonverbal at baseline it is suspected that his depakote, seroquel, etc is for behavior related to his dementia. depakote level at admission was 17. DNR status. Prolonged visit today with discussions with and daughter who is the stepdaughter. now with personal fdc not being able to accomidate this pts needs will consider snf placement and eventual transition to palliative care (10) Esophagitis: as seen on ERCP PPI daily Dr Monk recommends oral PPI x 1month after d/c. (11) DVT prophylaxis: SCDs Disposition-continued stay on medical/surgical floor, look to place in snf Admission and Anticipated Discharge Date Admission Date: August 31, 2020 Subjective patient resting in no apparent distress Patient unreliable for ROS due to severe dementia was laying on side and did roll over to greet me, then did not answer any additional questions Review of Systems Review of Systems: Patient appears restless but comfortable not significantly uncomfortable when examining his abdomen Physical Exam Physical Exam: The patient appeared well nourished and normally developed. Vital signs as documented. Head exam is normocephalic atraumatic no scleral icterus Neck is without JVD, thyromegaly, or carotid bruits. Lungs are clear to auscultation, no focal loss of breath sounds Cardiac exam, Rhythm is regular.. No murmurs, rubs or gallops. Abdominal exam reveals normal bowel sounds,seems tender to exam, still with drain in place Extremities are nonedematous and both pedal pulses are present Neurologic exam is alert, no focal loss of strength or sensation Skin is without bruises or rashes Psychologically is with concerns for progressive dementia. Results & Data Results & Data ([facility]) Vital Signs (Past 12 Hours) Vital Signs Temp Pulse Resp BP Pulse Ox 09/08/20 15:21 98.2 F 75 20 112/78 92 09/08/20 07:52 97.5 F L 73 16 112/75 94 PG Care Time/CCT Total # of Minutes Spent Total Time Spent with Patient: Total time spent is greater than 50% in coordination of care (as documented) at patient's floor/unit and/or counseling patient: Coding Level of Care Code 44134 Subseq Hosp Care Lvl 2 Diagnoses Acute gangrenous cholecystitis K81.0 Sepsis A41.9 Choledocholithiasis K80.50 Acute metabolic encephalopathy G93.41 Acute respiratory failure with hypercapnia J96.02 Acute kidney injury N17.9 Hypertension I10 Hypertension type: unspecified Hypothyroidism E03.9 Hypothyroidism type: unspecified Frontotemporal dementia G31.09; F02.80 Esophagitis K20.90 DVT prophylaxis Z29.9 (1) Hypertension Hypertension type: unspecified Qualified Code(s): I10 - Essential (primary) hypertension (2) Hypothyroidism Hypothyroidism type: unspecified Qualified Code(s): E03.9 - Hypothyroidism, unspecified
[2020-09-09] MEDS: LEVOTHYROXINE SODIUM 88 MCG TABLET PO SCH (05:48)
[2020-09-09] MEDS: ESCITALOPRAM OXALATE 10 MG TAB PO SCH (09:11)
[2020-09-09] MEDS: DIVALPROEX SODIUM SPRINKLE 125 MG CAP PO SCH ×2 (09:11→21:05)
[2020-09-09] MEDS: MEMANTINE HCL 10 MG TAB PO SCH ×2 (09:11→21:05)
[2020-09-09] MEDS: PANTOprazole 40 MG TAB PO SCH (09:12)
[2020-09-09] MEDS: ADVANCED PROBIOTIC 1250 MG CAPSULE PO SCH (09:12)
[2020-09-09] MEDS: ACETAMINOPHEN 500 MG TAB PO SCH ×3 (09:13→21:05)
[2020-09-09] MEDS: VITAMIN B COMPLEX TAB PO SCH (09:13)
[2020-09-09] MEDS: FEBUXOSTAT 40 MG TABLET PO SCH (09:13)
[2020-09-09] MEDS: CHOLECALCIFEROL 1,000 UNITS 25 MCG TAB PO SCH (09:14)
[2020-09-09] MEDS: cefTRIAXone SODIUM 2,000 MG in DEXTROSE 5% 50 ML IV SCH (13:51)
--- NOTE | 2020-09-09 18:22 | Hospitalist Progress Note ---
Date of Service September 09, 2020 Assessment & Plan (1) Acute gangrenous cholecystitis: s/p subtotal lap lucho on 09/01. Gall bladder was severely gangrenous and diseased at time of surgery. Intra-op culture growing E. coli resistant to ampicillin, ampicillin/sulbactam, gentamicin, and Bactrim CÉSAR drain to be removed per Dr Leblanc Patient's LFTs fernando overnight 09/03 after surgery-GI was consulted GI Dr Monk performed ERCP/EUS and ERCP revealed choledocholithiasis. Now s/p extraction of stone and stent placement. No purulence noted per his op note. surgery is with oversight of advance diet - based on sensitivities of gall bladder with e coli resistent to pcn, changed to iv rocephin -Does not seem to be having any pain but Tylenol is ordered as needed, discontinue morphine as it may contribute to worsening mental status still incontinence of bowel, this has been an issue previously Of note, he had lymphadenopathy noted in the region of the celiac region, peripancreatic region, and su hepatis region largest measuring 22 mm-GI recommends repeat CT scan abdomen/pelvis with contrast in 5 weeks for follow-up, however will plan these future workups based on family discussion of goals of care, family is considering palliative care and this may forgo this follow up (2) Sepsis: 2nd gangrenous gall bladder. Now resolved (3) Choledocholithiasis: as noted on ERCP as above see above. (4) Acute metabolic encephalopathy: suspect 2nd to severe sepsis, recent anesthesia, and acute respiratory acidosis. Ammonia and lactate levels were normal, TSH mildly elevated at 6 resolved Continue to HOLD melatonin, seroquel and remeron At baseline he is nonverbal as per and she is open to goals of care discussion as he has had prehospital progression of his dementia (5) Acute respiratory failure with hypercapnia: resolved after appropriate medications held (6) Acute kidney injury: resolved 2nd to sepsis. Continue holding ARB (7) Hypertension: Blood pressures are acceptable -Continue to hold ARB (8) Hypothyroidism: TSH mildly elevated here at 6.04 but in the setting of acute illness cont synthroid at current home dose Follow TFTs as an outpatient (9) Frontotemporal dementia: Severe and progressive, resides in memory care at [facility]. Is nonverbal at baseline it is suspected that his depakote, seroquel, etc is for behavior related to his dementia. depakote level at admission was 17. DNR status. Prolonged visit today with discussions with and daughter who is the stepdaughter. now with personal shelter not being able to accomidate this pts needs will consider snf placement and eventual transition to palliative care (10) Esophagitis: as seen on ERCP PPI daily Dr Monk recommends oral PPI x 1month after d/c. (11) DVT prophylaxis: SCDs Disposition-continued stay on medical/surgical floor, look to place in snf Admission and Anticipated Discharge Date Admission Date: August 31, 2020 Subjective patient is resting in no apparent distress Patient unreliable for ROS due to severe dementia was laying on side and did roll over to greet me, then did not answer any additional questions Review of Systems Review of Systems: Patient appears restless but comfortable not significantly uncomfortable when examining his abdomen Physical Exam Physical Exam: The patient appeared well nourished and normally developed. Vital signs as documented. Head exam is normocephalic atraumatic no scleral icterus Neck is without JVD, thyromegaly, or carotid bruits. Lungs are clear to auscultation, no focal loss of breath sounds Cardiac exam, Rhythm is regular.. No murmurs, rubs or gallops. Abdominal exam reveals normal bowel sounds,seems tender to exam, still with drain in place Extremities are nonedematous and both pedal pulses are present Neurologic exam is alert, no focal loss of strength or sensation Skin is without bruises or rashes Psychologically is with concerns for progressive dementia. Results & Data Results & Data ([facility]) Vital Signs (Past 12 Hours) Vital Signs Temp Pulse Resp BP BP Pulse Ox 09/09/20 15:47 97.7 F 95 H 16 133/80 97 09/09/20 07:58 98.1 F 74 18 122/84 98 PG Care Time/CCT Total # of Minutes Spent Total Time Spent with Patient: Total time spent is greater than 50% in coordination of care (as documented) at patient's floor/unit and/or counseling patient: Coding Level of Care Code 05743 Subseq Hosp Care Lvl 2 Diagnoses Acute gangrenous cholecystitis K81.0 Sepsis A41.9 Choledocholithiasis K80.50 Acute metabolic encephalopathy G93.41 Acute respiratory failure with hypercapnia J96.02 Acute kidney injury N17.9 Hypertension I10 Hypertension type: unspecified Hypothyroidism E03.9 Hypothyroidism type: unspecified Frontotemporal dementia G31.09; F02.80 Esophagitis K20.90 DVT prophylaxis Z29.9 (1) Hypertension Hypertension type: unspecified Qualified Code(s): I10 - Essential (primary) hypertension (2) Hypothyroidism Hypothyroidism type: unspecified Qualified Code(s): E03.9 - Hypothyroidism, unspecified
[2020-09-10] MEDS: LEVOTHYROXINE SODIUM 88 MCG TABLET PO SCH (06:20)
[2020-09-10] MEDS: VITAMIN B COMPLEX TAB PO SCH (09:20)
[2020-09-10] MEDS: PANTOprazole 40 MG TAB PO SCH (09:20)
[2020-09-10] MEDS: DIVALPROEX SODIUM SPRINKLE 125 MG CAP PO SCH ×2 (09:20→22:17)
[2020-09-10] MEDS: ADVANCED PROBIOTIC 1250 MG CAPSULE PO SCH (09:20)
[2020-09-10] MEDS: FEBUXOSTAT 40 MG TABLET PO SCH (09:20)
[2020-09-10] MEDS: ACETAMINOPHEN 500 MG TAB PO SCH ×3 (09:21→22:17)
[2020-09-10] MEDS: CHOLECALCIFEROL 1,000 UNITS 25 MCG TAB PO SCH (09:21)
[2020-09-10] MEDS: MEMANTINE HCL 10 MG TAB PO SCH ×2 (09:21→22:16)
[2020-09-10] MEDS: hydrOXYzine HCl 25 MG TAB PO PRN (09:29)
[2020-09-10] MEDS: ESCITALOPRAM OXALATE 10 MG TAB PO SCH (09:30)
[2020-09-10] MEDS: cefTRIAXone SODIUM 2,000 MG in DEXTROSE 5% 50 ML IV SCH (14:08)
[2020-09-10] MEDS: QUEtiapine FUMARATE 100 MG TABLET PO SCH (22:42)
[2020-09-11] MEDS: LEVOTHYROXINE SODIUM 88 MCG TABLET PO SCH (06:38)
[2020-09-11] MEDS: ESCITALOPRAM OXALATE 10 MG TAB PO SCH (07:59)
[2020-09-11] MEDS: CHOLECALCIFEROL 1,000 UNITS 25 MCG TAB PO SCH (07:59)
[2020-09-11] MEDS: MEMANTINE HCL 10 MG TAB PO SCH ×2 (07:59→20:35)
[2020-09-11] MEDS: QUEtiapine FUMARATE 100 MG TABLET PO SCH ×3 (07:59→20:35)
[2020-09-11] MEDS: DIVALPROEX SODIUM SPRINKLE 125 MG CAP PO SCH ×2 (07:59→20:34)
[2020-09-11] MEDS: ADVANCED PROBIOTIC 1250 MG CAPSULE PO SCH (07:59)
[2020-09-11] MEDS: FEBUXOSTAT 40 MG TABLET PO SCH (07:59)
[2020-09-11] MEDS: VITAMIN B COMPLEX TAB PO SCH (07:59)
[2020-09-11] MEDS: ACETAMINOPHEN 500 MG TAB PO SCH ×3 (07:59→22:23)
[2020-09-11] MEDS: PANTOprazole 40 MG TAB PO SCH (07:59)
--- NOTE | 2020-09-11 09:17 | Hospitalist Progress Note ---
Date of Service September 11, 2020 Assessment & Plan (1) Acute gangrenous cholecystitis: s/p subtotal lap lucho on 09/01. Gall bladder was severely gangrenous and diseased at time of surgery. Intra-op culture growing E. coli resistant to ampicillin, ampicillin/sulbactam, gentamicin, and Bactrim CÉSAR drain to be removed per Dr Leblanc Patient's LFTs fernando overnight 09/03 after surgery-GI was consulted GI Dr Monk performed ERCP/EUS and ERCP revealed choledocholithiasis. Now s/p extraction of stone and stent placement. No purulence noted per his op note. surgery has advanced - based on sensitivities of gall bladder with e coli resistent to pcn, changed to iv rocephin, completed course -Does not seem to be having any pain but Tylenol is ordered as needed, discontinue morphine as it may contribute to worsening mental status still incontinence of bowel, this has been an issue previously Of note, he had lymphadenopathy noted in the region of the celiac region, peripancreatic region, and su hepatis region largest measuring 22 mm-GI recommends repeat CT scan abdomen/pelvis with contrast in 5 weeks for follow-up, however will plan these future workups based on family discussion of goals of care, family is considering palliative care and this may forgo this follow up (2) Sepsis: 2nd gangrenous gall bladder. Now resolved (3) Choledocholithiasis: as noted on ERCP as above see above. (4) Acute metabolic encephalopathy: suspect 2nd to severe sepsis, recent anesthesia, and acute respiratory acidosis. Ammonia and lactate levels were normal, TSH mildly elevated at 6 resolved Continue to HOLD melatonin, seroquel and remeron At baseline he is nonverbal as per and she is open to goals of care discussion as he has had prehospital progression of his dementia, is now supportive of snf as pt cannot be supported in [facility] (5) Acute respiratory failure with hypercapnia: resolved after appropriate medications held (6) Acute kidney injury: resolved 2nd to sepsis. Continue holding ARB (7) Hypertension: Blood pressures are acceptable -Continue to hold ARB (8) Hypothyroidism: TSH mildly elevated here at 6.04 but in the setting of acute illness cont synthroid at current home dose Follow TFTs as an outpatient (9) Frontotemporal dementia: Severe and progressive, previously resides in memory care at [facility]. Is nonverbal at baseline it is suspected that his depakote, seroquel, etc is for behavior related to his dementia. depakote level at admission was 17. DNR status. discussions with and daughter who is the stepdaughter. now with personal fpc not being able to accomidate this pts needs will consider snf placement and eventual transition to palliative care (10) Esophagitis: as seen on ERCP PPI daily Dr Monk recommends oral PPI x 1month after d/c. (11) DVT prophylaxis: SCDs Disposition-continued stay on medical/surgical floor, look to place in snf Admission and Anticipated Discharge Date Admission Date: August 31, 2020 Subjective patient is resting in no apparent distress Patient unreliable for ROS due to severe dementia Patient seems more calm and sedate since restarting his Seroquel medication does take medication and putting Review of Systems Review of Systems: Patient appears restless but comfortable not significantly uncomfortable when examining his abdomen Physical Exam Physical Exam: The patient appeared well nourished and normally developed. Vital signs as documented. Head exam is normocephalic atraumatic no scleral icterus Neck is without JVD, thyromegaly, or carotid bruits. Lungs are clear to auscultation, no focal loss of breath sounds Cardiac exam, Rhythm is regular.. No murmurs, rubs or gallops. Abdominal exam reveals normal bowel sounds,seems tender to exam, laparoscopic sites are healing well without significant signs of infection or drainage Extremities are nonedematous and both pedal pulses are present Neurologic exam is alert he is nonverbal set for 1-2 word responses, no focal loss of strength or sensation he can spontaneously move his extremities but typically does not follow commands Skin is without bruises or rashes Psychologically is with concerns for progressive dementia. Results & Data Results & Data ([facility]) Vital Signs (Past 12 Hours) Vital Signs Temp Pulse Resp BP BP Pulse Ox 09/11/20 07:48 97.5 F L 78 16 115/78 96 09/11/20 00:13 98.6 F 76 18 131/85 98 PG Care Time/CCT Total # of Minutes Spent Total Time Spent with Patient: Total time spent is greater than 50% in coordination of care (as documented) at patient's floor/unit and/or counseling patient: Coding Level of Care Code 83587 Subseq Hosp Care Lvl 2 Diagnoses Acute gangrenous cholecystitis K81.0 Sepsis A41.9 Choledocholithiasis K80.50 Acute metabolic encephalopathy G93.41 Acute respiratory failure with hypercapnia J96.02 Acute kidney injury N17.9 Hypertension I10 Hypertension type: unspecified Hypothyroidism E03.9 Hypothyroidism type: unspecified Frontotemporal dementia G31.09; F02.80 Esophagitis K20.90 DVT prophylaxis Z29.9 (1) Hypothyroidism Hypothyroidism type: unspecified Qualified Code(s): E03.9 - Hypothyroidism, unspecified (2) Hypertension Hypertension type: unspecified Qualified Code(s): I10 - Essential (primary) hypertension
[2020-09-11] MEDS: cefTRIAXone SODIUM 2,000 MG in DEXTROSE 5% 50 ML IV SCH (13:23)
[2020-09-12] MEDS: LEVOTHYROXINE SODIUM 88 MCG TABLET PO SCH (05:13)
[2020-09-12] MEDS: CHOLECALCIFEROL 1,000 UNITS 25 MCG TAB PO SCH (09:03)
[2020-09-12] MEDS: ESCITALOPRAM OXALATE 10 MG TAB PO SCH (09:03)
[2020-09-12] MEDS: ACETAMINOPHEN 500 MG TAB PO SCH ×2 (09:03→13:53)
[2020-09-12] MEDS: QUEtiapine FUMARATE 100 MG TABLET PO SCH ×2 (09:03→13:53)
[2020-09-12] MEDS: ADVANCED PROBIOTIC 1250 MG CAPSULE PO SCH (09:03)
[2020-09-12] MEDS: FEBUXOSTAT 40 MG TABLET PO SCH (09:03)
[2020-09-12] MEDS: MEMANTINE HCL 10 MG TAB PO SCH (09:03)
[2020-09-12] MEDS: VITAMIN B COMPLEX TAB PO SCH (09:03)
[2020-09-12] MEDS: DIVALPROEX SODIUM SPRINKLE 125 MG CAP PO SCH (09:03)
[2020-09-12] MEDS: PANTOprazole 40 MG TAB PO SCH (09:03)
--- NOTE | 2020-09-12 12:53 | Discharge Summary ---
Date of Service September 12, 2020 Admission HPI Per Admitting Provider Ki Lozano is a 60 year old male with frontotemporal dementia, hypothyroidism who presents from a locked memory care unit ([facility]) due to a 2 day history of abdominal pain, decreased oral intake and increased lethargy. Unable to get any history from patient due to severe frontotemporal dementia. His baseline is non-verbal but is ambulatory without assistance. at bedside but she has not seen him since January due to the current pandemic. She denies he has any history cardiovascular disease. Admission Exam Per Admitting Provider Ki Lozano is a 60 year old male with frontotemporal dementia, hypothyroidism who presents from a locked memory care unit ([facility]) due to a 2 day history of abdominal pain, decreased oral intake and increased lethargy. Unable to get any history from patient due to severe frontotemporal dementia. His baseline is non-verbal but is ambulatory without assistance. at bedside but she has not seen him since January due to the current pandemic. She denies he has any history cardiovascular disease. Principal Diagnosis cholecystitis Discharge Exam Constitutional WD/WN, vitals as above Respiratory normal respiratory effort, lungs clear to auscultation Cardiovascular RRR, no murmur, no edema Gastrointestinal (Abdomen) normal bowel sounds, soft, nontender, no hepatosplenomegaly Neurologic moves head and mutters but doesn't open eyes or interact Discharge Data Allergies Allergy/AdvReac Type Severity Reaction Status Date / Time No Known Allergies Allergy Verified 08/31/20 16:52 Consultations 08/31/20 17:42 ED Decision to Admit Stat 08/31/20 19:46 Consult General Surgery Routine 09/02/20 13:10 Consult Gastroenterology Routine 09/04/20 13:20 Consult Palliative Care Routine 09/05/20 11:58 Consult Case Management - Discharge Planning Routine Procedures Performed Operation Date: 09/01/20 08:10 Actual Procedures p Laparoscopic subtotal Cholecystectomy(Not Applicable) - Kentrell Leblanc MD Operation Date: 09/02/20 16:15 Actual Procedures p Endoscopic Retrograde Cholangiopancreatogram(Not Applicable) - Franki Monk MD s Endoscopic Ultrasonography Upper;(Not Applicable) - Franki Monk MD s Esophagogastroduodenoscopy(Not Applicable) - Franki Monk MD Ordered Studies 08/31/20 15:40 CT abd pelvis IV con only Stat 09/02/20 [place] ERCP biliary ductal Routine 09/02/20 18:46 US upper EUS PACS images Routine Hospital Course (1) Acute gangrenous cholecystitis: s/p subtotal lap lucho on 09/01. Gall bladder was severely gangrenous and diseased at time of surgery. Intra-op culture growing E. coli resistant to ampicillin, ampicillin/sulbactam, gentamicin, and Bactrim CÉSAR drain to be removed per Dr Leblanc Patient's LFTs fernando overnight 09/03 after surgery-GI was consulted GI Dr Monk performed ERCP/EUS and ERCP revealed choledocholithiasis. Now s/p extraction of stone and stent placement. No purulence noted per his op note. surgery has advanced - based on sensitivities of gall bladder with e coli resistent to pcn, changed to iv rocephin, completed course of 8 days -Does not seem to be having any pain but Tylenol is ordered as needed, discontinue morphine as it may contribute to worsening mental status still incontinence of bowel, this has been an issue previously Of note, he had lymphadenopathy noted in the region of the celiac region, peripancreatic region, and su hepatis region largest measuring 22 mm-GI recommends repeat CT scan abdomen/pelvis with contrast in 5 weeks for follow-up, however patient went home on hospice (2) Sepsis: 2nd gangrenous gall bladder. Now resolved (3) Choledocholithiasis: as noted on ERCP as above see above. (4) Acute metabolic encephalopathy: suspect 2nd to severe sepsis, recent anesthesia, and acute respiratory acidosis. Ammonia and lactate levels were normal, TSH mildly elevated at 6 resolved Continue to HOLD melatonin, seroquel and remeron At baseline he is nonverbal as per and she is open to goals of care discussion as he has had prehospital progression of his dementia, is now supportive of snf as pt cannot be supported in located within [facility] environment (5) Acute respiratory failure with hypercapnia: resolved after appropriate medications held (6) Acute kidney injury: resolved 2nd to sepsis. Continue holding ARB (7) Hypertension: Blood pressures are acceptable -Continue to hold ARB (8) Hypothyroidism: TSH mildly elevated here at 6.04 but in the setting of acute illness cont synthroid at current home dose Follow TFTs as an outpatient (9) Frontotemporal dementia: Severe and progressive, previously resides in memory care at [facility]. Is nonverbal at baseline it is suspected that his depakote, seroquel, etc is for behavior related to his dementia. depakote level at admission was 17. DNR status. (10) Esophagitis: as seen on ERCP PPI daily Dr Monk recommends oral PPI x 1month after d/c. (11) DVT prophylaxis: SCDs Total Time Total Time Spent Total Time Spent (In Minutes): greater than 30 minutes Discharge Plan Discharge Items Patient Disposition: Transfer Correction Fac Reason For Visit: ACUTE CHOLECYSTITIS Discharge Diagnosis: acute cholecystitis Activity: Resume your previous activity Non-emergency contact: Primary Care Provider Call non-emergency contact if: you have any medication questions Follow-up/Referrals: Andrae Barth [Primary Care Provider] - Diet: Regular Addtl Attending Provider Instructions: (1) Acute gangrenous cholecystitis: s/p subtotal lap lucho on 09/01. Gall bladder was severely gangrenous and diseased at time of surgery. Intra-op culture growing E. coli resistant to ampicillin, ampicillin/sulbactam, gentamicin, and Bactrim Dr Monk with gastroenterology performed ERCP/EUS and ERCP which revealed choledocholithiasis. Now s/p extraction of stone and stent placement. No purulence noted per his op note. - completed 9 days of IV ceftriaxone (2) Acute metabolic encephalopathy: Continue to HOLD home melatonin, seroquel and remeron as patient somnolent At baseline he is nonverbal as per (3) Frontotemporal dementia: Severe and progressive, previously resided in memory care at [facility]. Is nonverbal at baseline it is suspected that his depakote, seroquel, etc is for behavior related to his dementia. depakote level at admission was 17. (4) Esophagitis: as seen on ERCP PPI daily Dr Monk recommends oral PPI x 1month after d/c. Pending Studies at Discharge: No Stand-Alone Forms: [facility] Skilled Items Patient informed of condition?: No DNR: Yes Discharge Level of Care: Skilled Communicable Disease: No Discharge Prognosis: Deteriorating Lines: None Urinary Catheter: No Medications and DC Order Prescriptions: New pantoprazole 40 mg Tablet,Delayed Release (Dr/Ec) 40 mg PO QAM Qty: 30 RF: 0 Continued Folbee Plus 5 mg Tablet 1 tab PO DAILY RF: 0 divalproex 250 mg Tablet,Delayed Release (Dr/Ec) 250 mg PO BID RF: 0 levothyroxine 88 mcg Tablet 88 mcg PO DAILY RF: 0 docusate sodium [DOK] 100 mg Capsule 100 mg PO BID RF: 0 escitalopram oxalate 10 mg Tablet 10 mg PO DAILY RF: 0 febuxostat 40 mg Tablet 40 mg PO DAILY RF: 0 memantine 28 mg Capsule,Sprinkle,Er 24hr 28 mg PO DAILY RF: 0 sennosides [senna] 8.6 mg Tablet 8.6 mg PO Q2D RF: 0 hydroxyzine HCl 50 mg Tablet 50 mg PO Q6H PRN (Reason: Anxiety) RF: 0 quetiapine 100 mg Tablet 100 mg PO TID RF: 0 acetaminophen 650 mg Tablet Extended Release 650 mg PO TID MDD 5 TABLETS/24 HOURS PRN (Reason: Pain, Mild) RF: 0 acetaminophen 650 mg Tablet Extended Release 1,200 mg PO TID MDD 5 TABLETS/24 HOURS PRN (Reason: Pain, Severe) RF: 0 magnesium hydroxide [Milk of Magnesia] 400 mg/5 mL Suspension 30 ml PO DAILY PRN (Reason: Constipation) RF: 0 cholecalciferol (vitamin D3) [Vitamin D3] 50 mcg (2,000 unit) Tablet 2,000 unit PO DAILY RF: 0 Discontinued melatonin 3 mg Tablet 3 mg PO HS RF: 0 ibuprofen 200 mg Tablet 400 mg PO BID RF: 0 telmisartan 20 mg Tablet 20 mg PO HS RF: 0 mirtazapine 15 mg Tablet 15 mg PO HS RF: 0 Discharge Orders: Discharge Order (Routine); Ordered 09/12/20 Ordered By: Marilu Haider Admission Data Admit Date/Time: 08/31/20 18:13 Attending Provider: Walter Vicente Admit Provider: Vin Gotti Primary Care Provider: Andrae Barth Other Providers: Vin Gotti ; Kentrell Leblanc ; Franki Monk ; Cady Gonzalez ; [facility] ; [place] Other Interventions: Discharge Summary Assessment (RN) Last Done: 09/12/20 14:10 Supervising Physician Co-Signing Physician Notes Patient seen and examined on the day of discharge. I agree with the discharge summary by Marilu MONTEIRO. I have reviewed the chart including labs, imaging and plans for discharge. patient is recovered from his lap lucoh and ERCP, comfortable he is further deconditioned from baseline with dementia, non verbal status will transfer to SNF for care going forward - Gangrenous cholecystitis, choledocholithiasis s/p lap lucho and ERCP completed full course of IV antibiotics no fever, vitals stable discharge to SNF as he can no longer be cared for at [facility] Coding Level of Care Code D/C Day Management >30 mins Diagnoses Acute gangrenous cholecystitis K81.0 Sepsis A41.9 Choledocholithiasis K80.50 Acute metabolic encephalopathy G93.41 Acute respiratory failure with hypercapnia J96.02 Acute kidney injury N17.9 Hypertension I10 Hypertension type: unspecified Hypothyroidism E03.9 Hypothyroidism type: unspecified Frontotemporal dementia G31.09; F02.80 Esophagitis K20.90 DVT prophylaxis Z29.9
[2020-09-12] MEDS: cefTRIAXone SODIUM 2,000 MG in DEXTROSE 5% 50 ML IV SCH (13:53)
--- NOTE | 2020-09-23 09:44 | Coding Query ---
PRESENT ON ADMISSION QUERY To promote full compliance with coding requirements relating to pateint care, physician participation is requested in all cases of call center analyst uncertainty. Please assist us with the question(s) below: Please place an X within the parenthesis (x). The following diagnosis(es) listed in this patient's medical record require physician assistance to determine if they were present on admission (POA) or not. Please advise for each diagnosis whether it was present on admission, not present on admission, or if it was clinically undetermined. 1. SEPSIS (documentation begins on Progress Note 09/02/20) (x ) Present On Admission ( ) Not Present On Admission ( ) Clinically Undetermined Thank you Ana Aguirre *Definition of the present on admission (POA)-Present on admission is defined as present at the time the order for inpatient admission occurs. Conditions that develop during an outpatient encounter prior to a written order for inpatient admission (including emergency department, observation, or outpatient surgery) are considered present on admission. MTDD
== END 2020-09-12 14:54 | disposition hospice, inpatient (51) | DRG 853 ==
LOC: ED 15:25 → 3N 18:13 → SUATTDRO 18:13 → 3N 19:13

== ENCOUNTER 2020-12-03 20:55 | Inpatient (IN) ==
[2020-12-03] MEDS ORDERED: ACETAMINOPHEN 1,000 MG/100 ML VIAL IV STA (21:19)
[2020-12-03 21:34] LABS: Appearance Urine Clear (Clear); Bacteria Urine Automated Negative (Negative); Bilirubin Urine Negative (Negative); Blood Urine Negative (Negative); Color Urine Dark Yellow; Glucose Urine UA Negative (Negative); Ketones Urine 1+ (Negative); Leukocyte Esterase Urine Trace (Negative); Nitrite Urine Negative (Negative); Protein Urine 1+ (Negative); RBC Urine Automated 0-4 /hpf (0-4); Specific Gravity Urine 1.026 (1.000-1.030); Urobilinogen Urine Negative (Negative)
[2020-12-03 21:36] LABS: Basophils # (auto) 0.02 K/uL (0-0.2); Basophils % (auto) 0.2 %; Eosinophils # (auto) 0.02 K/uL (0-0.5); Eosinophils % (auto) 0.2 %; Hemoglobin 13.1 g/dL (14.0-18.0); Immature Granulocytes # (auto) 0.01 K/uL (0.00-0.02); Immature Granulocytes % (auto) 0.1 %; Lymphocytes # (auto) 1.78 K/uL (1.2-3.4); Lymphocytes % (auto) 16.6 %; Mean Corpuscular Hgb Conc 32.8 g/dL (32-36); Mean Corpuscular Volume 88.7 fL (80-100); Mean Platelet Volume 9.8 fL (7.4-10.4); Monocytes # (auto) 1.39 K/uL (0.11-0.59); Neutrophils # (auto) 7.49 K/uL (1.4-6.5); Neutrophils % (auto) 69.9 %; Platelet Count 260 K/uL (130-400); RDW Coefficient of Variation 13.4 % (11.5-14.5); RDW Standard Deviation 43.8 fL (36.4-46.3); Red Blood Count 4.51 M/uL (4.7-6.1); White Blood Count 10.71 K/uL (4.8-10.8)
[2020-12-03 21:41] LABS: INR 1.1 (0.9-1.1); Partial Thromboplastin Ratio 1.2; Partial Thromboplastin Time 32.8 Seconds (21.0-31.0); Prothrombin Time 11.7 Seconds (9.0-12.0)
--- NOTE | 2020-12-03 21:41 | Emergency Department Note ---
History of Present Illness General Chief Complaint: Abdominal Pain Stated Complaint: ABDOMINAL PAIN (NON VERBAL) Time Seen by Provider: 12/03/20 21:06 Source: EMS History of Present Illness Provider Complaint: abdominal pain Associated Symptoms: + fever 60-year-old verbal demented patient presents emergency department for abdominal pain. Patient is unable to give history. Per EMS, the patient was moaning and holding his stomach so the intermediate staff sent him to the emergency department. Home Medications Medication Instructions Recorded Confirmed Type B complex-vitamin C-folic acid 1 tab PO DAILY 12/03/20 12/03/20 History [Folbee Plus] acetaminophen 650 mg PO Q4 PRN 12/03/20 12/03/20 History allopurinol [Zyloprim] 100 mg PO DAILY 12/03/20 12/03/20 History ascorbic acid (vitamin C) [Vitamin 500 mg PO BID 12/03/20 12/03/20 History C] cholecalciferol (vitamin D3) 50 mcg PO DAILY 12/03/20 12/03/20 History [Vitamin D3] divalproex [Depakote Sprinkles] 250 mg PO BID 12/03/20 12/03/20 History escitalopram oxalate 10 mg PO DAILY 12/03/20 12/03/20 History famotidine [Pepcid] 20 mg PO BID 12/03/20 12/03/20 History levothyroxine 88 mcg PO DAILY 12/03/20 12/03/20 History melatonin 5 mg PO HS 12/03/20 12/03/20 History memantine 28 mg PO DAILY 12/03/20 12/03/20 History quetiapine [Seroquel] 100 mg PO TID 12/03/20 12/03/20 History sennosides-docusate sodium 3 tab-cap PO BID 12/03/20 12/03/20 History [Senna-S] zinc sulfate 220 mg PO DAILY 12/03/20 12/03/20 History Allergies Allergy/AdvReac Type Severity Reaction Status Date / Time No Known Allergies Allergy Verified 12/03/20 22:02 Past Med/Surg History Medical History (Updated 12/04/20 @ 00:12 by Raghav Taylor) Acute gangrenous cholecystitis Acute kidney injury Acute metabolic encephalopathy Choledocholithiasis Esophagitis Frontotemporal dementia History of biliary stent insertion Hypertension Hypothyroidism Palliative care encounter Sepsis Surgical History (Updated 12/04/20 @ 00:12 by Raghav Taylor) S/P laparoscopic cholecystectomy Social History Smoking Status: Never smoker Hx Alcohol Use: No Hx Substance Use: No Preferred Language: Vietnamese Communication Ability: Unable Acid Correction Hand Required: No Beliefs That Will Affect Care: None marital status: Current Living Situation: Prison Feels Safe at Home: Yes Assistive Devices: None Review of Systems Unobtainable due to cognitive status Physical Exam Vital Signs: Vital Signs - 24 hr 12/03/20 21:14 12/03/20 21:27 12/03/20 21:30 Temperature 38.8 C H Temperature Source Oral Pulse Rate 108 H 104 H 106 H Pulse Rate from Sp O2 Sensor 119 H 102 H Respiratory Rate 17 24 24 Respiratory Effort / Characteristics Non-Labored Sponta neous Respiratory Depth Normal Blood Pressure 138/90 Blood Pressure Veronica n 106 Pulse Oximetry 95 99 90 Oxygen Delivery Me thod Room Air Room Air Room Air Sepsis New/Unexpla ined Change in Men ney Status N/A Sepsis Action Take n by Nursing Physician Notified 12/03/20 22:04 12/03/20 22:05 12/03/20 22:12 Temperature 37.6 C H Temperature Source Oral Pulse Rate 108 H 104 H Pulse Rate from Sp O2 Sensor 108 H 107 H Respiratory Rate 15 18 Respiratory Effort / Characteristics Respiratory Depth Blood Pressure 123/81 Blood Pressure Veronica n 95 Pulse Oximetry 100 99 Oxygen Delivery Me thod Room Air Room Air Sepsis New/Unexpla ined Change in Men ney Status Sepsis Action Take n by Nursing 12/03/20 22:30 12/03/20 23:00 12/03/20 23:40 Temperature Temperature Source Pulse Rate 100 H 101 H 99 H Pulse Rate from Sp O2 Sensor 98 H 100 H 100 H Respiratory Rate 24 13 15 Respiratory Effort / Characteristics Respiratory Depth Blood Pressure 98/64 L Blood Pressure Veronica n 75 Pulse Oximetry 97 98 96 Oxygen Delivery Me thod Room Air Room Air Room Air Sepsis New/Unexpla ined Change in Men ney Status Sepsis Action Take n by Nursing Physical Exam: Physical Exam GENERAL: Patient is nonverbal. At baseline. EYES: Conjunctivae and EOM are normal. Pupils are equal, round, and reactive to light. Right eye exhibits no discharge. Left eye exhibits no discharge. No scler al icterus. NECK: Normal range of motion. Neck supple. No JVD present. No spinous process tenderness present. No carotid bruit present. No rigidity. No tracheal deviation and normal range of motion present. No Brudzinski's sign and no Kernig's sign noted. CV: Normal rate, regular rhythm, normal heart sounds and intact distal pulses. There is no peripheral edema. Palpable radial pulses bue. PULM/CHEST: Effort normal and breath sounds normal. No respiratory distress. No stridor. He has no wheezes. He has no rales. - Chest Wall: He exhibits no tenderness. ABD: Pain on palpation of the epigastric area. NEURO: Motor and sensation grossly intact. SKIN: No rash, erythema or warmth. Course Course 2105: The patient was evaluated in room B9. A complete history and physical exam was performed. Cardiac monitoring: An order was placed for continuous cardiac monitoring. The monitor shows a rate of 110 with sinus rhythm EMR reviewed. Patient has a history of a gangrenous cholecystectomy. Patient had a cholecystectomy done laparoscopically by Dr. Leblanc on September 02, 2020. Dr. Valeria Salguero on the same date did a ERCP and placed a biliary stent in the common bile duct. 2228: Vital signs stable. Labs within normal limits. CT abdomen findings were discussed with Dr. Street and he stated that there is a biliary drain in place with pneumobilia. Imaging also showed an adjacent fluid collection with inflammatory changes that could represent a biloma or abscess. is at bedside. confirms that the patient is a DNR/DNI. states that the patient was supposed to have her his biliary stent removed however never had it done because he was diagnosed with Covid. I discussed the patient's case with [facility] GI on-call Dr. Maldonado. Both he and I believe that the biliary stent does need to be removed and that the patient should be evaluated by GI for removal. He states he does not deal with biliary stents however the patient can be admitted to the hospital by the hospitalist team and then Dr. Savi Salguero can evaluate the patient to remove the stent either tomorrow or early next week. Empiric antibiotics Zosyn will be started for the patient. [place] any hospitalist team Dr. Phan will be notified for admission. Administered Medications Sodium Chloride (Nss 1000ml) 1,000 mls @ 125 mls/hr IV .Q8H SOFY Stop: 01/02/21 21:29 Last Admin: 12/03/20 22:46 Dose: 125 mls/hr Documented by: [id number] Discontinued Medications Acetaminophen (Ofirmev) 1,000 mg in 100 mls @ 400 mls/hr IV NOW STA Stop: 12/03/20 21:33 Last Infusion: 12/03/20 23:30 Dose: 0 mls/hr Documented by: [id number] Admin: 12/03/20 22:45 Dose: 400 mls/hr Documented by: [id number] Piperacillin Sod/Tazobactam Sod (Zosyn) 4.5 gm in 120 mls @ 240 mls/hr IV NOW ONE Stop: 12/03/20 22:54 Last Infusion: 12/03/20 23:30 Dose: 0 mls/hr Documented by: [id number] Admin: 12/03/20 22:50 Dose: 240 mls/hr Documented by: [id number] Ioversol (Ioversol 100ml) 93 ml IV ONCE ONE Stop: 12/03/20 21:51 Last Admin: 12/03/20 21:51 Dose: 93 ml Documented by: [id number] Medical Decision Making Laboratory Data Result diagrams: 12/03/20 21:17 12/03/20 21:17 Lab Results 12/03/20 12/03/20 12/03/20 Range/Units 21:17 21:17 21:17 WBC 10.71 (4.8-10.8) K/uL RBC 4.51 L (4.7-6.1) M/uL Hgb 13.1 L (14.0-18.0) g/dL POC Hgb (14.0-18.0) g/dl Hct 40.0 L (42-52) % POC Hct (42-52) % MCV 88.7 (80-100) fL MCH 29.0 (25-34) pg MCHC 32.8 (32-36) g/dL RDW Std Deviation 43.8 (36.4-46.3) fL RDW Coeff of Stella 13.4 (11.5-14.5) % Plt Count 260 (130-400) K/uL MPV 9.8 (7.4-10.4) fL Immature Gran % (Auto) 0.1 % Neut % (Auto) 69.9 % Lymph % (Auto) 16.6 % Sac % (Auto) 13.0 % Eos % (Auto) 0.2 % Baso % (Auto) 0.2 % Neut # (Auto) 7.49 H (1.4-6.5) K/uL Lymph # (Auto) 1.78 (1.2-3.4) K/uL Sac # (Auto) 1.39 H (0.11-0.59) K/uL Eos # (Auto) 0.02 (0-0.5) K/uL Baso # (Auto) 0.02 (0-0.2) K/uL Immature Gran # (Auto) 0.01 (0.00-0.02) K/uL PT 11.7 (9.0-12.0) Seconds INR 1.1 (0.9-1.1) APTT 32.8 H (21.0-31.0) Seconds PTT Ratio 1.2 POC Sodium (135-144) mmol/L Sodium 139 (136-145) mmol/L POC Potassium (3.3-5.0) mmol/L Potassium 3.8 (3.5-5.1) mmol/L POC Chloride (101-112) mmol/L Chloride 104 (98-107) mmol/L Carbon Dioxide 29 (21-32) mmol/L POC Total CO2 (24-31) mmol/L Anion Gap 6.0 (3-11) POC Anion Gap (16-25) mmol/L POC BUN (7-18) mg/dl BUN 16 (7-18) mg/dl Creatinine 1.08 (0.6-1.4) mg/dl POC Creatinine (0.6-1.3) mg/dl Est Cr Clr Drug Dosing Not Reportable Est GFR ( Amer) 84.8 Est GFR (Non-Af Amer) 73.2 BUN/Creatinine Ratio 14.6 (10-20) Glucose 106 H (70-99) mg/dl POC Glucose (other) (70-99) mg/dl Lactate (0.4-2.0) mmol/L Calcium 9.2 (8.5-10.1) mg/dl POC Ioniz Calcium Ashlee (1.12-1.32) mmol/l Total Bilirubin 0.6 (0.2-1) mg/dl Direct Bilirubin 0.2 (0-0.2) mg/dl AST 16 (15-37) U/L ALT 24 (12-78) U/L Alkaline Phosphatase 76 (45-117) U/L Total Protein 7.4 (6.4-8.2) gm/dl Albumin 3.0 L (3.4-5.0) gm/dl Lipase 100 (73-393) U/L Urine Color Urine Appearance (Clear) Urine pH (4.5-7.5) Ur Specific [place] (1.000-1.030) Urine Protein (Negative) Urine Glucose (UA) (Negative) Urine Ketones (Negative) Urine Blood (Negative) Urine Nitrite (Negative) Urine Bilirubin (Negative) Urine Urobilinogen (Negative) Ur Leukocyte Esterase (Negative) Urine WBC (Auto) (0-5) /hpf Urine RBC (Auto) (0-4) /hpf U Hyaline Cast (Auto) (0-5) /lpf U Epithel Cells (Auto) (0-5) /lpf Urine Bacteria (Auto) (Negative) COVID-19 Eval Order 12/03/20 12/03/20 12/03/20 Range/Units 21:18 21:32 21:39 WBC (4.8-10.8) K/uL RBC (4.7-6.1) M/uL Hgb (14.0-18.0) g/dL POC Hgb 13.3 L (14.0-18.0) g/dl Hct (42-52) % POC Hct 39 L (42-52) % MCV (80-100) fL MCH (25-34) pg MCHC (32-36) g/dL RDW Std Deviation (36.4-46.3) fL RDW Coeff of Stella (11.5-14.5) % Plt Count (130-400) K/uL MPV (7.4-10.4) fL Immature Gran % (Auto) % Neut % (Auto) % Lymph % (Auto) % Sac % (Auto) % Eos % (Auto) % Baso % (Auto) % Neut # (Auto) (1.4-6.5) K/uL Lymph # (Auto) (1.2-3.4) K/uL Sac # (Auto) (0.11-0.59) K/uL Eos # (Auto) (0-0.5) K/uL Baso # (Auto) (0-0.2) K/uL Immature Gran # (Auto) (0.00-0.02) K/uL PT (9.0-12.0) Seconds INR (0.9-1.1) APTT (21.0-31.0) Seconds PTT Ratio POC Sodium 141 (135-144) mmol/L Sodium (136-145) mmol/L POC Potassium 3.9 (3.3-5.0) mmol/L Potassium (3.5-5.1) mmol/L POC Chloride 98 L (101-112) mmol/L Chloride (98-107) mmol/L Carbon Dioxide (21-32) mmol/L POC Total CO2 28 (24-31) mmol/L Anion Gap (3-11) POC Anion Gap 20.0 (16-25) mmol/L POC BUN 16 (7-18) mg/dl BUN (7-18) mg/dl Creatinine (0.6-1.4) mg/dl POC Creatinine 1.0 (0.6-1.3) mg/dl Est Cr Clr Drug Dosing Est GFR ( Amer) Est GFR (Non-Af Amer) BUN/Creatinine Ratio (10-20) Glucose (70-99) mg/dl POC Glucose (other) 105 H (70-99) mg/dl Lactate 0.9 (0.4-2.0) mmol/L Calcium (8.5-10.1) mg/dl POC Ioniz Calcium Ashlee 1.18 (1.12-1.32) mmol/l Total Bilirubin (0.2-1) mg/dl Direct Bilirubin (0-0.2) mg/dl AST (15-37) U/L ALT (12-78) U/L Alkaline Phosphatase (45-117) U/L Total Protein (6.4-8.2) gm/dl Albumin (3.4-5.0) gm/dl Lipase (73-393) U/L Urine Color Dark Yellow Urine Appearance Clear (Clear) Urine pH 6.0 (4.5-7.5) Ur Specific [place] 1.026 (1.000-1.030) Urine Protein 1+ H (Negative) Urine Glucose (UA) Negative (Negative) Urine Ketones 1+ H (Negative) Urine Blood Negative (Negative) Urine Nitrite Negative (Negative) Urine Bilirubin Negative (Negative) Urine Urobilinogen Negative (Negative) Ur Leukocyte Esterase Trace H (Negative) Urine WBC (Auto) 1-5 (0-5) /hpf Urine RBC (Auto) 0-4 (0-4) /hpf U Hyaline Cast (Auto) 1-5 (0-5) /lpf U Epithel Cells (Auto) 5-10 H (0-5) /lpf Urine Bacteria (Auto) Negative (Negative) COVID-19 Eval Order 12/03/20 Range/Units 22:54 WBC (4.8-10.8) K/uL RBC (4.7-6.1) M/uL Hgb (14.0-18.0) g/dL POC Hgb (14.0-18.0) g/dl Hct (42-52) % POC Hct (42-52) % MCV (80-100) fL MCH (25-34) pg MCHC (32-36) g/dL RDW Std Deviation (36.4-46.3) fL RDW Coeff of Stella (11.5-14.5) % Plt Count (130-400) K/uL MPV (7.4-10.4) fL Immature Gran % (Auto) % Neut % (Auto) % Lymph % (Auto) % Sac % (Auto) % Eos % (Auto) % Baso % (Auto) % Neut # (Auto) (1.4-6.5) K/uL Lymph # (Auto) (1.2-3.4) K/uL Sac # (Auto) (0.11-0.59) K/uL Eos # (Auto) (0-0.5) K/uL Baso # (Auto) (0-0.2) K/uL Immature Gran # (Auto) (0.00-0.02) K/uL PT (9.0-12.0) Seconds INR (0.9-1.1) APTT (21.0-31.0) Seconds PTT Ratio POC Sodium (135-144) mmol/L Sodium (136-145) mmol/L POC Potassium (3.3-5.0) mmol/L Potassium (3.5-5.1) mmol/L POC Chloride (101-112) mmol/L Chloride (98-107) mmol/L Carbon Dioxide (21-32) mmol/L POC Total CO2 (24-31) mmol/L Anion Gap (3-11) POC Anion Gap (16-25) mmol/L POC BUN (7-18) mg/dl BUN (7-18) mg/dl Creatinine (0.6-1.4) mg/dl POC Creatinine (0.6-1.3) mg/dl Est Cr Clr Drug Dosing Est GFR ( Amer) Est GFR (Non-Af Amer) BUN/Creatinine Ratio (10-20) Glucose (70-99) mg/dl POC Glucose (other) (70-99) mg/dl Lactate (0.4-2.0) mmol/L Calcium (8.5-10.1) mg/dl POC Ioniz Calcium Ashlee (1.12-1.32) mmol/l Total Bilirubin (0.2-1) mg/dl Direct Bilirubin (0-0.2) mg/dl AST (15-37) U/L ALT (12-78) U/L Alkaline Phosphatase (45-117) U/L Total Protein (6.4-8.2) gm/dl Albumin (3.4-5.0) gm/dl Lipase (73-393) U/L Urine Color Urine Appearance (Clear) Urine pH (4.5-7.5) Ur Specific [place] (1.000-1.030) Urine Protein (Negative) Urine Glucose (UA) (Negative) Urine Ketones (Negative) Urine Blood (Negative) Urine Nitrite (Negative) Urine Bilirubin (Negative) Urine Urobilinogen (Negative) Ur Leukocyte Esterase (Negative) Urine WBC (Auto) (0-5) /hpf Urine RBC (Auto) (0-4) /hpf U Hyaline Cast (Auto) (0-5) /lpf U Epithel Cells (Auto) (0-5) /lpf Urine Bacteria (Auto) (Negative) COVID-19 Eval Order Covid19 IDNow [facility] Imaging Data Radiologist's Impression: Preliminary Findings Only See Final Report For Complete Findings CT ABDOMEN & PELVIS With Contrast: Comparison 08/31/2020 Status post cholecystectomy. Biliary drain in place mobilia. Fluid collection subjacent to the right hepatic lobe with associated inflammatory changes. Potentially a biloma. Abscess not excluded but considered less likely. No acute abnormality along the GI tract. Pancreas, spleen, and kidneys are unremarkable. Radiologist: Juan Luis Street MD Study ready at 22:06 and initial results transmitted at 22:09 ECG Data Indication: abdominal pain Rate (beats per minute): 104 Rhythm: normal sinus Findings: no ST depression, no ST elevation and no prolonged QT [facility] Narrative 2105: The patient was evaluated in room B9. A complete history and physical exam was performed. Cardiac monitoring: An order was placed for continuous cardiac monitoring. The monitor shows a rate of 110 with sinus rhythm EMR reviewed. Patient has a history of a gangrenous cholecystectomy. Patient had a cholecystectomy done laparoscopically by Dr. Leblanc on September 02, 2020. Dr. Valeria Salguero on the same date did a ERCP and placed a biliary stent in the common bile duct. 2227: Vital signs stable. Labs within normal limits. CT abdomen findings were discussed with Dr. Street and he stated that there is a biliary drain in place with pneumobilia. Imaging also showed an adjacent fluid collection with inflammatory changes that could represent a biloma or abscess. is at bedside. confirms that the patient is a DNR/DNI. states that the patient was supposed to have her his biliary stent removed however never had it done because he was diagnosed with Covid. I discussed the patient's case with [facility] GI on-call Dr. Maldonado. Both he and I believe that the biliary stent does need to be removed and that the patient should be evaluated by GI for removal. He states he does not deal with biliary stents however the patient can be admitted to the hospital by the hospitalist team and then Dr. Savi Salguero can evaluate the patient to remove the stent either tomorrow or early next week. Empiric antibiotics Zosyn will be started for the patient. [facility] any hospitalist team Dr. Phan will be notified for admission. Impression & Plan History of biliary duct stent placement, Abdominal pain Discharge Plan Visit Data Chief Complaint: Abdominal Pain Stated Complaint: ABDOMINAL PAIN (NON VERBAL) ED Provider: Raghav Taylor Discharge Problem: History of biliary duct stent placement, Abdominal pain Patient Disposition: Being Evaluated by Hospitalist Forms Stand Alone Forms: My [facility] Prescriptions Prescriptions: No Action Folbee Plus 5 mg tablet 1 tab PO DAILY RF: 0 acetaminophen 325 mg Tablet 650 mg PO Q4 PRN (Reason: Fever Or Pain) RF: 0 sennosides-docusate sodium [Senna-S] 8.6-50 mg Tablet 3 tab-cap PO BID RF: 0 allopurinol [Zyloprim] 100 mg tablet 100 mg PO DAILY RF: 0 quetiapine [Seroquel] 100 mg tablet 100 mg PO TID RF: 0 zinc sulfate 220 mg Tablet 220 mg PO DAILY RF: 0 levothyroxine 88 mcg tablet 88 mcg PO DAILY RF: 0 famotidine [Pepcid] 20 mg tablet 20 mg PO BID RF: 0 ascorbic acid (vitamin C) [Vitamin C] 500 mg Tablet 500 mg PO BID RF: 0 divalproex [Depakote Sprinkles] 125 mg capsule, delayed rel sprinkle 250 mg PO BID RF: 0 escitalopram oxalate 10 mg tablet 10 mg PO DAILY RF: 0 melatonin 5 mg Tablet 5 mg PO HS RF: 0 cholecalciferol (vitamin D3) [Vitamin D3] 50 mcg (2,000 unit) Tablet 50 mcg PO DAILY RF: 0 memantine 28 mg capsule,sprinkle,ER 24hr 28 mg PO DAILY RF: 0 Referrals Referrals: Andrae Barth [Primary Care Provider] - Discharge Problem: Abdominal pain Qualifiers: Abdominal location: unspecified location Qualified Code(s): R10.9 - Unspecified abdominal pain
[2020-12-03 21:44] LABS: Alanine Aminotransferase 24 U/L (12-78); Aspartate Aminotransferase 16 U/L (15-37); BUN Creatinine Ratio 14.6 (10-20); Bilirubin Direct 0.2 mg/dl (0-0.2); Blood Urea Nitrogen 16 mg/dl (7-18); Calcium 9.2 mg/dl (8.5-10.1); Carbon Dioxide 29 mmol/L (21-32); Chloride 104 mmol/L (98-107); Est GFR (African American) 84.8; Est GFR (Non-African American) 73.2; Glucose 106 mg/dl (70-99); Lipase 100 U/L (73-393); Potassium 3.8 mmol/L (3.5-5.1); Sodium 139 mmol/L (136-145)
[2020-12-03 21:47] LABS: Alkaline Phosphatase 76 U/L (45-117); Bilirubin,Total 0.6 mg/dl (0.2-1); Total Protein 7.4 gm/dl (6.4-8.2)
[2020-12-03] MEDS ORDERED: OPTIRAY 320 100ml IV ONE (21:50)
[2020-12-03 21:53] LABS: iSTAT Hemoglobin 13.3 g/dl (14.0-18.0); iSTAT Ionized Calcium 1.18 mmol/l (1.12-1.32); iSTAT Potassium 3.9 mmol/L (3.3-5.0)
[2020-12-03] MEDS ORDERED: PIPERACILLIN/TAZOBACTAM 4.5 GM/120 ML BAG IV ONE (22:25)
[2020-12-03] MEDS: SODIUM CHLORIDE 0.9% 1000ML 1,000 ML IV SCH (22:46)
[2020-12-04] MEDS ORDERED: POLYETHYLENE (MIRALAX) 17 GM PACK PO PRN (01:21)
[2020-12-04] MEDS: SODIUM CHLORIDE 0.9% 1000ML 1,000 ML IV SCH ×3 (06:09→16:41)
[2020-12-04] MEDS: LEVOTHYROXINE SODIUM 88 MCG TABLET PO SCH (06:10)
--- NOTE | 2020-12-04 07:27 | XRay Report ---
XR chest 1V portable CLINICAL HISTORY: Fever. Possible pneumonia COMPARISON STUDY: 08/23/2020 FINDINGS: The cardiac and mediastinal contours remain stable. There is no failure. There is no focal pulmonary consolidation. There are no pleural effusions. There is minor left basilar atelectasis. The re is significant improvement in the aeration the lung bases when compared the prior study.[ IMPRESSION: No active disease in the chest. ACT 112: Negative or not required by law. Electronically signed by: Greg Hester M.D. 12/04/2020 7:26 AM
--- NOTE | 2020-12-04 07:51 | CT Scan Report ---
CT abd pelvis IV con only CLINICAL HISTORY: Abdominal pain COMPARISON STUDY: 08/23/2020 TECHNIQUE: The patient was scanned in a dynamic helical fashion during intravenous and ministration o f 93 cc of Optiray 320 A dose lowering technique was utilized adhering to the principles of ALARA. CT DOSE: 654.80 mGy.cm FINDINGS: Lower chest: There are bibasilar atelectatic changes present. Liver: There is pneumobilia. There is an indwelling biliary enteric stent. There is infiltration of t he fat adjacent to the right lobe of the liver in the region of the gallbladder fossa. There is a com plex fluid collection in the region the gallbladder fossa. This likely represents residual gallbladde r in a patient status post a subtotal cholecystectomy, as well as an adjacent abscess/biloma. There i s also a small intrahepatic fluid collection which could represent an abscess or biloma. Gallbladder: The patient is status post a partial cholecystectomy. There are inflammatory changes pre sent within the gallbladder fossa consistent with a biloma/abscess. Spleen: Normal in size and attenuation. Pancreas: Unremarkable. Adrenal glands: Unremarkable. Kidneys: There is a 14 mm right renal cyst. There is no hydronephrosis Bowel: There are no transition zones to indicate bowel obstruction. The appendix appears normal. Ther e is no acute diverticulitis. There are scattered fluid-filled small bowel loops likely representing a mild ileus. There is moderate stool within the rectosigmoid. Peritoneum: There is no intraperitoneal free air or abdominal ascites. Vasculature: The abdominal aorta is normal in course and caliber. Adenopathy: There are prominent periportal lymph nodes, likely reactive. Pelvic viscera: There is mild bladder wall thickening, possibly secondary to incomplete distention. T he prostate is mildly enlarged Skeletal structures: No destructive osseous lesions are seen. Postsurgical changes are present within the spine IMPRESSION: 1. Postsurgical changes of a subtotal cholecystectomy. There are inflammatory changes in the gallblad nicky fossa and adjacent the right lobe of the liver. There are small intrahepatic fluid collections. T he largest is a 5 cm collection which abuts the gallbladder remnant. There is an indwelling biliary e nteric stent with pneumobilia. The findings are concerning for a postsurgical abscess or infected lenny gertrude. ACT 112: Negative or not required by law. Electronically signed by: Greg Hester M.D. 12/04/2020 7:50 AM
[2020-12-04] MEDS: cefTRIAXone SODIUM 1,000 MG in DEXTROSE 5% 50 ML IV SCH (08:36)
[2020-12-04] MEDS: CHOLECALCIFEROL 1,000 UNITS 25 MCG TAB PO SCH (08:45)
[2020-12-04] MEDS: QUEtiapine FUMARATE 100 MG TABLET PO SCH ×3 (08:45→20:09)
[2020-12-04] MEDS: FAMOTIDINE 20 MG TAB PO SCH ×2 (08:46→20:09)
[2020-12-04] MEDS: DOCUSATE SODIUM/SENNA 50/8.6MG TAB PO SCH ×2 (08:46→20:09)
[2020-12-04] MEDS: VITAMIN B COMPLEX TAB PO SCH (08:46)
[2020-12-04] MEDS: allopurinoL 100 MG TAB PO SCH (08:46)
[2020-12-04] MEDS: ASCORBIC ACID 500 MG TAB PO SCH ×2 (08:46→20:09)
[2020-12-04] MEDS: ESCITALOPRAM OXALATE 10 MG TAB PO SCH (08:46)
[2020-12-04] MEDS: DIVALPROEX SODIUM SPRINKLE 125 MG CAP PO SCH ×2 (08:47→20:09)
[2020-12-04] MEDS ORDERED: HEPARIN SOD 5,000 UNIT/0.5 ML VIAL SQ SCH (09:00)
--- NOTE | 2020-12-04 09:22 | Gastrointestinal Consultation ---
Date of Consultation December 04, 2020 Assessment & Plan (1) Sepsis: (2) History of biliary duct stent placement: (3) Abdominal pain: Continue Abx as per the primary team Keep patient NPO Continue supportive care I disussed the case with Dr. Monk, and he will perform an ERCP with Stent removal on 12/05/2020 History of Present Illness Reason for Consultation: "Bile Duct stent infection" Attending Physician: Adelaida Nix MD History of Present Illness Ki nova is a 60 yo male with an extensive PMHx including early onset dementia who presented to the ER last night with reported abdominal discomfort. The patient is non-verbal and nursing staff at his long-term [facility] facility noted that he appeared to be in abdominal pain. He was subsequently transferred to [facility] ER and upon arrival had a CT abd/pelvis which noted a right hepatic lobe fluid collection and retained bile duct stent. He did undergo a cholecystectomy in late August, and at that time had an ERCP secondary to cholelithiasis. A bile duct stent was placed to ensure drainage, and Dr. Monk recommended stent removal in 6 weeks. The patient did not return for Stent removal at the requested interval due to COVID-19 infection. On arrival the patient was hemodynamically stable and he was admitted on Abx therapy. At the time I saw the patient, his WBC count remained in the normal range. Nursing staff reported that he had a elevated temperature this AM, but no other changes from his arrival. He is non-verbal and cannot add anything to his HPI. Allergies Allergy/AdvReac Type Severity Reaction Status Date / Time No Known Allergies Allergy Verified 12/03/20 22:02 Home Medications Medication Instructions Recorded Confirmed Type B complex-vitamin C-folic acid 1 tab PO DAILY 12/03/20 12/03/20 History [Folbee Plus] acetaminophen 650 mg PO Q4 PRN 12/03/20 12/03/20 History allopurinol [Zyloprim] 100 mg PO DAILY 12/03/20 12/03/20 History ascorbic acid (vitamin C) [Vitamin 500 mg PO BID 12/03/20 12/03/20 History C] cholecalciferol (vitamin D3) 50 mcg PO DAILY 12/03/20 12/03/20 History [Vitamin D3] divalproex [Depakote Sprinkles] 250 mg PO BID 12/03/20 12/03/20 History escitalopram oxalate 10 mg PO DAILY 12/03/20 12/03/20 History famotidine [Pepcid] 20 mg PO BID 12/03/20 12/03/20 History levothyroxine 88 mcg PO DAILY 12/03/20 12/03/20 History melatonin 5 mg PO HS 12/03/20 12/03/20 History memantine 28 mg PO DAILY 12/03/20 12/03/20 History quetiapine [Seroquel] 100 mg PO TID 12/03/20 12/03/20 History sennosides-docusate sodium 3 tab-cap PO BID 12/03/20 12/03/20 History [Senna-S] zinc sulfate 220 mg PO DAILY 12/03/20 12/03/20 History Patient History Medical History Acute gangrenous cholecystitis Acute kidney injury Acute metabolic encephalopathy Choledocholithiasis Esophagitis Frontotemporal dementia History of biliary stent insertion Hypertension Hypothyroidism Palliative care encounter Sepsis Surgical History S/P laparoscopic cholecystectomy Social History Smoking Status: Never smoker Hx Alcohol Use: No Hx Substance Use: No Preferred Language: Greek Communication Ability: Impaired Short Order Cook Required: No Beliefs That Will Affect Care: None marital status: Current Living Situation: Detention Feels Safe at Home: Yes Safety Concerns: Feels Safe At This Time Assistive Devices: None Review of Systems Review of Systems: Unobtainable due to cognitive status Physical Exam Constitutional: well nourished; no acute distress Eyes: sclerae not anicteric Neck: normal visual inspection Respiratory: normal respiratory effort, lungs clear to auscultation Cardiovascular: RRR, no murmur, no edema Gastrointestinal (Abdomen): Inspection/Auscultation: abdomen normal to inspection and normal bowel sounds; abdomen not distended Percussion/Palpation: + abdomen tender and abdomen soft; no guarding, abdomen not rigid and no hepatosplenomegaly Psychiatric: Orientation: + not oriented x 3 Results & Data ([facility]) Vital Signs (Past 12 Hours) Vital Signs Temp Pulse Pulse Resp BP BP Pulse Ox 12/04/20 07:57 38.4 C H 97 H 16 113/82 96 12/04/20 00:21 36.7 C 12/04/20 00:20 90 19 101/69 97 12/03/20 23:40 99 H 15 98/64 L 96 12/03/20 23:36 36.9 C 88 16 107/71 98 12/03/20 23:00 101 H 13 98 12/03/20 22:30 100 H 24 97 12/03/20 22:12 37.6 C H 12/03/20 22:05 104 H 18 123/81 99 12/03/20 22:04 108 H 15 100 12/03/20 21:30 106 H 24 90 12/03/20 21:27 38.8 C H 104 H 24 138/90 99 12/03/20 21:14 108 H 17 95 PG Care Time/CCT Total # of Minutes Spent Total Time Spent with Patient: Total time spent is greater than 50% in coordination of care (as documented) at patient's floor/unit and/or counseling patient: Coding Level of Care Code 65973 Initial Inpt Care Lvl 3 Diagnoses Sepsis A41.9 Sepsis acute organ dysfunction status: without acute organ dysfunction Sepsis type: sepsis due to unspecified organism History of biliary duct stent placement Z98.890 Abdominal pain R10.9 Abdominal location: unspecified location (1) Sepsis Sepsis acute organ dysfunction status: without acute organ dysfunction Sepsis type: sepsis due to unspecified organism Qualified Code(s): A41.9 - Sepsis, unspecified organism (2) Abdominal pain Abdominal location: unspecified location Qualified Code(s): R10.9 - Unspecified abdominal pain
--- NOTE | 2020-12-04 12:32 | Electrocardiogram Report ---
Test Reason : Blood Pressure : / mmHG Vent. Rate : 104 BPM Atrial Rate : 104 BPM P-R Int : 158 ms QRS Dur : 084 ms QT Int : 314 ms P-R-T Axes : 040 050 022 degrees QTc Int : 412 ms Poor data quality, interpretation may be adversely affected Sinus tachycardia Otherwise normal ECG When compared with ECG of 31-AUG-2020 18:11, No significant change was found Confirmed by Doni Castro ([id number]) on 12/04/2020 12:32:32 PM Referred By: Andrae Barth Confirmed By:Doni Castro
--- NOTE | 2020-12-04 13:35 | Hospitalist Progress Note ---
Date of Service December 04, 2020 Assessment & Plan (1) Sepsis: This pt is a 60-year-old male with a history of hypertension, hypothyroidism, severe frontotemporal dementia (nonverbal x 2.5 years), biliary stent placement, on hospice; patient admitted for sepsis suspected to be secondary to infected biliary duct stent. Sepsis likely 2/2 GI source, infected biliary stent: -On admission with fever and tachycardia without organ dysfunction suggestive of sepsis. DId seem to have abdominal pain and is tender on exam here in RUQ -UA and CXR without findings suggestive of infection. -CTAP with fluid collection and inflammation near biliary stent, abscess less likely per stat read however cannot be ruled out. -Due to prior fluid cultures consistent with E. coli and B fragilis infection sensitive to ceftriaxone, will continue ceftriaxone and await blood cultures. -NSS at 125 cc/hr, n.p.o. for now awaiting routine GI consult. -Treatment this admission is with overall goal of comfort and treatment of infection suspected to be secondary to biliary stent that was unable to be removed due to prior COVID-19 positive status the beginning of Nov. COVID-19 testing negative here -Tylenol as needed fever/abdominal pain; abdominal exam on admission nontoxic and without focal tenderness. -PLAN FOR removal of biliary stent tomorrow with GI (2) History of biliary duct stent placement: as above (3) Abdominal pain: secondary to infection in biliary stent placement (4) Frontotemporal dementia: severe -Continue home memantine, Seroquel. Continue home Depakote. -Palliative care consult placed as patient has been under palliative care service in the past, with goal to discuss goals of care with patient's and determine home versus inpatient status for antibiotics/hospice care. (5) Hypothyroidism: continue levothyroxine home dose for now TSH elevated in 09/2020 repeat TSH in AM (6) DVT prophylaxis: heparin SQ on hold for ERCP with stent removal tomorrow Dispo-continued stay, possible back to [facility] with Hospice again in 1-2 days Discussed with --> continue IVFs and IV abx for now. 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 No head nods or responses to questions. Discussed his care with on the phone. She states he has been non-verbal x 2.5 years and had progressive dementia over the last 10 years. RN reports no significant overnight events Review of Systems Review of Systems: Unobtainable due to cognitive status Physical Exam Constitutional: WD/WN, vitals as above Eyes: + anicteric sclerae Neck: trachea midline, no thyromegaly Respiratory: normal respiratory effort, lungs clear to auscultation Cardiovascular: RRR, no murmur, no edema Chest (Breasts): Chest: normal inspection of chest Gastrointestinal (Abdomen): Inspection/Auscultation: normal bowel sounds; abdomen not distended Percussion/Palpation: + abdomen tender (mild in RUQ) and abdomen soft Musculoskeletal: Extremities: extremities normal to inspection; no cyanosis and no clubbing Skin: no rashes, warm and dry Neurologic: moves all extremities and awake; no focal motor deficits Psychiatric: A+Ox3, euthymic affect Lymphatic: no lymphedema Results & Data Results & Data ([facility]) Vital Signs (Past 12 Hours) Vital Signs Temp Pulse Resp BP Pulse Ox 12/04/20 07:57 38.4 C H 97 H 16 113/82 96 Laboratory Results labs reviewed PG Care Time/CCT Total # of Minutes Spent Total Time Spent with Patient: Total time spent is greater than 50% in coordination of care (as documented) at patient's floor/unit and/or counseling patient: Coding Level of Care Code 03726 Subseq Hosp Care Lvl 3 Diagnoses Sepsis A41.9 Sepsis acute organ dysfunction status: without acute organ dysfunction Sepsis type: sepsis due to unspecified organism History of biliary duct stent placement Z98.890 Abdominal pain R10.9 Abdominal location: unspecified location Frontotemporal dementia G31.09; F02.80 Hypothyroidism E03.9 Hypothyroidism type: unspecified DVT prophylaxis Z29.9 (1) Hypothyroidism Hypothyroidism type: unspecified Qualified Code(s): E03.9 - Hypothyroidism, unspecified (2) Sepsis Sepsis acute organ dysfunction status: without acute organ dysfunction Sepsis type: sepsis due to unspecified organism Qualified Code(s): A41.9 - Sepsis, unspecified organism (3) Abdominal pain Abdominal location: unspecified location Qualified Code(s): R10.9 - Unspecified abdominal pain
[2020-12-04] MEDS: ACETAMINOPHEN 325 MG TAB PO PRN (23:36)
[2020-12-05] MEDS: SODIUM CHLORIDE 0.9% 1000ML 1,000 ML IV SCH ×2 (01:40→15:49)
[2020-12-05] MEDS: LEVOTHYROXINE SODIUM 88 MCG TABLET PO SCH (05:44)
[2020-12-05 07:08] LABS: Basophils # (auto) 0.02 K/uL (0-0.2); Basophils % (auto) 0.2 %; Eosinophils # (auto) 0.04 K/uL (0-0.5); Eosinophils % (auto) 0.5 %; Hematocrit (blood only) 35.8 % (42-52); Hemoglobin 11.8 g/dL (14.0-18.0); Immature Granulocytes # (auto) 0.02 K/uL (0.00-0.02); Immature Granulocytes % (auto) 0.2 %; Lymphocytes # (auto) 1.56 K/uL (1.2-3.4); Lymphocytes % (auto) 17.8 %; Mean Corpuscular Hemoglobin 28.8 pg (25-34); Mean Corpuscular Volume 87.3 fL (80-100); Mean Platelet Volume 9.7 fL (7.4-10.4); Monocytes # (auto) 1.14 K/uL (0.11-0.59); Neutrophils # (auto) 5.97 K/uL (1.4-6.5); Neutrophils % (auto) 68.3 %; Platelet Count 207 K/uL (130-400); RDW Coefficient of Variation 13.1 % (11.5-14.5); RDW Standard Deviation 42.1 fL (36.4-46.3); White Blood Count 8.75 K/uL (4.8-10.8)
[2020-12-05 07:29] LABS: Albumin Level 2.2 gm/dl (3.4-5.0); BUN Creatinine Ratio 12.5 (10-20); Calcium 8.1 mg/dl (8.5-10.1); Creatinine Clr Calc Pharmacy 78.8 ml/min; Est GFR (African American) 100.3; Est GFR (Non-African American) 86.5; Potassium 3.8 mmol/L (3.5-5.1)
[2020-12-05 07:40] LABS: Bilirubin Direct 0.2 mg/dl (0-0.2); Bilirubin,Total 0.5 mg/dl (0.2-1); Thyroid Stimulating Hormone 3.77 uIu/ml (0.300-4.500); Total Protein 6.3 gm/dl (6.4-8.2)
[2020-12-05] MEDS: cefTRIAXone SODIUM 1,000 MG in DEXTROSE 5% 50 ML IV SCH (07:44)
--- NOTE | 2020-12-05 08:48 | Gastroenterology Progress Note ---
Date of Service December 05, 2020 Assessment & Plan (1) History of biliary duct stent placement: 60 year old male w/ early onset dementia, non-verbal at baseline admitted w/ right hepatic lobe fluid collection and retained bile duct stent. cholecystectomy and ERCPin late August, Unfortunately, The patient did not return for Stent removal at the requested interval due to COVID-19 infection. NPO for ERCP evaluation. Admission and Anticipated Discharge Date Admission Date: December 04, 2020 Supervising Physician Co-Signing Physician Notes I performed a history and physical examination of the patient today, including specifically on physical exam - soft abdomen. I have discussed the patient's management with the advanced practitioner. Please refer to the nurse practitioner's note for the documented findings and plan of care. I spoke to his , she consented for EUS/ERCP. SHe indicated he is on comfort care but wants the stent out. I explained he may have an Abscess so will evaluate if EUS drainage is doable, otherwise may need IR guided drainage. Subjective Pt was seen and evaluated, chart reviewed. Awake, but nonverbal. NPO. Review of Systems Review of Systems: Unobtainable due to cognitive status Physical Exam Constitutional: + thin; no acute distress Neck: trachea midline Respiratory: normal respiratory effort; no respiratory distress Cardiovascular: Rate/Rhythm: regular rate and regular rhythm Gastrointestinal (Abdomen): Percussion/Palpation: abdomen soft Skin: no rashes, warm and dry Results & Data ([facility]) Vital Signs (Past 12 Hours) Vital Signs Temp Pulse Resp BP Pulse Ox 12/05/20 08:00 36.3 C L 92 H 18 111/68 97 12/05/20 00:29 37.0 C 90 12/04/20 23:30 38.2 C H 105 H 16 128/78 98 Laboratory Results 12/05/20 12/05/20 Range/Units 06:21 06:21 WBC 8.75 (4.8-10.8) K/uL RBC 4.10 L (4.7-6.1) M/uL Hgb 11.8 L (14.0-18.0) g/dL Hct 35.8 L (42-52) % MCV 87.3 (80-100) fL MCH 28.8 (25-34) pg MCHC 33.0 (32-36) g/dL RDW Std Deviation 42.1 (36.4-46.3) fL RDW Coeff of Stella 13.1 (11.5-14.5) % Plt Count 207 (130-400) K/uL MPV 9.7 (7.4-10.4) fL Immature Gran % (Auto) 0.2 % Neut % (Auto) 68.3 % Lymph % (Auto) 17.8 % [place] % (Auto) 13.0 % Eos % (Auto) 0.5 % Baso % (Auto) 0.2 % Neut # (Auto) 5.97 (1.4-6.5) K/uL Lymph # (Auto) 1.56 (1.2-3.4) K/uL [place] # (Auto) 1.14 H (0.11-0.59) K/uL Eos # (Auto) 0.04 (0-0.5) K/uL Baso # (Auto) 0.02 (0-0.2) K/uL Immature Gran # (Auto) 0.02 (0.00-0.02) K/uL Sodium 142 (136-145) mmol/L Potassium 3.8 (3.5-5.1) mmol/L Chloride 111 H (98-107) mmol/L Carbon Dioxide 26 (21-32) mmol/L Anion Gap 5.0 (3-11) BUN 12 (7-18) mg/dl Creatinine 0.94 (0.6-1.4) mg/dl Est Cr Clr Drug Dosing 78.8 ml/min Est GFR ( Amer) 100.3 Est GFR (Non-Af Amer) 86.5 BUN/Creatinine Ratio 12.5 (10-20) Glucose 74 (70-99) mg/dl Calcium 8.1 L (8.5-10.1) mg/dl Total Bilirubin 0.5 (0.2-1) mg/dl Direct Bilirubin 0.2 (0-0.2) mg/dl AST 13 L (15-37) U/L ALT 17 (12-78) U/L Alkaline Phosphatase 67 (45-117) U/L Total Protein 6.3 L (6.4-8.2) gm/dl Albumin 2.2 L (3.4-5.0) gm/dl TSH 3.770 (0.300-4.500) uIu/ml
[2020-12-05] MEDS: FAMOTIDINE 20 MG TAB PO SCH ×2 (08:58→21:38)
[2020-12-05] MEDS: DIVALPROEX SODIUM SPRINKLE 125 MG CAP PO SCH ×2 (08:58→21:38)
[2020-12-05] MEDS: QUEtiapine FUMARATE 100 MG TABLET PO SCH ×3 (08:58→21:38)
[2020-12-05] MEDS: ASCORBIC ACID 500 MG TAB PO SCH ×2 (08:58→21:38)
[2020-12-05] MEDS: CHOLECALCIFEROL 1,000 UNITS 25 MCG TAB PO SCH (08:59)
[2020-12-05] MEDS: VITAMIN B COMPLEX TAB PO SCH (08:59)
[2020-12-05] MEDS: ESCITALOPRAM OXALATE 10 MG TAB PO SCH (08:59)
[2020-12-05] MEDS: allopurinoL 100 MG TAB PO SCH (08:59)
[2020-12-05] MEDS: DOCUSATE SODIUM/SENNA 50/8.6MG TAB PO SCH ×2 (08:59→21:38)
--- NOTE | 2020-12-05 09:37 | Anesthesiology Consultation ---
Date of Service December 05, 2020 Assessment & Plan (1) Encounter for pre-operative examination: Chart Review Chart Review: Acceptable Risk for Surgery History Surgery Operation Date: 12/05/20 07:00 Proposed Procedures p ERCP with Stent Removal - Franki Monk MD Height/Weight Height: 5 ft 8 in Weight: 68.9 kg Allergies Allergy/AdvReac Type Severity Reaction Status Date / Time No Known Allergies Allergy Verified 12/03/20 22:02 Medications Home Medications Medication Instructions Recorded Confirmed Last Taken B complex-vitamin C-folic acid 1 tab PO DAILY 12/03/20 12/03/20 Unknown [Folbee Plus] acetaminophen 650 mg PO Q4 PRN 12/03/20 12/03/20 Unknown allopurinol [Zyloprim] 100 mg PO DAILY 12/03/20 12/03/20 Unknown ascorbic acid (vitamin C) [Vitamin 500 mg PO BID 12/03/20 12/03/20 Unknown C] cholecalciferol (vitamin D3) 50 mcg PO DAILY 12/03/20 12/03/20 Unknown [Vitamin D3] divalproex [Depakote Sprinkles] 250 mg PO BID 12/03/20 12/03/20 Unknown escitalopram oxalate 10 mg PO DAILY 12/03/20 12/03/20 Unknown famotidine [Pepcid] 20 mg PO BID 12/03/20 12/03/20 Unknown levothyroxine 88 mcg PO DAILY 12/03/20 12/03/20 Unknown melatonin 5 mg PO HS 12/03/20 12/03/20 Unknown memantine 28 mg PO DAILY 12/03/20 12/03/20 Unknown quetiapine [Seroquel] 100 mg PO TID 12/03/20 12/03/20 Unknown sennosides-docusate sodium 3 tab-cap PO BID 12/03/20 12/03/20 Unknown [Senna-S] zinc sulfate 220 mg PO DAILY 12/03/20 12/03/20 Unknown Active Medications Generic Name Dose Route Start Last Admin Trade Name Freq PRN Reason Stop Dose Admin Acetaminophen 650 mg 12/04/20 01:08 12/04/20 23:36 Acetaminophen 325 Mg Tab PO 01/03/21 01:07 650 mg Q4 PRN Administration Fever Or Pain Allopurinol 100 mg 12/04/20 09:00 12/05/20 08:59 Allopurinol 100 Mg Tab PO 01/03/21 08:59 100 mg DAILY SOFY Administration Ascorbic Acid 500 mg 12/04/20 09:00 12/05/20 08:58 Ascorbic Acid 500 Mg Tab PO 01/03/21 08:59 500 mg BID SOFY Administration Divalproex Sodium 250 mg 12/04/20 09:00 12/05/20 08:58 Divalproex Sodium Sprinkle 125 Mg Cap PO 01/03/21 08:59 250 mg BID SOFY Administration Escitalopram Oxalate 10 mg 12/04/20 09:00 12/05/20 08:59 Escitalopram Oxalate 10 Mg Tab PO 01/03/21 08:59 10 mg DAILY SOFY Administration Famotidine 20 mg 12/04/20 09:00 12/05/20 08:58 Famotidine 20 Mg Tab PO 01/03/21 08:59 20 mg BID SOFY Administration Sodium Chloride 1,000 mls @ 125 mls/hr 12/03/20 21:30 12/05/20 01:40 Nss 1000ml IV 01/02/21 21:29 125 mls/hr .Q8H SOFY Administration Ceftriaxone Sodium 1,000 mg/ 50 mls @ 100 mls/hr 12/04/20 08:00 12/05/20 08:17 Dextrose IV 12/14/20 07:59 Infused Q24H SOFY Infusion Protocol Levothyroxine Sodium 88 mcg 12/04/20 06:30 12/05/20 05:44 Levothyroxine Sodium 88 Mcg Tablet PO 01/03/21 06:29 88 mcg DAILYBB SOFY Administration Quetiapine Fumarate 100 mg 12/04/20 09:00 12/05/20 08:58 Quetiapine Fumarate 100 Mg Tablet PO 01/03/21 08:59 100 mg TID SOFY Administration Senna/Docusate Sodium 3 tab 12/04/20 09:00 12/05/20 08:59 Docusate Sodium/Senna 50/8.6mg Tab PO 01/03/21 08:59 3 tab BID SOFY Administration Vitamin B Complex 1 tab 12/04/20 09:00 12/05/20 08:59 Vitamin B Complex Tab PO 01/03/21 08:59 1 tab DAILY SOFY Administration Vitamin D 2,000 units 12/04/20 09:00 12/05/20 08:59 Cholecalciferol 1,000 Units 25 Mcg Tab PO 01/03/21 08:59 2,000 units DAILY SOFY Administration Past Medical History Medical History (Updated 12/05/20 @ 09:39 by Ralf Vázquez MD) Acute kidney injury Acute metabolic encephalopathy Anemia Choledocholithiasis Esophagitis Frontotemporal dementia History of biliary stent insertion Hypertension Hypothyroidism Palliative care encounter Sepsis Past Surgical History Surgical History (Updated 12/05/20 @ 09:36 by Ralf Vázquez MD) History of ERCP S/P laparoscopic cholecystectomy Social History Smoking Status: Never smoker Hx Alcohol Use: No Hx Substance Use: No Physical Exam Vital Signs Last Vital Signs Temp 36.3 C L 12/05/20 08:00 Pulse 92 H 12/05/20 08:00 Resp 18 12/05/20 08:00 BP 111/68 12/05/20 08:00 Pulse Ox 97 12/05/20 08:00 Testing Laboratory Results 12/05/20 06:21 12/05/20 06:21 PT 11.7 Seconds (9.0-12.0) 12/03/20 21:17 INR 1.1 (0.9-1.1) 12/03/20 21:17 APTT 32.8 Seconds (21.0-31.0) H 12/03/20 21:17 Urine Color Dark Yellow 12/03/20 21:18 Urine Appearance Clear (Clear) 12/03/20 21:18 Urine pH 6.0 (4.5-7.5) 12/03/20 21:18 Ur Specific [place] 1.026 (1.000-1.030) 12/03/20 21:18 Urine Protein 1+ (Negative) H 12/03/20 21:18 Urine Glucose (UA) Negative (Negative) 12/03/20 21:18 Urine Ketones 1+ (Negative) H 12/03/20 21:18 Urine Nitrite Negative (Negative) 12/03/20 21:18 Ur Leukocyte Esterase Trace (Negative) H 12/03/20 21:18 Urine WBC (Auto) 1-5 /hpf (0-5) 12/03/20 21:18 Urine RBC (Auto) 0-4 /hpf (0-4) 12/03/20 21:18 U Hyaline Cast (Auto) 1-5 /lpf (0-5) 12/03/20 21:18 U Epithel Cells (Auto) 5-10 /lpf (0-5) H 12/03/20 21:18 Urine Bacteria (Auto) Negative (Negative) 12/03/20 21:18 12/03/20 21:32 Aerobic Blood Culture - Preliminary Blood No growth in Aerobic bottle after 24 hours. Anaerobic Blood Culture - Preliminary No growth in Anaerobic bottle after 24 hours. 12/03/20 21:18 Aerobic Blood Culture - Preliminary Blood No growth in Aerobic bottle after 24 hours. Anaerobic Blood Culture - Preliminary No growth in Anaerobic bottle after 24 hours. 12/03/20 COVID test negative Electrocardiogram Date: 12/03/20 Findings: + ST @ (104) Chest X-Ray Date: 12/03/20 Findings: + NAD
[2020-12-05] MEDS ORDERED: PROPOFOL IV EMULSION 10 MG/ML 20 ML VIAL IV ONE ×3 (13:09→14:25)
[2020-12-05] MEDS ORDERED: fentaNYL citrate 100 MCG/2 ML VIAL ONE (13:09)
[2020-12-05] MEDS ORDERED: LIDOCAINE HCL 2% 2 ML VIAL/AMP(20MG/ML) INFIL ONE (13:09)
[2020-12-05] MEDS ORDERED: ePHEDrine sulfate 50 MG/ML AMP IV PRN (13:21)
[2020-12-05] MEDS ORDERED: ATROPINE SULFATE 0.1 MG/ML 10ML SYR IV PRN (13:21)
[2020-12-05] MEDS ORDERED: ONDANSETRON INJ 2 MG/ML 2 ML VIAL IV PRN (13:21)
[2020-12-05] MEDS ORDERED: fentaNYL citrate 100 MCG/2 ML VIAL IV PRN (13:21)
--- NOTE | 2020-12-05 14:00 | History & Physical Bridge Note ---
Date of Service December 05, 2020 History & Physical Bridge Note I have examined the patient, reviewed the History & Physical and in the interval since the performance of the History & Physical I have noted the following changes of clinical significance: no changes noted EUS/ERCP.
--- NOTE | 2020-12-05 14:47 | Operative Report ---
Post Operative Report Pre & Post Diagnosis Operation Date: 12/05/20 07:00 Pre-Op Diagnosis: Sepsis Post-Op Diagnosis: Common Bile Duct Stone I identified the patient and participated in the time-out.: Yes Procedure Operation Date: 12/05/20 07:00 Actual Procedures p ERCP with Stent Removal(Not Applicable) - Franki Monk MD Surgeon Franki Monk MD Inspector Repairer None Estimated Blood Loss 0 Findings See Below (CBD stent removed) Specimens None Description of Procedure EUS/ERCP I attest to the content of the Intraoperative Record and any orders documented therein. Any exceptions are noted below.
--- NOTE | 2020-12-05 15:03 | GI REPORT ---
Patient Name: Ki Lozano Procedure Date: 12/05/2020 2:03 PM Date of : 1960 Admit Type: Inpatient Age: 60 Gender: Male Attending MD: Franki Monk MD Procedure: Upper EUS Providers: Franki Monk MD Referring MD: Andrae Barth, Lebron Ventura Md Indications: Abnormal abdominal/pelvic CT scan Medicines: Propofol per Anesthesia Complications: No immediate complications. Estimated Blood Loss: Estimated blood loss: none. Procedure: Pre-Anesthesia Assessment: - Prior to the procedure, a History and Physical was performed, and patient medications, allergies and sensitivities were reviewed. The patient's tolerance of previous anesthesia was reviewed. - The alternatives, risks and benefits of the procedure were discussed at length with the patient's spouse. The patient's proxy verbalized understanding of the risks as well as the alternatives and wished to proceed with the procedure. - Patient identification and proposed procedure were verified prior to the procedure by the physician and the nurse. The procedure was verified in the procedure room. After obtaining informed consent, the endoscope was passed under direct vision. Throughout the procedure, the patient's blood pressure, pulse, and oxygen saturations were monitored continuously. The scope was introduced through the mouth, and advanced to the second part of duodenum. The upper EUS was accomplished without difficulty. The patient tolerated the procedure well. Findings: ENDOSONOGRAPHIC FINDING: : There was no sign of significant endosonographic abnormality in the ampulla. No masses were identified. One stent was visualized endosonographically in the common bile duct. Debris noted in the duct. Few stones were visualized endosonographically in the remnant gallbladder (prior subtotal cholecystectomy). It was hyperechoic and characterized by shadowing. The wall of the gallbladder is thickened and inflammed. There was no sign of significant endosonographic abnormality in the visualized portion of the liver. Homogeneous parenchyma was identified. There was no sign of significant endosonographic abnormality in the pancreas. The pancreatic duct measured up to 2 mm in diameter. A small amount of fluid, visualized as a triangular anechoic heterogenous structure, was found in the subhepatic/ gallbladder fossa area and adjacent to the remnant gallbladder. This is not mature with no surrounding wall hence not drainable. A few enlarged lymph nodes were visualized in the su hepatis region. The nodes were triangular, heterogenous and had well defined margins. Impression: - There was no sign of significant pathology in the ampulla. - One stent was visualized endosonographically in the common bile duct. - Stones visualized endosonographically in the remnant gallbladder with evidence of cholecystitis. - There was no evidence of significant pathology in the visualized portion of the liver. - There was no sign of significant pathology in the entire pancreas. - A few enlarged lymph nodes were visualized in the su hepatis region likely reactive inflammatory nodes. - No drainable fluid collection. - No specimens collected. Recommendation: - Perform an ERCP today. Franki Monk MD 12/05/2020 3:03:26 PM This report has been signed electronically. Note Initiated On: 12/05/2020 2:03 PM Number of Addenda: 0 I attest to the content of the Intraoperative Record and orders documented therein, exceptions below {[id number]}
--- NOTE | 2020-12-05 15:08 | Fluoroscopy Report ---
[place] ERCP biliary ductal CLINICAL HISTORY: ERCP COMPARISON STUDY: CT of the abdomen and pelvis December 03, 2020. Fluoroscopic images from ERCP Octob er 2019. FLUOROSCOPY TIME: 1 minute and 47 seconds. FLUOROSCOPIC IMAGES: 9 FINDINGS: Fluoroscopy provided during ERCP. Initial images demonstrate the biliary stent. Subsequent images demonstrate a balloon sweep through the common bile duct. Contrast within the duodenum and dis ney pancreatic duct. Cystic duct stump is opacified on several images. A suspected diverticulum of th e medial aspect of the second portion of the duodenum is noted. IMPRESSION: Fluoroscopy provided during air CP with biliary stent removal. ACT 112: Negative or not required by law. Electronically signed by: Emile Reese M.D. 12/05/2020 3:07 PM
--- NOTE | 2020-12-05 15:16 | GI REPORT ---
Patient Name: Ki Lozano Procedure Date: 12/05/2020 1:31 PM Date of : 1960 Admit Type: Inpatient Age: 60 Gender: Male Attending MD: Franki Monk MD Procedure: ERCP Providers: Franki Monk MD Referring MD: Andrae Barth, Lebron Ventura Md Indications: Biliary stent removal Medicines: Propofol per Anesthesia Complications: No immediate complications. Estimated Blood Loss: Estimated blood loss: none. Procedure: Pre-Anesthesia Assessment: - Prior to the procedure, a History and Physical was performed, and patient medications, allergies and sensitivities were reviewed. The patient's tolerance of previous anesthesia was reviewed. - The risks and benefits of the procedure and the sedation options and risks were discussed with the patient. All questions were answered and informed consent was obtained. - Patient identification and proposed procedure were verified prior to the procedure by the physician and the nurse. The procedure was verified in the procedure room. - Pre-procedure physical examination revealed no contraindications to sedation. After obtaining informed consent, the scope was passed under direct vision. Throughout the procedure, the patient's blood pressure, pulse, and oxygen saturations were monitored continuously. The Scope was introduced through the mouth, and advanced to the duodenum and used to inject contrast into the bile duct. The ERCP was accomplished without difficulty. The patient tolerated the procedure well. Findings: A biliary stent was visible on the yard brakeman film. The esophagus was successfully intubated under direct vision. The scope was advanced to a normal major papilla in the descending duodenum without detailed examination of the pharynx, larynx and associated structures, and upper GI tract. The upper GI tract was grossly normal. The major papilla was on the rim of a diverticulum. One plastic biliary stent originating in the common bile duct was emerging from the major papilla. A biliary sphincterotomy had been performed. The sphincterotomy appeared open. One stent was removed from the common bile duct using a snare. A 0.035 inch straight standard wire was passed into the biliary tree. The Fusion OMNI sphincterotome was passed over the guidewire and the bile duct was then deeply cannulated. Contrast was injected. I personally interpreted the bile duct images. Ductal flow of contrast was adequate. Image quality was adequate. Contrast extended to the main bile duct. Opacification of the entire biliary tree except for the gallbladder was successful. The maximum diameter of the ducts was 8 mm. The biliary tree was swept with a 15 mm balloon starting at the bifurcation. Debris was swept from the duct. Sludge was swept from the duct. Impression: - One stent was removed from the common bile duct. - The biliary tree was swept and debris and sludge were found. - Likely has cholecystitis of the remnant gallbladder. Recommendation: - Return patient to [facility] for [facility] care. - Use IV Zosyn to broaden the spectrum of IV ABx and target acute cholecystitis. - If continues to spike fever then consider IR guided drainage of the fluid collection in the GB fossa, if the agrees as she declined more interventions given patient is on comfort care only.. Franki Monk MD 12/05/2020 3:15:51 PM This report has been signed electronically. Note Initiated On: 12/05/2020 1:31 PM Number of Addenda: 0 I attest to the content of the Intraoperative Record and orders documented therein, exceptions below {[id number]}
--- NOTE | 2020-12-05 15:34 | Anesthesiology Progress Note ---
Date of Service December 05, 2020 Anesthesia Post Procedure Vital Signs Vital Signs: Temp Pulse Pulse Resp BP BP Pulse Ox 12/05/20 15:30 103 H 16 109/62 98 12/05/20 15:25 37.0 C 103 H 16 98/61 L 99 12/05/20 15:15 103 H 12 99/65 L 99 12/05/20 15:05 105 H 17 96/57 L 98 12/05/20 14:55 36.9 C 112 H 18 94/61 L 99 12/05/20 13:20 37.7 C H 103 H 18 120/74 98 12/05/20 08:00 36.3 C L 92 H 18 111/68 97 12/05/20 00:29 37.0 C 90 12/04/20 23:30 38.2 C H 105 H 16 128/78 98 12/04/20 16:15 37.4 C 109 H 18 134/83 94 Transfer of Care Handoff Completed per policy Notes Mental Status: alert / awake / arousable and participated in evaluation Patient Amnestic to Procedure: Yes Nausea / Vomiting: adequately controlled Pain: adequately controlled Airway Patency, RR, SpO2: stable & adequate BP & HR: stable & adequate Hydration State: stable & adequate Anesthetic Complications: no major complications apparent and Pt Satisfied with anesthetic care
--- NOTE | 2020-12-05 16:08 | Hospitalist Progress Note ---
Date of Service December 05, 2020 Assessment & Plan (1) History of biliary duct stent placement: Sepsis likely 2/2 GI source, infected biliary stent. Was placed with plan for removal in 11/2020, but he was Covid-positive and this was rescheduled. - S/p ERCP on 12/[address] Monk with sludge. - Switch to Zosyn. Re-culture as well. (2) Sepsis: Sepsis likely 2/2 GI source (3) Frontotemporal dementia: Severe. Aphasic at baseline. - Continue home memantine, Seroquel. Continue home Depakote. - Palliative care consult placed as patient has been under palliative care service in the past, with goal to discuss goals of care with patient's and determine home versus inpatient status for antibiotics/hospice care. (4) Hypothyroidism: TSH was 3.77 this admission. No signs/symptoms of hypo-/hyperthyroidism. - Continue home Synthroid 88 mcg (5) DVT prophylaxis: Heparin 5000 units SQ Q12h Admission and Anticipated Discharge Date Admission Date: December 04, 2020 Subjective Aphasic. Review of Systems Review of Systems: Unobtainable due to cognitive status Physical Exam Constitutional: + ill appearing and + disheveled Eyes: EOM intact bilaterally; no conjunctival abnormality ENMT: external ear and nose normal, oropharynx normal Neck: trachea midline, no thyromegaly normal visual inspection Respiratory: normal respiratory effort, lungs clear to auscultation no respiratory distress Cardiovascular: RRR, no murmur, no edema Gastrointestinal (Abdomen): Inspection/Auscultation: abdomen normal to inspection; abdomen not distended Musculoskeletal: no cyanosis or clubbing, extremities motor strength 5/5 Skin: no rashes, warm and dry Neurologic: moves all extremities and awake Psychiatric: Eye Contact: + poor eye contact (Makes eye contact, then looks around and has no responses.) Results & Data Results & Data ([facility]) Vital Signs (Past 12 Hours) Vital Signs Temp Pulse Pulse Resp BP BP Pulse Ox 12/05/20 15:48 39.0 C H 77 14 105/72 96 12/05/20 15:35 103 H 15 98/62 L 99 12/05/20 15:30 103 H 16 109/62 98 12/05/20 15:25 37.0 C 103 H 16 98/61 L 99 12/05/20 15:15 103 H 12 99/65 L 99 12/05/20 15:05 105 H 17 96/57 L 98 12/05/20 14:55 36.9 C 112 H 18 94/61 L 99 12/05/20 13:20 37.7 C H 103 H 18 120/74 98 12/05/20 08:00 36.3 C L 92 H 18 111/68 97 PG Care Time/CCT Total # of Minutes Spent Total Time Spent with Patient: Total time spent is greater than 50% in coor dination of care (as documented) at patient's floor/unit and/or counseling patient: Coding Level of Care Code 56255 Subseq Hosp Care Lvl 2 Diagnoses History of biliary duct stent placement Z98.890 Sepsis A41.9 Sepsis type: sepsis due to unspecified organism Sepsis acute organ dysfunction status: without acute organ dysfunction Frontotemporal dementia G31.09; F02.80 Hypothyroidism E03.9 Hypothyroidism type: unspecified DVT prophylaxis Z29.9 (1) Sepsis Sepsis type: sepsis due to unspecified organism Sepsis acute organ dysfunction status: without acute organ dysfunction Qualified Code(s): A41.9 - Sepsis, unspecified organism (2) Hypothyroidism Hypothyroidism type: unspecified Qualified Code(s): E03.9 - Hypothyroidism, unspecified
[2020-12-05] MEDS ORDERED: PIPERACILL/TAZOBAC CONSULT ACTIVE PRN (16:11)
[2020-12-05] MEDS ORDERED: PIPERACILLIN/TAZOBACTAM 3.375 GM in DEXTROSE 5% 100 ML IV ONE (17:00)
[2020-12-05] MEDS: PIPERACILLIN/TAZOBACTAM 3.375 GM in DEXTROSE 5% 100 ML IV SCH (21:38)
[2020-12-05] MEDS: HEPARIN SOD 5,000 UNIT/0.5 ML VIAL SQ SCH (21:49)
[2020-12-06] MEDS: LEVOTHYROXINE SODIUM 88 MCG TABLET PO SCH (05:48)
[2020-12-06] MEDS: PIPERACILLIN/TAZOBACTAM 3.375 GM in DEXTROSE 5% 100 ML IV SCH ×3 (05:48→21:56)
[2020-12-06 06:44] LABS: Hematocrit (blood only) 35.3 % (42-52); Hemoglobin 11.7 g/dL (14.0-18.0); Mean Corpuscular Hemoglobin 28.5 pg (25-34); Mean Corpuscular Hgb Conc 33.1 g/dL (32-36); Mean Corpuscular Volume 86.1 fL (80-100); Mean Platelet Volume 9.8 fL (7.4-10.4); Platelet Count 230 K/uL (130-400); RDW Coefficient of Variation 12.9 % (11.5-14.5); RDW Standard Deviation 41.1 fL (36.4-46.3); White Blood Count 8.77 K/uL (4.8-10.8)
[2020-12-06 07:11] LABS: Albumin Level 2.2 gm/dl (3.4-5.0); BUN Creatinine Ratio 9.7 (10-20); Calcium 8.7 mg/dl (8.5-10.1); Creatinine Clr Calc Pharmacy 68.6 ml/min; Est GFR (African American) 84.8; Est GFR (Non-African American) 73.2; Potassium 3.8 mmol/L (3.5-5.1)
[2020-12-06 07:19] LABS: Albumin Globulin Ratio 0.5 (0.9-2); Bilirubin,Total 0.6 mg/dl (0.2-1); Globulin 4.2 gm/dl (2.5-4.0); Total Protein 6.4 gm/dl (6.4-8.2)
[2020-12-06] MEDS: QUEtiapine FUMARATE 100 MG TABLET PO SCH ×3 (07:43→21:25)
[2020-12-06] MEDS: DIVALPROEX SODIUM SPRINKLE 125 MG CAP PO SCH ×2 (07:44→21:26)
[2020-12-06] MEDS: allopurinoL 100 MG TAB PO SCH (07:44)
[2020-12-06] MEDS: CHOLECALCIFEROL 1,000 UNITS 25 MCG TAB PO SCH (07:44)
[2020-12-06] MEDS: ASCORBIC ACID 500 MG TAB PO SCH ×2 (07:44→21:25)
[2020-12-06] MEDS: DOCUSATE SODIUM/SENNA 50/8.6MG TAB PO SCH ×2 (07:45→21:26)
[2020-12-06] MEDS: VITAMIN B COMPLEX TAB PO SCH (07:45)
[2020-12-06] MEDS: ESCITALOPRAM OXALATE 10 MG TAB PO SCH (07:45)
[2020-12-06] MEDS: FAMOTIDINE 20 MG TAB PO SCH ×2 (07:45→21:26)
--- NOTE | 2020-12-06 08:32 | Gastroenterology Progress Note ---
Date of Service December 06, 2020 Assessment & Plan (1) History of ERCP: 60 year old male w/ early onset dementia, non-verbal at baseline admitted w/ right hepatic lobe fluid collection and retained bile duct stent. cholecystectomy and ERCPin late August, Unfortunately, The patient did not return for Stent removal at the requested interval due to COVID-19 infection now S/P ERCP for stent removal w/ evidence of some biliary sludge Continue IV zosyn Appreciate ongoing discussion regarding goals of care Please see ERCP report for additional recommendations Recall as needed Attg add: I interviewed and examined pt, reviewed chart and labs. Pt without acute change or events overnight; no abd tenderness on palpation. No further recs; management of cholecystectomy stump with abx per surgery service. Admission and Anticipated Discharge Date Admission Date: December 04, 2020 Subjective S/P ERCP for stent removal ,evidence of sludge Switched to IV Zosyn last evening Did spike fever again this AM. Review of Systems Review of Systems: Unobtainable due to cognitive status Physical Exam Constitutional: + ill appearing; no acute distress Neck: trachea midline Respiratory: normal respiratory effort, lungs clear to auscultation Cardiovascular: Rate/Rhythm: + tachycardic Gastrointestinal (Abdomen): Percussion/Palpation: abdomen soft; abdomen nontender Skin: no rashes, warm and dry Results & Data ([facility]) Vital Signs (Past 12 Hours) Vital Signs Temp Pulse Resp BP BP Pulse Ox 12/06/20 04:15 37.7 C H 104 H 17 110/70 93 12/05/20 23:27 36.7 C 96 H 127/72 97 Laboratory Results 12/06/20 12/06/20 Range/Units 06:13 06:13 WBC 8.77 (4.8-10.8) K/uL RBC 4.10 L (4.7-6.1) M/uL Hgb 11.7 L (14.0-18.0) g/dL Hct 35.3 L (42-52) % MCV 86.1 (80-100) fL MCH 28.5 (25-34) pg MCHC 33.1 (32-36) g/dL RDW Std Deviation 41.1 (36.4-46.3) fL RDW Coeff of Stella 12.9 (11.5-14.5) % Plt Count 230 (130-400) K/uL MPV 9.8 (7.4-10.4) fL Sodium 140 (136-145) mmol/L Potassium 3.8 (3.5-5.1) mmol/L Chloride 106 (98-107) mmol/L Carbon Dioxide 25 (21-32) mmol/L Anion Gap 9.0 (3-11) BUN 11 (7-18) mg/dl Creatinine 1.08 (0.6-1.4) mg/dl Est Cr Clr Drug Dosing 68.6 ml/min Est GFR ( Amer) 84.8 Est GFR (Non-Af Amer) 73.2 BUN/Creatinine Ratio 9.7 L (10-20) Glucose 90 (70-99) mg/dl Calcium 8.7 (8.5-10.1) mg/dl Magnesium 2.0 (1.8-2.4) mg/dl Total Bilirubin 0.6 (0.2-1) mg/dl AST 45 H (15-37) U/L ALT 46 (12-78) U/L Alkaline Phosphatase 144 H D (45-117) U/L Total Protein 6.4 (6.4-8.2) gm/dl Albumin 2.2 L (3.4-5.0) gm/dl Globulin 4.2 H (2.5-4.0) gm/dl Albumin/Globulin Ratio 0.5 L (0.9-2)
[2020-12-06] MEDS: ACETAMINOPHEN 325 MG TAB PO PRN (09:02)
[2020-12-06] MEDS: HEPARIN SOD 5,000 UNIT/0.5 ML VIAL SQ SCH ×2 (09:02→21:26)
--- NOTE | 2020-12-06 14:43 | Hospitalist Progress Note ---
Date of Service December 06, 2020 Assessment & Plan (1) History of biliary duct stent placement: Sepsis likely 2/2 GI source, infected biliary stent. Was placed with plan for removal in 11/2020, but he was Covid-positive and this was rescheduled. - S/p ERCP on 12/[address] Monk with stent removal and sludge found. - Switch to Zosyn. Re-cultured as well. Blood cultures from 12/05 still negative. (2) Sepsis: Sepsis likely 2/2 GI source (3) Frontotemporal dementia: Severe. Aphasic at baseline. - Continue home memantine, Seroquel. Continue home Depakote. - Palliative care consult placed as patient has been under palliative care service in the past, with goal to discuss goals of care with patient's and determine home versus inpatient status for antibiotics/hospice care. (4) Hypothyroidism: TSH was 3.77 this admission. No signs/symptoms of hypo-/hyperthyroidism. - Continue home Synthroid 88 mcg (5) DVT prophylaxis: Heparin 5000 units SQ Q12h Admission and Anticipated Discharge Date Admission Date: December 04, 2020 Subjective No response today. Did say "yes" when I first entered, but not to any question. No further responses. Physical Exam Constitutional: + ill appearing and + disheveled Eyes: EOM intact bilaterally; no conjunctival abnormality ENMT: external ear and nose normal, oropharynx normal Neck: trachea midline, no thyromegaly normal visual inspection Respiratory: normal respiratory effort, lungs clear to auscultation no respiratory distress Cardiovascular: RRR, no murmur, no edema Gastrointestinal (Abdomen): Inspection/Auscultation: abdomen normal to inspection; abdomen not distended Musculoskeletal: no cyanosis or clubbing, extremities motor strength 5/5 Skin: no rashes, warm and dry Neurologic: moves all extremities and awake Psychiatric: Eye Contact: + poor eye contact (Makes eye contact, then looks around and has no responses.) Results & Data Results & Data ([facility]) Vital Signs (Past 12 Hours) Vital Signs Temp Pulse Resp BP BP Pulse Ox 12/06/20 10:12 36.6 C 92 H 18 105/69 94 12/06/20 04:15 37.7 C H 104 H 17 110/70 93 PG Care Time/CCT Total # of Minutes Spent Total Time Spent with Patient: Total time spent is greater than 50% in coordination of care (as documented) at patient's floor/unit and/or counseling patient: Coding Level of Care Code 13631 Subseq Hosp Care Lvl 2 Diagnoses History of biliary duct stent placement Z98.890 Sepsis A41.9 Sepsis type: sepsis due to unspecified organism Sepsis acute organ dysfunction status: without acute organ dysfunction Frontotemporal dementia G31.09; F02.80 Hypothyroidism E03.9 Hypothyroidism type: unspecified DVT prophylaxis Z29.9 (1) Sepsis Sepsis type: sepsis due to unspecified organism Sepsis acute organ dysfunction status: without acute organ dysfunction Qualified Code(s): A41.9 - Sepsis, unspecified organism (2) Hypothyroidism Hypothyroidism type: unspecified Qualified Code(s): E03.9 - Hypothyroidism, unspecified
[2020-12-07] MEDS: PIPERACILLIN/TAZOBACTAM 3.375 GM in DEXTROSE 5% 100 ML IV SCH ×3 (05:49→21:16)
[2020-12-07] MEDS: LEVOTHYROXINE SODIUM 88 MCG TABLET PO SCH (05:51)
[2020-12-07 07:34] LABS: Hematocrit (blood only) 36.3 % (42-52); Hemoglobin 12.5 g/dL (14.0-18.0); Mean Corpuscular Hemoglobin 29.3 pg (25-34); Mean Corpuscular Hgb Conc 34.4 g/dL (32-36); Mean Corpuscular Volume 85.2 fL (80-100); Mean Platelet Volume 10.6 fL (7.4-10.4); Platelet Count 260 K/uL (130-400); RDW Coefficient of Variation 13.2 % (11.5-14.5); RDW Standard Deviation 40.8 fL (36.4-46.3); Red Blood Count 4.26 M/uL (4.7-6.1); White Blood Count 7.07 K/uL (4.8-10.8)
[2020-12-07 08:00] LABS: BUN Creatinine Ratio 8.8 (10-20); Calcium 9.1 mg/dl (8.5-10.1); Creatinine Clr Calc Pharmacy 70.6 ml/min; Est GFR (African American) 87.7; Est GFR (Non-African American) 75.7; Magnesium 2.2 mg/dl (1.8-2.4); Potassium 3.9 mmol/L (3.5-5.1)
[2020-12-07] MEDS: ASCORBIC ACID 500 MG TAB PO SCH ×2 (09:11→20:04)
[2020-12-07] MEDS: VITAMIN B COMPLEX TAB PO SCH (09:11)
[2020-12-07] MEDS: CHOLECALCIFEROL 1,000 UNITS 25 MCG TAB PO SCH (09:11)
[2020-12-07] MEDS: QUEtiapine FUMARATE 100 MG TABLET PO SCH ×3 (09:11→20:05)
[2020-12-07] MEDS: allopurinoL 100 MG TAB PO SCH (09:11)
[2020-12-07] MEDS: DIVALPROEX SODIUM SPRINKLE 125 MG CAP PO SCH ×2 (09:12→20:04)
[2020-12-07] MEDS: DOCUSATE SODIUM/SENNA 50/8.6MG TAB PO SCH ×2 (09:12→20:04)
[2020-12-07] MEDS: FAMOTIDINE 20 MG TAB PO SCH ×2 (09:12→20:05)
[2020-12-07] MEDS: HEPARIN SOD 5,000 UNIT/0.5 ML VIAL SQ SCH ×2 (09:12→20:11)
[2020-12-07] MEDS: ESCITALOPRAM OXALATE 10 MG TAB PO SCH (09:13)
--- NOTE | 2020-12-07 16:07 | Discharge Summary ---
Date of Service December 07, 2020 Principal Diagnosis Infected biliary stent; cholecystitis of gallbladder remnant Discharge Exam Constitutional + ill appearing and + disheveled Eyes EOM intact bilaterally; no conjunctival abnormality ENMT external ear and nose normal, oropharynx normal Neck trachea midline, no thyromegaly normal visual inspection Respiratory normal respiratory effort, lungs clear to auscultation no respiratory distress Cardiovascular RRR, no murmur, no edema Gastrointestinal (Abdomen) Inspection/Auscultation: abdomen normal to inspection; abdomen not distended Musculoskeletal no cyanosis or clubbing, extremities motor strength 5/5 Skin no rashes, warm and dry Neurologic moves all extremities and awake Psychiatric Eye Contact: + poor eye contact (Makes eye contact, then looks around and has no responses.) Discharge Data Allergies Allergy/AdvReac Type Severity Reaction Status Date / Time No Known Allergies Allergy Verified 12/03/20 22:02 Consultations 12/03/20 22:26 ED Decision to Admit Stat 12/04/20 01:21 Consult Gastroenterology Routine 12/04/20 01:22 Consult Case Management - Discharge Planning Routine Procedures Performed Operation Date: 12/05/20 07:00 Actual Procedures p ERCP with Stent Removal, (Not Applicable) - Franki Monk MD s Endoscopic Ultrasonography Upper(Not Applicable) - Franki Monk MD Ordered Studies 12/03/20 21:08 CT abd pelvis IV con only Urgent 12/05/20 07:35 [place] ERCP biliary ductal Routine 12/05/20 13:44 US upper EUS PACS images Routine Hospital Course (1) History of biliary duct stent placement: Sepsis likely 2/2 GI source, infected biliary stent. Was placed with plan for removal in 11/2020, but he was Covid-positive and this was rescheduled. - S/p ERCP on 12/[address] Monk with stent removal and sludge found. - Switch to Zosyn. Re-cultured as well. Blood cultures from 12/05 still negative. - Discussed with his on 12/06. She would like him to return to his [facility] on hospice. We discussed that his infection may not be able to be fully treated with oral antibiotics or even antibiotics in general. She does NOT want a transfer and percutaneous cholecystostomy tube. I discussed that the infection very well may be the reason that he passes away. We will send him on oral antibiotics, but acknowledge that he may not survive. (2) Sepsis: Sepsis likely 2/2 GI source (3) Frontotemporal dementia: Severe. Aphasic at baseline. - Continue home memantine, Seroquel. Continue home Depakote. - Palliative care consult placed as patient has been under palliative care service in the past, with goal to discuss goals of care with patient's and determine home versus inpatient status for antibiotics/hospice care. (4) Hypothyroidism: TSH was 3.77 this admission. No signs/symptoms of hypo-/hyperthyroidism. - Continue home Synthroid 88 mcg (5) DVT prophylaxis: Heparin 5000 units SQ Q12h Total Time Total Time Spent Total Time Spent (In Minutes): 35 Discharge Plan Discharge Items Patient Disposition: Hospice - Medical Facility Reason For Visit: SEPSIS,LIKELY DRAIN INFECTION Discharge Diagnosis: Infected gallbladder drain Activity: Resume your previous activity Non-emergency contact: Primary Care Provider Follow-up/Referrals: Andrae Barth [Primary Care Provider] - Diet: Regular Addtl Attending Provider Instructions: Mr. Lozano had an infected drain from his gallbladder. This was removed, but it is unclear if the infection can be fully cleared with just antibiotics. We will trial 2 weeks of oral antibiotics, though he may pass away from the infection which was discussed with his . Pending Studies at Discharge: No Stand-Alone Forms: My [facility] Skilled Items Patient informed of condition?: No DNR: Yes Discharge Level of Care: Other Communicable Disease: No Discharge Prognosis: Stable Lines: None Urinary Catheter: No Medications and DC Order Prescriptions: New amoxicillin-pot clavulanate [Augmentin] 875-125 mg tablet 1 tab PO BID Qty: 28 RF: 0 Continued Folbee Plus 5 mg tablet 1 tab PO DAILY RF: 0 acetaminophen 325 mg Tablet 650 mg PO Q4 PRN (Reason: Fever Or Pain) RF: 0 sennosides-docusate sodium [Senna-S] 8.6-50 mg Tablet 3 tab-cap PO BID RF: 0 allopurinol [Zyloprim] 100 mg tablet 100 mg PO DAILY RF: 0 quetiapine [Seroquel] 100 mg tablet 100 mg PO TID RF: 0 zinc sulfate 220 mg Tablet 220 mg PO DAILY RF: 0 levothyroxine 88 mcg tablet 88 mcg PO DAILY RF: 0 famotidine [Pepcid] 20 mg tablet 20 mg PO BID RF: 0 ascorbic acid (vitamin C) [Vitamin C] 500 mg Tablet 500 mg PO BID RF: 0 divalproex [Depakote Sprinkles] 125 mg capsule, delayed rel sprinkle 250 mg PO BID RF: 0 escitalopram oxalate 10 mg tablet 10 mg PO DAILY RF: 0 melatonin 5 mg Tablet 5 mg PO HS RF: 0 cholecalciferol (vitamin D3) [Vitamin D3] 50 mcg (2,000 unit) Tablet 50 mcg PO DAILY RF: 0 memantine 28 mg capsule,sprinkle,ER 24hr 28 mg PO DAILY RF: 0 Discharge Orders: Discharge Order (Routine); Ordered 12/07/20 Ordered By: Lebron Ventura Admission Data Admit Date/Time: 12/04/20 13:13 Attending Provider: Lebron Ventura Admit Provider: Roxanne Hicks Primary Care Provider: Andrae Barth Other Providers: Kvng Womack ; Lebron Ventura ; Kyle Carrasco ; Andrew Maldonado Other Interventions: Discharge Summary Assessment (RN) Last Done: 12/07/20 14:19 Coding Level of Care Code D/C Day Management >30 mins Diagnoses History of biliary duct stent placement Z98.890 Sepsis A41.9 Sepsis type: sepsis due to unspecified organism Sepsis acute organ dysfunction status: without acute organ dysfunction Frontotemporal dementia G31.09; F02.80 Hypothyroidism E03.9 Hypothyroidism type: unspecified DVT prophylaxis Z29.9
--- NOTE | 2020-12-07 17:36 | Hospitalist Progress Note ---
Date of Service December 07, 2020 Assessment & Plan (1) History of biliary duct stent placement: Sepsis likely 2/2 GI source, infected biliary stent. Was placed with plan for removal in 11/2020, but he was Covid-positive and this was rescheduled. - S/p ERCP on 12/[address] Monk with stent removal and sludge found. - Switch to Zosyn. Re-cultured as well. Blood cultures from 12/05 still negative. - Discussed with his on 12/06. Plan for discharge when stable with hospice. (2) Sepsis: Sepsis likely 2/2 GI source (3) Frontotemporal dementia: Severe. Aphasic at baseline. - Continue home memantine, Seroquel. Continue home Depakote. - Palliative care consult placed as patient has been under palliative care service in the past, with goal to discuss goals of care with patient's and determine home versus inpatient status for antibiotics/hospice care. (4) Hypothyroidism: TSH was 3.77 this admission. No signs/symptoms of hypo-/hyperthyroidism. - Continue home Synthroid 88 mcg (5) DVT prophylaxis: Heparin 5000 units SQ Q12h Admission and Anticipated Discharge Date Admission Date: December 04, 2020 Subjective No change today. Aphasic. Physical Exam Constitutional: + ill appearing and + disheveled Eyes: EOM intact bilaterally; no conjunctival abnormality ENMT: external ear and nose normal, oropharynx normal Neck: trachea midline, no thyromegaly normal visual inspection Respiratory: normal respiratory effort, lungs clear to auscultation no respiratory distress Cardiovascular: RRR, no murmur, no edema Gastrointestinal (Abdomen): Inspection/Auscultation: abdomen normal to inspection; abdomen not distended Musculoskeletal: no cyanosis or clubbing, extremities motor strength 5/5 Skin: no rashes, warm and dry Neurologic: moves all extremities and awake Psychiatric: Eye Contact: + poor eye contact (Makes eye contact, then looks around and has no responses.) Results & Data Results & Data ([facility]) Vital Signs (Past 12 Hours) Vital Signs Temp Pulse Pulse Pulse Resp BP BP 12/07/20 16:58 36.8 C 90 16 97/60 L 12/07/20 14:19 36.7 C 77 83 97 H 18 110/70 108/74 12/07/20 08:08 36.7 C 83 18 108/74 Pulse Ox 12/07/20 16:58 93 12/07/20 14:19 96 12/07/20 08:08 96 PG Care Time/CCT Total # of Minutes Spent Total Time Spent with Patient: Total time spent is greater than 50% in coordination of care (as documented) at patient's floor/unit and/or counseling patient: Coding Level of Care Code 72102 Subseq Hosp Care Lvl 1 Diagnoses History of biliary duct stent placement Z98.890 Sepsis A41.9 Sepsis type: sepsis due to unspecified organism Sepsis acute organ dysfunction status: without acute organ dysfunction Frontotemporal dementia G31.09; F02.80 Hypothyroidism E03.9 Hypothyroidism type: unspecified DVT prophylaxis Z29.9 (1) Sepsis Sepsis type: sepsis due to unspecified organism Sepsis acute organ dys function status: without acute organ dysfunction Qualified Code(s): A41.9 - Sepsis, unspecified organism (2) Hypothyroidism Hypothyroidism type: unspecified Qualified Code(s): E03.9 - Hypothyroidism, unspecified
[2020-12-08] MEDS: PIPERACILLIN/TAZOBACTAM 3.375 GM in DEXTROSE 5% 100 ML IV SCH ×2 (05:04→14:17)
[2020-12-08] MEDS: LEVOTHYROXINE SODIUM 88 MCG TABLET PO SCH (05:04)
[2020-12-08 07:19] LABS: Creatinine Clr Calc Pharmacy 71.9 ml/min; Est GFR (African American) 89.8; Est GFR (Non-African American) 77.5
[2020-12-08] MEDS: ESCITALOPRAM OXALATE 10 MG TAB PO SCH (09:08)
[2020-12-08] MEDS: DOCUSATE SODIUM/SENNA 50/8.6MG TAB PO SCH ×2 (09:09→22:23)
[2020-12-08] MEDS: CHOLECALCIFEROL 1,000 UNITS 25 MCG TAB PO SCH (09:09)
[2020-12-08] MEDS: VITAMIN B COMPLEX TAB PO SCH (09:09)
[2020-12-08] MEDS: ASCORBIC ACID 500 MG TAB PO SCH (09:09)
[2020-12-08] MEDS: QUEtiapine FUMARATE 100 MG TABLET PO SCH ×3 (09:10→22:23)
[2020-12-08] MEDS: HEPARIN SOD 5,000 UNIT/0.5 ML VIAL SQ SCH (09:10)
[2020-12-08] MEDS: DIVALPROEX SODIUM SPRINKLE 125 MG CAP PO SCH ×2 (09:10→22:23)
[2020-12-08] MEDS: FAMOTIDINE 20 MG TAB PO SCH ×2 (09:10→22:22)
[2020-12-08] MEDS: allopurinoL 100 MG TAB PO SCH (09:11)
--- NOTE | 2020-12-08 16:49 | Hospitalist Progress Note ---
Date of Service December 08, 2020 Assessment & Plan (1) Comfort measures only status: Discussed with his on 12/08. When he was mentally capable, he was clear that he would not want aggressive medical measures at this point in his life. She would like to make him comfort measures only. Given the fact that his infection may not be curable without more medical procedures, I think this is entirely reasonable. - Made comfort measures only. His will likely visit him in the hospital ton ight or tomorrow. (2) History of biliary duct stent placement: Sepsis likely 2/2 GI source, infected biliary stent. Was placed with plan for removal in 11/2020, but he was Covid-positive and this was rescheduled. - S/p ERCP on 12/[address] Monk with stent removal and sludge found. - Switch to Zosyn. Re-cultured as well. Blood cultures from 12/05 still negative. - Discussed with his on 12/06. Plan for discharge when stable with hospice. (3) Sepsis: Sepsis likely 2/2 GI source (4) Frontotemporal dementia: Severe. Aphasic at baseline. - Continue home memantine, Seroquel. Continue home Depakote. - Palliative care consult placed as patient has been under palliative care service in the past, with goal to discuss goals of care with patient's and determine home versus inpatient status for antibiotics/hospice care. (5) Hypothyroidism: TSH was 3.77 this admission. No signs/symptoms of hypo-/hyperthyroidism. - Continue home Synthroid 88 mcg (6) DVT prophylaxis: Heparin 5000 units SQ Q12h Admission and Anticipated Discharge Date Admission Date: December 04, 2020 Subjective No change today. Aphasic. Review of Systems Review of Systems: Unobtainable due to cognitive status Physical Exam Constitutional: + ill appearing and + disheveled Eyes: EOM intact bilaterally; no conjunctival abnormality ENMT: external ear and nose normal, oropharynx normal Neck: trachea midline, no thyromegaly normal visual inspection Respiratory: normal respiratory effort, lungs clear to auscultation no respiratory distress Cardiovascular: RRR, no murmur, no edema Gastrointestinal (Abdomen): Inspection/Auscultation: abdomen normal to inspection; abdomen not distended Musculoskeletal: no cyanosis or clubbing, extremities motor strength 5/5 Skin: no rashes, warm and dry Neurologic: moves all extremities and awake Psychiatric: Eye Contact: + poor eye contact (Makes eye contact, then looks around and has no responses.) Results & Data Results & Data ([facility]) Vital Signs (Past 12 Hours) Vital Signs Temp Pulse Resp BP Pulse Ox 12/08/20 15:01 37 C 88 18 111/72 96 12/08/20 07:29 80 18 91/61 L 97 PG Care Time/CCT Total # of Minutes Spent Total Time Spent with Patient: Total time spent is greater than 50% in coordination of care (as documented) at patient's floor/unit and/or counseling patient: Coding Level of Care Code 27921 Subseq Hosp Care Lvl 2 Diagnoses Comfort measures only status Z51.5 History of biliary duct stent placement Z98.890 Sepsis A41.9 Sepsis type: sepsis due to unspecified organism Sepsis acute organ dysfunction status: without acute organ dysfunction Frontotemporal dementia G31.09; F02.80 Hypothyroidism E03.9 Hypothyroidism type: unspecified DVT prophylaxis Z29.9 (1) Sepsis Sepsis type: sepsis due to unspecified organism Sepsis acute organ dysfunction status: without acute organ dysfunction Qualified Code(s): A41.9 - Sepsis, unspecified organism (2) Hypothyroidism Hypothyroidism type: unspecified Qualified Code(s): E03.9 - Hypothyroidism, unspecified
[2020-12-09] MEDS: LEVOTHYROXINE SODIUM 88 MCG TABLET PO SCH (06:38)
[2020-12-09] MEDS: DIVALPROEX SODIUM SPRINKLE 125 MG CAP PO SCH ×2 (09:40→20:23)
[2020-12-09] MEDS: ESCITALOPRAM OXALATE 10 MG TAB PO SCH (09:41)
[2020-12-09] MEDS: FAMOTIDINE 20 MG TAB PO SCH ×2 (09:42→20:22)
[2020-12-09] MEDS: allopurinoL 100 MG TAB PO SCH (09:43)
[2020-12-09] MEDS: QUEtiapine FUMARATE 100 MG TABLET PO SCH ×3 (09:43→20:23)
[2020-12-09] MEDS: DOCUSATE SODIUM/SENNA 50/8.6MG TAB PO SCH ×2 (09:44→20:23)
--- NOTE | 2020-12-09 14:23 | Hospitalist Progress Note ---
Date of Service December 09, 2020 Assessment & Plan (1) Comfort measures only status: Discussed with his on 12/08. When he was mentally capable, he was clear that he would not want aggressive medical measures at this point in his life. She would like to make him comfort measures only. Given the fact that his infection may not be curable without more medical procedures, I think this is entirely reasonable. - Made comfort measures only. His will likely visit him in the hospital. (2) History of biliary duct stent placement: Sepsis likely 2/2 GI source, infected biliary stent. Was placed with plan for removal in 11/2020, but he was Covid-positive and this was rescheduled. - S/p ERCP on 12/[address] Monk with stent removal and sludge found. - Switch to Zosyn. Re-cultured as well. Blood cultures from 12/05 still negative. - Discussed with his on 12/06. Plan for discharge when stable with hospice. No change today. So far vitals stable. (3) Sepsis: Sepsis likely 2/2 GI source (4) Frontotemporal dementia: Severe. Aphasic at baseline. - Continue home memantine, Seroquel. Continue home Depakote. - Palliative care consult placed as patient has been under palliative care service in the past, with goal to discuss goals of care with patient's and determine home versus inpatient status for antibiotics/hospice care. (5) Hypothyroidism: TSH was 3.77 this admission. No signs/symptoms of hypo-/hyperthyroidism. - Continue home Synthroid 88 mcg (6) DVT prophylaxis: Heparin 5000 units SQ Q12h Admission and Anticipated Discharge Date Admission Date: December 04, 2020 Subjective Aphasic. Review of Systems Review of Systems: Unobtainable due to cognitive status Physical Exam Constitutional: + ill appearing and + disheveled Eyes: EOM intact bilaterally; no conjunctival abnormality ENMT: external ear and nose normal, oropharynx normal Neck: trachea midline, no thyromegaly normal visual inspection Respiratory: normal respiratory effort, lungs clear to auscultation no respiratory distress Cardiovascular: RRR, no murmur, no edema Gastrointestinal (Abdomen): Inspection/Auscultation: abdomen normal to inspection; abdomen not distended Musculoskeletal: no cyanosis or clubbing, extremities motor strength 5/5 Skin: no rashes, warm and dry Neurologic: moves all extremities and awake Psychiatric: Eye Contact: + poor eye contact (Makes eye contact, then looks around and has no responses.) PG Care Time/CCT Total # of Minutes Spent Total Time Spent with Patient: Total time spent is greater than 50% in coordination of care (as documented) at patient's floor/unit and/or counseling patient: Coding Level of Care Code 03931 Subseq Hosp Care Lvl 2 Diagnoses Comfort measures only status Z51.5 History of biliary duct stent placement Z98.890 Sepsis A41.9 Sepsis type: sepsis due to unspecified organism Sepsis acute organ dysfunction status: without acute organ dysfunction Frontotemporal dementia G31.09; F02.80 Hypothyroidism E03.9 Hypothyroidism type: unspecified DVT prophylaxis Z29.9 (1) Sepsis Sepsis type: sepsis due to unspecified organism Sepsis acute organ dysfunction status: without acute organ dysfunction Qualified Code(s): A41.9 - Sepsis, unspecified organism (2) Hypothyroidism Hypothyroidism type: unspecified Qualified Code(s): E03.9 - Hypothyroidism, unspecified
[2020-12-10] MEDS: LEVOTHYROXINE SODIUM 88 MCG TABLET PO SCH (06:23)
[2020-12-10] MEDS: ESCITALOPRAM OXALATE 10 MG TAB PO SCH (09:15)
[2020-12-10] MEDS: allopurinoL 100 MG TAB PO SCH (09:16)
[2020-12-10] MEDS: DIVALPROEX SODIUM SPRINKLE 125 MG CAP PO SCH ×2 (09:16→20:22)
[2020-12-10] MEDS: FAMOTIDINE 20 MG TAB PO SCH ×2 (09:16→20:23)
[2020-12-10] MEDS: QUEtiapine FUMARATE 100 MG TABLET PO SCH ×3 (09:17→20:22)
[2020-12-10] MEDS: DOCUSATE SODIUM/SENNA 50/8.6MG TAB PO SCH ×2 (09:17→20:22)
--- NOTE | 2020-12-10 21:49 | Hospitalist Progress Note ---
Date of Service December 10, 2020 Assessment & Plan (1) Comfort measures only status: Discussed with his on 12/08. When he was mentally capable, he was clear that he would not want aggressive medical measures at this point in his life. She would like to make him comfort measures only. Given the fact that his infection may not be curable without more medical procedures, I think this is entirely reasonable. - Made comfort measures only. His will likely visit him in the hospital. (2) History of biliary duct stent placement: Sepsis likely 2/2 GI source, infected biliary stent. Was placed with plan for removal in 11/2020, but he was Covid-positive and this was rescheduled. - S/p ERCP on 12/[address] Monk with stent removal and sludge found. - Switch to Zosyn. Re-cultured as well. Blood cultures from 12/05 still negative. -Plan for discharge when stable with hospice. No change today. So far vitals stable. (3) Sepsis: Sepsis likely 2/2 GI source (4) Frontotemporal dementia: Severe. Aphasic at baseline. - Continue home memantine, Seroquel. Continue home Depakote. - Palliative care consult placed as patient has been under palliative care service in the past, with goal to discuss goals of care with patient's and determine home versus inpatient status for antibiotics/hospice care. (5) Hypothyroidism: TSH was 3.77 this admission. No signs/symptoms of hypo-/hyperthyroidism. - Continue home Synthroid 88 mcg (6) DVT prophylaxis: Heparin 5000 units SQ Q12h Admission and Anticipated Discharge Date Admission Date: December 04, 2020 Subjective Patient is non verbal and has no complaints. Review of Systems Review of Systems: All systems reviewed & are unremarkable except as noted in HPI & below Physical Exam Physical Exam: Constitutional: + ill appearing and + disheveled Eyes: EOM intact bilaterally; no conjunctival abnormality ENMT: external ear and nose normal, oropharynx normal Neck: trachea midline, no thyromegaly normal visual inspection Respiratory: normal respiratory effort, lungs clear to auscultation no respiratory distress Cardiovascular: RRR, no murmur, no edema Gastrointestinal (Abdomen): Inspection/Auscultation: abdomen normal to inspection; abdomen not distended Musculoskeletal: no cyanosis or clubbing, extremities motor strength 5/5 Skin: no rashes, warm and dry Neurologic: moves all extremities and awake Psychiatric: Eye Contact: + poor eye contact (Makes eye contact, then looks around and has no responses.) PG Care Time/CCT Total # of Minutes Spent Total Time Spent with Patient: Total time spent is greater than 50% in coordination of care (as documented) at patient's floor/unit and/or counseling patient: Coding Level of Care Code 18530 Subseq Hosp Care Lvl 2 Diagnoses Comfort measures only status Z51.5 History of biliary duct stent placement Z98.890 Sepsis A41.9 Sepsis acute organ dysfunction status: without acute organ dysfunction Sepsis type: sepsis due to unspecified organism Frontotemporal dementia G31.09; F02.80 Hypothyroidism E03.9 Hypothyroidism type: unspecified DVT prophylaxis Z29.9 Time Spent (min) 25 (1) Hypothyroidism Hypothyroidism type: unspecified Qualified Code(s): E03.9 - Hypothyroidism, unspecified (2) Sepsis Sepsis acute organ dysfunction status: without acute organ dysfunction Sepsis type: sepsis due to unspecified organism Qualified Code(s): A41.9 - Sepsis, unspecified organism
[2020-12-11] MEDS: LEVOTHYROXINE SODIUM 88 MCG TABLET PO SCH (06:13)
[2020-12-11] MEDS: allopurinoL 100 MG TAB PO SCH (08:50)
[2020-12-11] MEDS: FAMOTIDINE 20 MG TAB PO SCH ×2 (08:50→20:03)
[2020-12-11] MEDS: QUEtiapine FUMARATE 100 MG TABLET PO SCH ×3 (08:51→20:03)
[2020-12-11] MEDS: ESCITALOPRAM OXALATE 10 MG TAB PO SCH (08:51)
[2020-12-11] MEDS: DIVALPROEX SODIUM SPRINKLE 125 MG CAP PO SCH ×2 (08:52→20:02)
[2020-12-11] MEDS: DOCUSATE SODIUM/SENNA 50/8.6MG TAB PO SCH ×2 (08:53→20:05)
--- NOTE | 2020-12-11 21:25 | Hospitalist Progress Note ---
Date of Service December 11, 2020 Assessment & Plan (1) Comfort measures only status: Discussed with his on 12/08. When he was mentally capable, he was clear that he would not want aggressive medical measures at this point in his life. She would like to make him comfort measures only. Given the fact that his infection may not be curable without more medical procedures, I think this is entirely reasonable. - Made comfort measures only. His will likely visit him in the hospital. (2) History of biliary duct stent placement: Sepsis likely 2/2 GI source, infected biliary stent. Was placed with plan for removal in 11/2020, but he was Covid-positive and this was rescheduled. - S/p ERCP on 12/[address] Monk with stent removal and sludge found. - Switch to Zosyn. Re-cultured as well. Blood cultures from 12/05 still negative. -Plan for discharge when stable with hospice. No change today. So far vitals stable. (3) Sepsis: Sepsis likely 2/2 GI source (4) Frontotemporal dementia: Severe. Aphasic at baseline. - Continue home memantine, Seroquel. Continue home Depakote. - Palliative care consult placed as patient has been under palliative care service in the past, with goal to discuss goals of care with patient's and determine home versus inpatient status for antibiotics/hospice care. (5) Hypothyroidism: TSH was 3.77 this admission. No signs/symptoms of hypo-/hyperthyroidism. - Continue home Synthroid 88 mcg (6) DVT prophylaxis: Heparin 5000 units SQ Q12h Admission and Anticipated Discharge Date Admission Date: December 04, 2020 Subjective Patient is resting comfortably. Review of Systems Review of Systems: Unobtainable due to cognitive status Physical Exam Physical Exam: Constitutional: + ill appearing and + disheveled Eyes: EOM intact bilaterally; no conjunctival abnormality ENMT: external ear and nose normal, oropharynx normal Neck: trachea midline, no thyromegaly normal visual inspection Respiratory: normal respiratory effort, lungs clear to auscultation no respiratory distress Cardiovascular: RRR, no murmur, no edema Gastrointestinal (Abdomen): Inspection/Auscultation: abdomen normal to inspection; abdomen not distended Musculoskeletal: no cyanosis or clubbing, extremities motor strength 5/5 Skin: no rashes, warm and dry Neurologic: moves all extremities and awake Psychiatric: Eye Contact: + poor eye contact (Makes eye contact, then looks around and has no responses.) PG Care Time/CCT Total # of Minutes Spent Total Time Spent with Patient: Total time spent is greater than 50% in coordination of care (as documented) at patient's floor/unit and/or counseling patient: Coding Level of Care Code 02636 Subseq Hosp Care Lvl 1 Diagnoses Comfort measures only status Z51.5 History of biliary duct stent placement Z98.890 Sepsis A41.9 Sepsis acute organ dysfunction status: without acute organ dysfunction Sepsis type: sepsis due to unspecified organism Frontotemporal dementia G31.09; F02.80 Hypothyroidism E03.9 Hypothyroidism type: unspecified DVT prophylaxis Z29.9 (1) Hypothyroidism Hypothyroidism type: unspecified Qualified Code(s): E03.9 - Hypothyroidism, unspecified (2) Sepsis Sepsis acute organ dysfunction status: without acute organ dysfunction Sepsis type: sepsis due to unspecified organism Qualified Code(s): A41.9 - Sepsis, unspecified organism
[2020-12-12] MEDS: LEVOTHYROXINE SODIUM 88 MCG TABLET PO SCH (05:44)
[2020-12-12] MEDS: DIVALPROEX SODIUM SPRINKLE 125 MG CAP PO SCH (08:39)
[2020-12-12] MEDS: FAMOTIDINE 20 MG TAB PO SCH (08:39)
[2020-12-12] MEDS: DOCUSATE SODIUM/SENNA 50/8.6MG TAB PO SCH (08:39)
[2020-12-12] MEDS: allopurinoL 100 MG TAB PO SCH (08:39)
[2020-12-12] MEDS: QUEtiapine FUMARATE 100 MG TABLET PO SCH (08:39)
[2020-12-12] MEDS: ESCITALOPRAM OXALATE 10 MG TAB PO SCH (08:39)
== END 2020-12-12 13:15 | disposition hospice, inpatient (51) | DRG 919 ==
LOC: ED 20:55 → 3N 20:55 → SUATTDRO 23:58 → 3N 12-04 00:45 → SUATTDRO 12-04 13:13